=== PATIENT | male | born 1940 | race Caucasian/White ===

== ENCOUNTER 2016-08-22 09:31 | Emergency (ER) | payer MEDICARE, BC ==
[~2016-08-22] VITALS: Ht 175.3 cm; Wt 87.1 kg
[~2016-08-22 09:31] MED LIST: /ESOM40CA PO; /MOXI40TA PO; ACET50TA PO; LIPI20TA PO; MULTCAP11 PO; MYCO500T PO; NEUR300C PO; PERSERVISION PO; SYMB16INH INH; VENTAER INH
[2016-08-22] MEDS ORDERED: PYRI60TA2 PO (09:47)
[2016-08-22] MEDS ORDERED: CLIN1CAP5 PO (09:47)
[2016-08-22] MEDS ORDERED: NEXI40CA PO (09:47)
[2016-08-22] MEDS ORDERED: DOXE150C7 PO (09:47)
[2016-08-22] MEDS ORDERED: SAVICAP PO (09:47)
[2016-08-22] MEDS ORDERED: ATOR1TAB21 PO (09:47)
[2016-08-22] MEDS ORDERED: NORCO, ANEXSIA 5/325MG TABLET (HYDROcodone/ACETAMINOPHEN) PO ONE (10:15)
--- NOTE | 2016-08-22 11:23 | REP ---
MAXILLOFACIAL CT WITHOUT CONTRAST: HISTORY: Foreign body. The sinuses are clear. The osteomeatal units are patent. The middle and inferior nasal turbinates are partially paradoxical. There is mild deviation of the nasal septum to the right anteriorly and minimal deviation to the left posteriorly. A spur is present arising from the left side of the nasal septum. The cribriform plate, medial marcano of the orbits and optic canals are intact. The carotid canals form a segment of the posterolateral marcano of the sphenoid sinus. The sphenoid sinus septa insert into the internal carotid canal marcano. Minimal soft tissue swelling is present overlying the left maxillary sinus. There is no radiopaque foreign body. IMPRESSION: There is no acute or chronic sinusitis. Signed by Marcial Bernal MD 08/22/2016 11:26 A
[2016-08-22] MEDS ORDERED: PERC5TAB6 PO (11:24)
[2016-08-22 11:31] VITALS: BP 131/71
[2016-08-23] MEDS ORDERED: PERC10TA17 PO (09:58)
[2016-08-23] MEDS ORDERED: BACT800T5 PO (13:03)
== END 2016-08-22 11:41 | disposition home or self-care (01) ==
LOC: M ED 10:22
DX: L03.211 Cellulitis of face (principal); E78.5 Hyperlipidemia, unspecified; Z79.899 Other long term (current) drug therapy; Z87.891 Personal history of nicotine dependence

== ENCOUNTER 2016-08-23 04:20 | Emergency (ER) | payer MEDICARE, BC ==
[~2016-08-23] VITALS: Ht 175.3 cm; Wt 87.1 kg
[~2016-08-23 04:20] MED LIST changes: +ATOR1TAB21 PO; +CLIN1CAP5 PO; +DOXE150C7 PO; +NEXI40CA PO; +PERC5TAB6 PO; +PYRI60TA2 PO; +SAVICAP PO
[2016-08-23] MEDS ORDERED: KETOROLAC 30 MG/ML VIAL (J1885) IV ONE (06:45)
[2016-08-23] MEDS ORDERED: NS 1,000 ML IV ONE (06:45)
[2016-08-23] MEDS ORDERED: MORPHINE 2 MG/ML 1ML SYRINGE IV ONE (06:45)
[2016-08-23] MEDS ORDERED: VANCOMYCIN HCL 1,000 MG, VIAL MATE ADAPTER 1 EACH in D5W 250 ML IV ONE (07:30)
[2016-08-23] MEDS ORDERED: CLINDAMYCIN 600 MG in APPROPRIATE DILUENT 1 EA IV ONE (07:30)
[2016-08-23 07:50] LABS: BASO % 0.5 % (0.0-1.0); EOS % 0.8 % (0.0-3.0); LARGE UNSTAINED CELL # 0.1 K/mm3 (0.0-0.4); LYMPH # 0.7 K/mm3 (1.5-4.5); LYMPH % 12.9 % (24.0-44.0); MEAN CORPUSCULAR HEMOGLOBIN 29.9 pg (27.0-33.0); MEAN CORPUSCULAR HGB CONC 33.6 g/dl (32.0-36.5); MEAN CORPUSCULAR VOLUME 89.2 fl (80.0-96.0); MONO # 0.4 K/mm3 (0.0-0.8); MONO % 7.4 % (0.0-5.0); NEUTROPHILS # 3.9 K/mm3 (1.8-7.7); NEUTROPHILS % 76.4 % (36.0-66.0); PLATELET COUNT, AUTOMATED 177 k/mm3 (150-450); RED CELL DISTRIBUTION WIDTH 12.5 % (11.5-14.5); WHITE BLOOD COUNT 5.2 K/mm3 (4.0-10.0)
[2016-08-23 07:56] LABS: INR 0.92
[2016-08-23 08:12] LABS: ALBUMIN 3.8 GM/DL (3.2-5.2); ALBUMIN/GLOBULIN RATIO 1.41 (1.00-1.93); ALKALINE PHOSPHATASE 75 U/L (45-117); ALT/SGPT 21 U/L (12-78); ANION GAP 4 MEQ/L (8-16); AST/SGOT 16 U/L (15-37); BILIRUBIN,DIRECT 0.1 MG/DL (0.0-0.2); BILIRUBIN,TOTAL 0.4 MG/DL (0.2-1.0); BLOOD UREA NITROGEN 15 MG/DL (7-18); CALCIUM LEVEL 8.3 MG/DL (8.8-10.2); CARBON DIOXIDE LEVEL 30 MEQ/L (21-32); CHLORIDE LEVEL 106 MEQ/L (98-107); CREATININE FOR GFR 0.92 MG/DL (0.70-1.30); GLOMERULAR FILTRATION RATE > 60.0 (>42); GLUCOSE, FASTING 113 MG/DL (83-110); POTASSIUM SERUM 3.6 MEQ/L (3.5-5.1); SODIUM LEVEL 140 MEQ/L (136-145); TOTAL PROTEIN 6.5 GM/DL (6.4-8.2)
[2016-08-23] MEDS ORDERED: methylPREDNISolone INJ 125 MG/2 ML VIAL (J2930) IV ONE (08:30)
[2016-08-23] MEDS ORDERED: PERC10TA17 PO (09:58)
[2016-08-23] MEDS ORDERED: PERCOCET 5MG/325MG TAB PO ONE (10:00)
[2016-08-23 10:04] VITALS: BP 163/79
[2016-08-23] MEDS ORDERED: BACT800T5 PO (13:03)
[2016-08-24] MEDS ORDERED: CLEO300C2 PO (09:53)
[2016-08-24] MEDS ORDERED: DOXE25CA PO (09:56)
[2016-08-24] MEDS ORDERED: BACT800T5 PO (09:56)
[2016-08-24] MEDS ORDERED: OXYC1TAB16 PO (09:56)
== END 2016-08-23 10:16 | disposition home or self-care (01) ==
LOC: M ED 05:16
DX: L03.211 Cellulitis of face (principal); E78.5 Hyperlipidemia, unspecified; K21.9 Gastro-esophageal reflux disease without esophagitis; G70.00 Myasthenia gravis without (acute) exacerbation; Z79.899 Other long term (current) drug therapy; Z87.891 Personal history of nicotine dependence

== ENCOUNTER 2016-08-24 09:24 | Inpatient (IN) | payer MEDICARE, BC ==
[2016-08-23] MEDS: MYCOPHENOLATE MOFETIL 250 MG CAP (J7517) PO SCH (09:00)
[~2016-08-24] VITALS: Ht 175.3 cm; Wt 87.4 kg
[~2016-08-24 09:24] MED LIST changes: +BACT800T5 PO; +PERC10TA17 PO
[2016-08-24] MEDS ORDERED: FLUORESCEIN OPHTH 1 MG STRIP OU ONE ×2 (09:45→17:35)
[2016-08-24] MEDS ORDERED: ONDANSETRON 4MG/2ML VIAL (J2405) IV ONE (09:45)
[2016-08-24] MEDS ORDERED: CLEO300C2 PO (09:53)
[2016-08-24] MEDS ORDERED: DOXE25CA PO (09:56)
[2016-08-24] MEDS ORDERED: OXYC1TAB16 PO (09:56)
[2016-08-24] MEDS ORDERED: BACT800T5 PO (09:56)
[2016-08-24 10:21] LABS: BASO % 0.4 % (0.0-1.0); EOS % 0.5 % (0.0-3.0); LARGE UNSTAINED CELL # 0.1 K/mm3 (0.0-0.4); LARGE UNSTAINED CELL % 1.6 % (0.0-4.0); LYMPH # 0.5 K/mm3 (1.5-4.5); LYMPH % 8.3 % (24.0-44.0); MEAN CORPUSCULAR HEMOGLOBIN 28.4 pg (27.0-33.0); MEAN CORPUSCULAR HGB CONC 31.9 g/dl (32.0-36.5); MEAN CORPUSCULAR VOLUME 89.2 fl (80.0-96.0); MONO # 0.3 K/mm3 (0.0-0.8); MONO % 5.1 % (0.0-5.0); NEUTROPHILS # 4.7 K/mm3 (1.8-7.7); NEUTROPHILS % 84.2 % (36.0-66.0); PLATELET COUNT, AUTOMATED 153 k/mm3 (150-450); RED CELL DISTRIBUTION WIDTH 12.5 % (11.5-14.5); WHITE BLOOD COUNT 5.6 K/mm3 (4.0-10.0)
[2016-08-24 10:41] LABS: ALBUMIN 3.4 GM/DL (3.2-5.2); ALBUMIN/GLOBULIN RATIO 1.13 (1.00-1.93); ALKALINE PHOSPHATASE 71 U/L (45-117); ALT/SGPT 22 U/L (12-78); ANION GAP 8 MEQ/L (8-16); AST/SGOT 20 U/L (15-37); BILIRUBIN,DIRECT < 0.1 MG/DL (0.0-0.2); BILIRUBIN,TOTAL 0.3 MG/DL (0.2-1.0); BLOOD UREA NITROGEN 13 MG/DL (7-18); CALCIUM LEVEL 8.5 MG/DL (8.8-10.2); CARBON DIOXIDE LEVEL 28 MEQ/L (21-32); CHLORIDE LEVEL 109 MEQ/L (98-107); CREATININE FOR GFR 0.89 MG/DL (0.70-1.30); GLOMERULAR FILTRATION RATE > 60.0 (>42); GLUCOSE, FASTING 116 MG/DL (83-110); POTASSIUM SERUM 3.6 MEQ/L (3.5-5.1); SODIUM LEVEL 145 MEQ/L (136-145); TOTAL PROTEIN 6.4 GM/DL (6.4-8.2)
[2016-08-24 10:54] LABS: ERYTHROCYTE SEDIMENTATION RATE 7 mm/hr (0-20)
[2016-08-24] MEDS ORDERED: VANCOMYCIN HCL 1,000 MG, VIAL MATE ADAPTER 1 EACH in D5W 250 ML IV ONE (11:30)
[2016-08-24] MEDS ORDERED: ONDANSETRON 4MG/2ML VIAL (J2405) IV PRN (13:30)
[2016-08-24] MEDS ORDERED: PERCOCET 5MG/325MG TAB PO PRN (13:30)
[2016-08-24] MEDS ORDERED: PYRIDOSTIGMINE 60 MG TAB PO PRN (13:30)
--- NOTE | 2016-08-24 14:55 | HPE ---
DATE OF ADMISSION: 08/24/2016 PRIMARY CARE PHYSICIAN: Dr. Linda CHIEF COMPLAINT: Left sided facial pain. HISTORY OF PRESENT ILLNESS: The patient is a 76-year-old man who had redness below his left eye, which started approximately six days ago. He was seen by his primary care provider and started on Bactrim. However, it progressed and the pain became worse, had a burning nature. He presented to the emergency room. There was concern for preseptal cellulitis. The patient was added clindamycin to his Bactrim. However, his symptoms progressed and he continued to return to the ER daily until he presented today with a fairly diffuse rash on his left periorbital area extending to the nose. The patient denies fevers, but associates a burning sensation to the left side of his face. He denied dysphagia, pain with ocular movements, difficulty with vision on the left side of his face. He denies chest pain, shortness of breath. PAST MEDICAL HISTORY: Myasthenia gravis. Dyslipidemia. Gastroesophageal reflux disease (GERD). Allergic rhinitis. Vitamin D deficiency. Chronic obstructive pulmonary disease (COPD). HOME MEDICATIONS: - clindamycin 300 mg three times a day as prescribed by the emergency room - Bactrim DS one tablet by mouth twice a day as prescribed by his primary care provider - oxycodone/acetaminophen 10/325 one tablet every 4 hours as needed pain - SAVision two capsules by mouth daily - atorvastatin 20 mg at bedtime - doxepin 25 mg at bedtime - Nexium 40 mg at bedtime - mycophenolate 1 gram by mouth twice a day - pyridostigmine 60 mg three times a day as needed for pain ALLERGIES: No known drug allergies. PAST SURGICAL HISTORY: He had a knee arthroplasty and a hernia repair. SOCIAL HISTORY: He does utilize chewing tobacco. He denies any other tobacco products or smoking tobacco. He denies alcohol or illicit drug use. He lives with his and daughter. REVIEW OF SYSTEMS: Negative other than history of present illness. FAMILY HISTORY: Noncontributory. PHYSICAL EXAMINATION: Temperature 97.5, pulse 73, respiratory rate 16, blood pressure 151/72, oxygen saturation 100% on room air. GENERAL: He is a pleasant elderly male lying in a stretcher at a 60 degree angle. He does not appear to be in any acute distress. HEENT: He does have a fairly diffuse erythematous rash in the V1 distribution on the left side of his face with vesicles of varying stages, some of which have ruptured with dry superficial honeycombing. It does extend the left side of his nose. He does have some left eyelid droop associated with this. His extraocular muscles are intact. There does appear to be any conjunctivitis. He denies any pain and there is nothing to suggest uveitis. Acuity on confrontation is intact. CARDIOVASCULAR EXAM: S1 and S2 regular. RESPIRATORY EXAM: Clear. ABDOMINAL EXAM: Obese. EXTREMITIES: No clubbing, cyanosis, or edema. LABORATORY STUDIES: WBC 5.6, hemoglobin 13.3, hematocrit 41.7, platelet count 153. Chemistry panel: Sodium 145, potassium 3.6, chloride 109, bicarb 28, BUN 13, creatinine 0.8. The patient did have a maxillofacial CT scan completed during his ER visit on 08/22 which revealed no acute or chronic sinusitis. 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 PROBLEMS: 1. Herpes ophthalmicus. The patient is on mycophenolate so he is mildly immunocompromised. We will place him on acyclovir 500 mg every 8 hours IV. I will also continue him on clindamycin IV to assess any superimposed cellulitic infection leading to the break in the skin from his herpes ophthalmicus. I have spoken with Dr. Evans of opthalmology who will see the patient in consultation. I will also provide the patient with 10 mg of amitriptyline by mouth at bedtime for pain. He may benefit from titration up with this. Will also provide him with additional pain medication as a standby as well as antiemetics. He will be admitted to the medical/surgical floor to the care of Dr. Castro who will continue following the patient at 7:00 a.m. 2. Dyslipidemia. Continue with atorvastatin. 3. Gastroesophageal reflux disease (GERD). Continue with Protonix. 4. Myasthenia gravis. Continue with pyridostigmine and mycophenolate. 5. Deep vein thrombosis (DVT) prophylaxis. The patient will be on Lovenox. DISPOSITION: The patient will be admitted to Dr. Castro's service who will follow the patient at 7:00 a.m.
[2016-08-24] MEDS: ACYCLOVIR 500 MG in D5W MINI-BAG PLUS 100 ML IV SCH (15:08)
[2016-08-24 15:30] VITALS: BP 176/83
[2016-08-24] MEDS: CLINDAMYCIN 600 MG in APPROPRIATE DILUENT 1 EA IV SCH (16:47)
[2016-08-24] MEDS ORDERED: TETRACAINE 0.5% OPHTH SOLN 4ML XX ONE (17:15)
--- NOTE | 2016-08-24 20:33 | ECGEPIP ---
Stationary ECG Study [facility] - ED Test Date: 2016-08-24 Pat Name: RENE LOMBARDI Department: Room: - Gender: M Care Worker: rn : 1940 Requested By: Eileen Rey Order Number: [id number] Reading MD: Eileen Rey Measurements Intervals [place] Rate: 77 P: 47 [place]: 167 QRS: 53 QRSD: 98 T: 37 QT: 353 QTc: 401 Interpretive Statements SINUS RHYTHM WITH OCCASIONAL VENTRICULAR PREMATURE COMPLEXES NSTTW ABNORMALITY DECREASED RATE 02/05/13 Electronically Signed On 08-24-2016 20:32:56 EDT by Eileen Rey
[2016-08-24 21:00] VITALS: BP 139/65
[2016-08-24] MEDS: DOXEPIN 25 MG CAP PO SCH (21:05)
[2016-08-24] MEDS: AMITRIPTYLINE 10 MG TAB PO SCH (21:05)
[2016-08-24] MEDS: ACETAMINOPHEN TAB 650MG DOSE (2X325MG) PO PRN (21:05)
[2016-08-24] MEDS: PANTOPRAZOLE 40MG TAB (PROTONIX) PO SCH (21:05)
[2016-08-24] MEDS: ATORVASTATIN 20 MG TAB PO SCH (21:05)
[2016-08-24] MEDS: MYCOPHENOLATE MOFETIL 250 MG CAP (J7517) PO SCH (21:05)
[2016-08-24] MEDS: ERYTHROMYCIN OPHTH OINT OS SCH (21:06)
[2016-08-24] MEDS: MUPIROCIN 2% OINT 22 GM TUBE TOP SCH (21:06)
[2016-08-25] MEDS: CLINDAMYCIN 600 MG in APPROPRIATE DILUENT 1 EA IV SCH ×2 (01:32→08:28)
[2016-08-25] MEDS: ACETAMINOPHEN TAB 650MG DOSE (2X325MG) PO PRN ×3 (01:38→21:12)
[2016-08-25] MEDS: ERYTHROMYCIN OPHTH OINT OS SCH ×7 (04:26→23:37)
[2016-08-25] MEDS: ACYCLOVIR 500 MG in D5W MINI-BAG PLUS 100 ML IV SCH ×5 (06:13→23:38)
[2016-08-25 07:00] VITALS: BP 145/70
[2016-08-25] MEDS: PERCOCET 5MG/325MG TAB PO PRN (07:03)
[2016-08-25 08:02] LABS: BASO % 0.6 % (0.0-1.0); LARGE UNSTAINED CELL # 0.1 K/mm3 (0.0-0.4); LARGE UNSTAINED CELL % 2.9 % (0.0-4.0); LYMPH # 0.6 K/mm3 (1.5-4.5); LYMPH % 13.4 % (24.0-44.0); MEAN CORPUSCULAR HEMOGLOBIN 29.4 pg (27.0-33.0); MEAN CORPUSCULAR HGB CONC 33.5 g/dl (32.0-36.5); MEAN CORPUSCULAR VOLUME 87.6 fl (80.0-96.0); MONO # 0.4 K/mm3 (0.0-0.8); MONO % 9.2 % (0.0-5.0); NEUTROPHILS # 3.4 K/mm3 (1.8-7.7); PLATELET COUNT, AUTOMATED 144 k/mm3 (150-450); RED CELL DISTRIBUTION WIDTH 12.6 % (11.5-14.5); WHITE BLOOD COUNT 4.6 K/mm3 (4.0-10.0)
[2016-08-25 08:13] LABS: ANION GAP 3 MEQ/L (8-16); BLOOD UREA NITROGEN 11 MG/DL (7-18); CALCIUM LEVEL 7.7 MG/DL (8.8-10.2); CARBON DIOXIDE LEVEL 30 MEQ/L (21-32); CHLORIDE LEVEL 106 MEQ/L (98-107); CREATININE FOR GFR 0.92 MG/DL (0.70-1.30); GLOMERULAR FILTRATION RATE > 60.0 (>42); GLUCOSE, FASTING 116 MG/DL (83-110); POTASSIUM SERUM 3.2 MEQ/L (3.5-5.1); SODIUM LEVEL 139 MEQ/L (136-145)
[2016-08-25] MEDS: MYCOPHENOLATE MOFETIL 250 MG CAP (J7517) PO SCH ×2 (08:28→20:01)
[2016-08-25] MEDS: ENOXAPARIN 40 MG/0.4 ML SYRINGE (J1650) SC SCH (08:29)
[2016-08-25] MEDS: MUPIROCIN 2% OINT 22 GM TUBE TOP SCH ×2 (08:31→20:01)
[2016-08-25 08:46] LABS: ERYTHROCYTE SEDIMENTATION RATE 12 mm/hr (0-20)
[2016-08-25] MEDS: MEROPENEM INJ 1 GM in D5W MINI-BAG PLUS 100 ML IV SCH ×2 (10:33→18:19)
--- NOTE | 2016-08-25 10:44 | IPNPDOC ---
Text Note Date of Service The patient was seen on 08/25/16. NOTE Subjective: Pt states he has minimal improvement of Left face. No vision changes. No eye pain. Objective: Vitals: (see below) General: No acute distress, laying comfortably in bed. HEENT: Moist mucous membranes. Left face with erythematous rash, honeycombing more so near the left side of the nose. Some minimal left eyelid droop. Visual gray intact. No vesicles noted today. Erythema does extend to the left for head. Neck: No JVD or lymphadenopathy Cardiac: RRR, No murmurs Pulm: Clear to auscultation b/l. No wheezing, rhonchi Abd: NT/ND + BS Ext: No edema or cyanosis Labs (see below) Images: CT Maxillofacial 08/24/16 The sinuses are clear. The osteomeatal units are patent. The middle and inferior nasal turbinates are partially paradoxical. There is mild deviation of the nasal septum to the right anteriorly and minimal deviation to the left posteriorly. A spur is present arising from the left side of the nasal septum. The cribriform plate, medial marcano of the orbits and optic canals are intact. The carotid canals form a segment of the posterolateral marcano of the sphenoid sinus. The sphenoid sinus septa insert into the internal carotid canal marcano. Minimal soft tissue swelling is present overlying the left maxillary sinus. There is no radiopaque foreign body. IMPRESSION: There is no acute or chronic sinusitis. Assessment/Plan 1. Herpes zoster affecting the left side of the face - patient is immunocompromised as he is on mycophenolate. Also gives a history of using a lens grinder rough 2 days prior to this happening raising suspicion for superimposed infection. Continue those acyclovir. Clindamycin changed to meropenem. Ophthalmology consultation with Dr. Evans. On amitriptyline and pain is well- controlled. CT maxillofacial (see above). 2. Myasthenia gravis- stable on mycophenolate as well as pyridostigmine 3. Hyperlipidemia- on statin 4. GERD- on PPI DVT prophy: Lovenox VS,Fishbone, I+O VS, Fishbone, I+O Laboratory Tests 08/25/16 07:44 Calcium Level 7.7 L, Red Blood Count 4.16 L, Mean Corpuscular Volume 87.6, Mean Corpuscular Hemoglobin 29.4, Mean Corpuscular Hemoglobin Concent 33.5, Red Cell Distribution Width 12.6, Neutrophils (%) (Auto) 73.0 H, Lymphocytes (%) (Auto) 13.4 L, Monocytes (%) (Auto) 9.2 H, Eosinophils (%) (Auto) 1.0, Basophils (%) ( Auto) 0.6, Neutrophils # (Auto) 3.4, Lymphocytes # (Auto) 0.6 L, Monocytes # ( Auto) 0.4, Eosinophils # (Auto) 0.0, Basophils # (Auto) 0.0 Vital Signs Date Time Temp Pulse Resp B/P Pulse Ox O2 Delivery O2 Flow Rate FiO2 08/25/16 07:33 18 Room Air 08/25/16 07:00 99.1 80 145/70 96 I&O- Last 24 Hours up to 6 AM 08/25/16 05:59 Intake Total 1130 ml Output Total 100 ml Balance 1030 ml LANA ACOSTA MD Aug 25, 2016 10:44
[2016-08-25 14:00] VITALS: BP 142/69
[2016-08-25] MEDS ORDERED: POTASSIUM CHLORIDE 10 MEQ SR TABLET PO ONE (15:00)
[2016-08-25] MEDS: DOXEPIN 25 MG CAP PO SCH (20:01)
[2016-08-25] MEDS: ATORVASTATIN 20 MG TAB PO SCH (20:01)
[2016-08-25] MEDS: PANTOPRAZOLE 40MG TAB (PROTONIX) PO SCH (20:01)
[2016-08-25] MEDS: AMITRIPTYLINE 10 MG TAB PO SCH (20:01)
[2016-08-25 21:00] VITALS: BP 142/84
[2016-08-26] MEDS: MEROPENEM INJ 1 GM in D5W MINI-BAG PLUS 100 ML IV SCH ×3 (01:04→21:36)
[2016-08-26] MEDS: ACETAMINOPHEN TAB 650MG DOSE (2X325MG) PO PRN ×2 (02:29→14:05)
[2016-08-26] MEDS: ERYTHROMYCIN OPHTH OINT OS SCH ×5 (04:44→21:36)
[2016-08-26] MEDS: PERCOCET 5MG/325MG TAB PO PRN (04:54)
[2016-08-26 06:10] VITALS: BP 161/81
[2016-08-26 06:16] LABS: BASO % 0.4 % (0.0-1.0); EOS # 0.1 K/mm3 (0.0-0.50); EOS % 1.2 % (0.0-3.0); LARGE UNSTAINED CELL # 0.2 K/mm3 (0.0-0.4); LARGE UNSTAINED CELL % 3.4 % (0.0-4.0); LYMPH # 0.7 K/mm3 (1.5-4.5); LYMPH % 13.7 % (24.0-44.0); MEAN CORPUSCULAR HEMOGLOBIN 30.5 pg (27.0-33.0); MEAN CORPUSCULAR HGB CONC 34.5 g/dl (32.0-36.5); MEAN CORPUSCULAR VOLUME 88.4 fl (80.0-96.0); MONO # 0.3 K/mm3 (0.0-0.8); MONO % 6.5 % (0.0-5.0); NEUTROPHILS # 3.7 K/mm3 (1.8-7.7); NEUTROPHILS % 74.8 % (36.0-66.0); PLATELET COUNT, AUTOMATED 164 k/mm3 (150-450); RED CELL DISTRIBUTION WIDTH 12.4 % (11.5-14.5)
[2016-08-26] MEDS: ACYCLOVIR 500 MG in D5W MINI-BAG PLUS 100 ML IV SCH (06:17)
[2016-08-26 06:35] LABS: ANION GAP 8 MEQ/L (8-16); BLOOD UREA NITROGEN 7 MG/DL (7-18); CALCIUM LEVEL 7.9 MG/DL (8.8-10.2); CARBON DIOXIDE LEVEL 27 MEQ/L (21-32); CHLORIDE LEVEL 103 MEQ/L (98-107); CREATININE FOR GFR 0.82 MG/DL (0.70-1.30); GLOMERULAR FILTRATION RATE > 60.0 (>42); GLUCOSE, FASTING 116 MG/DL (83-110); POTASSIUM SERUM 3.1 MEQ/L (3.5-5.1); SODIUM LEVEL 138 MEQ/L (136-145)
[2016-08-26] MEDS ORDERED: POTASSIUM CHLORIDE 10 MEQ SR TABLET PO ONE (08:00)
[2016-08-26] MEDS: MUPIROCIN 2% OINT 22 GM TUBE TOP SCH ×2 (09:00→21:37)
[2016-08-26] MEDS: MYCOPHENOLATE MOFETIL 250 MG CAP (J7517) PO SCH ×2 (09:09→21:38)
[2016-08-26] MEDS: ENOXAPARIN 40 MG/0.4 ML SYRINGE (J1650) SC SCH (09:09)
[2016-08-26] MEDS ORDERED: ISOVUE-370 76% 100ML VIAL (Q9967) As Ordered ONE (09:44)
[2016-08-26] MEDS ORDERED: VANCOMYCIN HCL 1,000 MG, VIAL MATE ADAPTER 1 EACH in D5W 250 ML IV ONE (10:00)
--- NOTE | 2016-08-26 10:20 | PHACANCOPD ---
PHARMACY VANCOMYCIN DOSING Pt Demographics Demographics Patient Age:76 , Weight:87.200 , Gender: male Adjusted Body Weight Date: 08/26/16, Adjusted Body Weight: [NA] Kg Events Past 24 Hours Events Past 24 Hours: YES: Fever, NO: Change in CrCl, Dialysis, Diuretic Therapy, Elevation in WBC, Other, Pending Diagnostics, Pending Procedures Vancomycin Vancomycin indication: SEPSIS Vancomycin Target Ranges: 15-20 mcg/ml Vancomycin Load Y/N: Yes Load Dose Date Time Vancomycin Load Dose: 1000mg Date: 08/26 Time: ~10am Vancomycin Dose Date: 08/26/16. Current Vancomycin Dose: [1g q12h @18] Intermittent Dosing?: No Labs Labs Vital Signs Label Value Date Time Patient Temperature 99.5 degrees F 08/26/16 0626 Temperature Source Rectal 08/26/16 0626 Patient Temperature 100.2 degrees F 08/26/16 0610 Temperature Source Rectal 08/26/16 0610 Patient Temperature 100.3 degrees F 08/26/16 0107 Temperature Source Rectal 08/26/16 0107 Item Value Date Time White Blood Count 5.6 K/mm3 08/24/16 1004 White Blood Count 4.6 K/mm3 08/25/16 0744 White Blood Count 5.0 K/mm3 08/26/16 0532 Creatinine 0.89 MG/DL 08/24/16 1004 Creatinine 0.92 MG/DL 08/25/16 0744 Creatinine 0.82 MG/DL 08/26/16 0532 C-Reactive Protein, Quantitative 0.70 MG/DL H 08/24/16 1004 C-Reactive Protein, Quantitative 0.86 MG/DL H 08/25/16 0744 C-Reactive Protein, Quantitative 0.92 MG/DL H 08/26/16 0532 Micro Microbiology 08/24/16 Blood Culture - Preliminary, Resulted No growth after 24 hours . All specim... 08/24/16 Blood Culture - Preliminary, Resulted No growth after 24 hours . All specim... 08/25/16 Wound Culture, Received Pending 08/24/16 Herpes Virus DNA (PCR), Received Pending Creatinine Clearance Date:08/26/16. Creatinine Clearance: [77 ml/min]. Assessment and Plan Maintaining Current Dose?: Yes Reason for dose change: No Dose Change Pharmacist Note Pharmacist Note Date: 08/26/16. Pharmacist note: pt was admitted on 08/24 for facial/ophthalmic cellulitis secondary to herpes zoster. He was treated with clindamycin and Bactrim DS as an outpatient. During admission, he was started on acyclovir IV and Clindamycin 600mg IV q8h. After 24 hours, clindamycin was switched to meropenem. Vancomycin has been added today. Pt has not been on vancomycin at our facility in the past and does not have an apparent Hx of MRSA. Pt's medical Hx is significant for myasthenia gravis and is on immunosuppressive therapy ( cellcept). Pt has been febrile x24 hours, SCr is at baseline and is stable, cultures are pending. I have put in a vancomycin IV 1g dose for this morning and started 1g q12h dosing this evening. We will continue to monitor and order a trough as necessary. Sandro Sesay Pharm.D. Aug 26, 2016 10:20
--- NOTE | 2016-08-26 10:51 | IPNPDOC ---
Text Note Date of Service The patient was seen on 08/26/16. NOTE Subjective: Pt states his swelling is worse today. No vision changes. No eye pain. Objective: Vitals: (see below) General: No acute distress, laying comfortably in bed. HEENT: Moist mucous membranes. Left face with erythematous rash, honeycombing more so near the left side of the nose, which has increased and weeping. Some minimal left eyelid droop. Visual gray intact. Erythema does extend to the left for head and left lip; worse than yesterday. No airway compromise. Neck: No JVD or lymphadenopathy Cardiac: RRR, No murmurs Pulm: Clear to auscultation b/l. No wheezing, rhonchi Abd: NT/ND + BS Ext: No edema or cyanosis Labs (see below) Images: CT Maxillofacial 08/24/16 The sinuses are clear. The osteomeatal units are patent. The middle and inferior nasal turbinates are partially paradoxical. There is mild deviation of the nasal septum to the right anteriorly and minimal deviation to the left posteriorly. A spur is present arising from the left side of the nasal septum. The cribriform plate, medial marcano of the orbits and optic canals are intact. The carotid canals form a segment of the posterolateral marcano of the sphenoid sinus. The sphenoid sinus septa insert into the internal carotid canal marcano. Minimal soft tissue swelling is present overlying the left maxillary sinus. There is no radiopaque foreign body. IMPRESSION: There is no acute or chronic sinusitis. Assessment/Plan 1. Herpes zoster affecting the left side of the face - patient is immunocompromised as he is on mycophenolate. Also gives a history of using a chicle grinder feeder 2 days prior to this happening raising suspicion for superimposed infection. Discussed with Dr. Chopra, will increase acyclovir to 10mg/kg, change meropenem to vancomycin, and warm soaks. Ophthalmology consultation with Dr. Evans. On amitriptyline and pain is well-controlled. CT maxillofacial (see above ). Will repeat today CT today. 2. Myasthenia gravis- stable on mycophenolate as well as pyridostigmine 3. Hyperlipidemia- on statin 4. GERD- on PPI DVT prophy: Lovenox VS,Fishbone, I+O VS, Fishbone, I+O Laboratory Tests 08/26/16 05:32 Calcium Level 7.9 L, Red Blood Count 4.31, Mean Corpuscular Volume 88.4, Mean Corpuscular Hemoglobin 30.5, Mean Corpuscular Hemoglobin Concent 34.5, Red Cell Distribution Width 12.4, Neutrophils (%) (Auto) 74.8 H, Lymphocytes (%) (Auto) 13.7 L, Monocytes (%) (Auto) 6.5 H, Eosinophils (%) (Auto) 1.2, Basophils (%) ( Auto) 0.4, Neutrophils # (Auto) 3.7, Lymphocytes # (Auto) 0.7 L, Monocytes # ( Auto) 0.3, Eosinophils # (Auto) 0.1, Basophils # (Auto) 0.0 Vital Signs Date Time Temp Pulse Resp B/P Pulse Ox O2 Delivery O2 Flow Rate FiO2 08/26/16 06:26 99.5 08/26/16 06:10 75 18 161/81 94 Room Air I&O- Last 24 Hours up to 6 AM 08/26/16 05:59 Intake Total 3270 ml Output Total 2000 ml Balance 1270 ml LANA ACOSTA MD Aug 26, 2016 10:51
--- NOTE | 2016-08-26 12:06 | REP ---
MAXILLOFACIAL CT WITH CONTRAST: HISTORY: Increased facial swelling. CONTRAST: Isovue 370, 75 mL. COMPARISON: 08/22/2016. The sinuses are clear. The osteomeatal units are patent. The middle and inferior nasal turbinates are partially paradoxical. There is mild deviation of the nasal septum to the right anteriorly and minimal deviation of the nasal septum to the left posteriorly. A spur is present arising from the left side of the nasal septum. The cribriform plate, medial marcano of the orbits, and optic canals are intact. The carotid canals form a segment of the posterolateral marcano of the sphenoid sinus. The sphenoid sinus septa insert into the internal carotid canal marcano. There is soft tissue thickening along the buccal surface of the left maxilla and mandible consistent with a phlegmon. There is enlargement of the left platysma muscle. Stranding is present in the overlying subcutaneous tissue. Soft tissue thickening is present overlying the left maxillary sinus and orbit. These findings are consistent with edema. The naso-, devin-, and hypopharynx are normal in appearance. Small lymph nodes less than 1 cm in size are present in the internal jugular chains, posterior triangles, and submandibular areas. IMPRESSION: 1. There is soft tissue thickening along the buccal surface of the left maxilla and body of the mandible consistent with a small phlegmon. Edema is present of the overlying subcutaneous tissue that has increased compared to the previous study. Signed by Marcial Bernal MD 08/27/2016 08:11 A
[2016-08-26 12:37] LABS: ANION GAP 4 MEQ/L (8-16); BLOOD UREA NITROGEN 7 MG/DL (7-18); CALCIUM LEVEL 8.2 MG/DL (8.8-10.2); CARBON DIOXIDE LEVEL 31 MEQ/L (21-32); CHLORIDE LEVEL 101 MEQ/L (98-107); CREATININE FOR GFR 0.97 MG/DL (0.70-1.30); GLOMERULAR FILTRATION RATE > 60.0 (>42); GLUCOSE, FASTING 104 MG/DL (83-110); SODIUM LEVEL 136 MEQ/L (136-145)
[2016-08-26 14:00] VITALS: BP 146/74
[2016-08-26] MEDS ORDERED: NS IV SCH (15:00)
[2016-08-26] MEDS ORDERED: ACYCLOVIR IV SCH (15:00)
[2016-08-26] MEDS: ACYCLOVIR IV SCH (15:25)
[2016-08-26] MEDS: NS IV SCH (15:25)
[2016-08-26] MEDS: D5W/0.9% SODIUM CHLORIDE 1,000 ML IV SCH (15:25)
[2016-08-26] MEDS: VANCOMYCIN HCL 1,000 MG, VIAL MATE ADAPTER 1 EACH in D5W 250 ML IV SCH (18:18)
[2016-08-26 19:05] LABS: ANION GAP 5 MEQ/L (8-16); BLOOD UREA NITROGEN 5 MG/DL (7-18); CALCIUM LEVEL 8.4 MG/DL (8.8-10.2); CARBON DIOXIDE LEVEL 32 MEQ/L (21-32); CHLORIDE LEVEL 103 MEQ/L (98-107); CREATININE FOR GFR 0.95 MG/DL (0.70-1.30); GLOMERULAR FILTRATION RATE > 60.0 (>42); GLUCOSE, FASTING 105 MG/DL (83-110); POTASSIUM SERUM 3.7 MEQ/L (3.5-5.1); SODIUM LEVEL 140 MEQ/L (136-145)
[2016-08-26] MEDS ORDERED: TRIFLURIDINE 1% OPHTH SOLN 7.5 ML OS SCH (20:15)
[2016-08-26] MEDS: DOXEPIN 25 MG CAP PO SCH (21:37)
[2016-08-26] MEDS: TRIFLURIDINE 1% OPHTH SOLN 7.5 ML OS SCH (21:37)
[2016-08-26] MEDS: PANTOPRAZOLE 40MG TAB (PROTONIX) PO SCH (21:38)
[2016-08-26] MEDS: ATORVASTATIN 20 MG TAB PO SCH (21:38)
[2016-08-26] MEDS: AMITRIPTYLINE 10 MG TAB PO SCH (21:38)
[2016-08-26 22:00] VITALS: BP 124/80
[2016-08-27] MEDS: NS IV SCH ×4 (00:22→22:35)
[2016-08-27] MEDS: ERYTHROMYCIN OPHTH OINT OS SCH ×6 (00:22→20:49)
[2016-08-27] MEDS: ACYCLOVIR IV SCH ×4 (00:22→22:35)
[2016-08-27] MEDS: D5W/0.9% SODIUM CHLORIDE 1,000 ML IV SCH ×3 (00:23→21:04)
[2016-08-27] MEDS: TRIFLURIDINE 1% OPHTH SOLN 7.5 ML OS SCH ×13 (00:25→22:35)
[2016-08-27] MEDS: PERCOCET 5MG/325MG TAB PO PRN (00:26)
[2016-08-27] MEDS: MEROPENEM INJ 1 GM in D5W MINI-BAG PLUS 100 ML IV SCH ×3 (03:41→20:49)
[2016-08-27] MEDS: VANCOMYCIN HCL 1,000 MG, VIAL MATE ADAPTER 1 EACH in D5W 250 ML IV SCH ×2 (05:05→17:47)
[2016-08-27 06:00] VITALS: BP 128/74
[2016-08-27 06:27] LABS: BASO % 0.4 % (0.0-1.0); EOS # 0.1 K/mm3 (0.0-0.50); LARGE UNSTAINED CELL # 0.2 K/mm3 (0.0-0.4); LARGE UNSTAINED CELL % 3.4 % (0.0-4.0); LYMPH % 20.9 % (24.0-44.0); MEAN CORPUSCULAR HEMOGLOBIN 28.9 pg (27.0-33.0); MEAN CORPUSCULAR VOLUME 87.6 fl (80.0-96.0); MONO # 0.3 K/mm3 (0.0-0.8); MONO % 7.7 % (0.0-5.0); NEUTROPHILS # 2.8 K/mm3 (1.8-7.7); NEUTROPHILS % 65.6 % (36.0-66.0); PLATELET COUNT, AUTOMATED 153 k/mm3 (150-450); RED CELL DISTRIBUTION WIDTH 12.4 % (11.5-14.5); WHITE BLOOD COUNT 4.3 K/mm3 (4.0-10.0)
[2016-08-27 06:46] LABS: ALBUMIN/GLOBULIN RATIO 0.97 (1.00-1.93); ALKALINE PHOSPHATASE 60 U/L (45-117); ALT/SGPT 24 U/L (12-78); ANION GAP 5 MEQ/L (8-16); AST/SGOT 22 U/L (15-37); BILIRUBIN,TOTAL 0.3 MG/DL (0.2-1.0); BLOOD UREA NITROGEN 6 MG/DL (7-18); CALCIUM LEVEL 7.8 MG/DL (8.8-10.2); CARBON DIOXIDE LEVEL 29 MEQ/L (21-32); CHLORIDE LEVEL 103 MEQ/L (98-107); CREATININE FOR GFR 0.94 MG/DL (0.70-1.30); GLOMERULAR FILTRATION RATE > 60.0 (>42); GLUCOSE, FASTING 133 MG/DL (83-110); POTASSIUM SERUM 3.5 MEQ/L (3.5-5.1); SODIUM LEVEL 137 MEQ/L (136-145); TOTAL PROTEIN 6.1 GM/DL (6.4-8.2)
[2016-08-27] MEDS: MYCOPHENOLATE MOFETIL 250 MG CAP (J7517) PO SCH ×2 (08:50→20:50)
[2016-08-27] MEDS: MUPIROCIN 2% OINT 22 GM TUBE TOP SCH ×2 (08:50→20:51)
[2016-08-27] MEDS: ENOXAPARIN 40 MG/0.4 ML SYRINGE (J1650) SC SCH (08:50)
[2016-08-27] MEDS: MIRALAX *UNIT DOSE* 17GM PACKET PO SCH ×2 (09:00→20:57)
[2016-08-27] MEDS: ACETAMINOPHEN TAB 650MG DOSE (2X325MG) PO PRN ×2 (09:29→22:36)
[2016-08-27] MEDS ORDERED: DOCUSATE SODIUM 100 MG CAP PO PRN (10:30)
[2016-08-27] MEDS ORDERED: ALBUTEROL SULFATE 2.5 MG/0.5 ML INH NEB SOLN INH PRN (12:00)
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
[2016-08-27] MEDS: IPRATROPIUM 0.5MG/ALBUTEROL 2.5MG INH SOL UD 3ML (DUONEB)(J7620) NEB SCH ×3 (12:09→20:00)
[2016-08-27 14:00] VITALS: BP 122/62
--- NOTE | 2016-08-27 17:08 | CR ---
DATE OF CONSULTATION: 08/27/2016 Time patient was seen was this afternoon at 1520. CONSULTATION REPORT FOR: Dr. Castro ASSEMBLER RADIO AND ELECTRICAL: Dr. Chopra REASON FOR CONSULTATION: Left facial herpes zoster with cellulitis. CHIEF COMPLAINT: Left facial pain. HISTORY OF PRESENT ILLNESS: A 76-year-old male with a past medical history of myasthenia gravis, dyslipidemia, gastroesophageal reflux disease (GERD), allergic rhinitis, vitamin D deficiency, chronic obstructive pulmonary disease (COPD), who presented with left facial pain on 08/24/2016. Per patient, his symptoms started roughly 11 days ago on 08/17/2016. The patient had seen his primary care provider, Dr. Linda. Initially, the face only looked a little bit erythematous and the patient was sent home. It got worse and on the next Saturday, the patient saw Dr. Linda again and was placed on clindamycin 300 mg three times a day. However, the face became very painful. Therefore, on Saturday, the patient went to the emergency room. Emergency room gave the patient Percocet and also placed the patient on Bactrim twice a day. On , the patient's pain got worse. Therefore, patient went to the emergency room again and received a larger dose of Percocet. On Saturday, the patient started shaking and at this point, the patient' s pain was not controlled. Therefore, patient was admitted. Initially, on the day of admission, patient was diagnosed with herpes ophthalmicus and was started on acyclovir 500 mg IV every eight hours along with clindamycin IV. In addition, Dr. Evans from ophthalmology was also consulted and recommended IV antibiotics with erythromycin ointment as well as trifluridine eye droplet along with acyclovir IV and also Bactroban ointment. Patient did have a low-grade temperature more than 24 hours ago with a temperature of 100.2. He did also spike a temperature on admission with a temperature as high as 103 on 08/25/2016. Per patient, initially the face became slightly erythematous and felt like "burning", then the erythema extended and patient started to develop blisters on the left side of his face. Eventually, the entire left face became swollen and he was having problems opening his eyes. In addition, it was extremely painful. In addition, at home, the patient does take Cellcept 1000 mg twice a day for myasthenia gravis which may lead to immunosuppression and lead to increased susceptibility to infections. ALLERGIES: No known drug allergies. HOME MEDICATIONS: Include: - atorvastatin 20 mg by mouth at bedtime - clindamycin 300 mg one tablet by mouth twice a day - doxepin 25 mg one tablet by mouth at bedtime - Nexium 40 mg one tablet by mouth at bedtime - mycophenolate 1000 mg one tablet by mouth twice a day - oxycodone/acetaminophen 10/325 mg one tablet by mouth every four hours as needed - pyridostigmine 60 mg one tablet by mouth three times a day as needed - SAVision two capsules by mouth daily - Bactrim 800-160 mg one tablet by mouth twice a day PAST MEDICAL HISTORY: Includes: 1. Myasthenia gravis. 2. Dyslipidemia. 3. Gastroesophageal reflux disease (GERD). 4. Allergic rhinitis. 5. Vitamin D deficiency. 6. Chronic obstructive pulmonary disease (COPD). PAST SURGICAL HISTORY: Includes: Knee arthroplasty and hernia repair. SOCIAL HISTORY: Patient chews tobacco. Denies any smoking or recreational drug use. Denies any drinking. Patient lives with his and daughter. FAMILY HISTORY: Heart problems run in the family. REVIEW OF SYSTEMS: GENERAL: Patient denies any recent travel or any sick contacts. Denies any weight changes. HEENT: Denies any changes with vision, smell, hearing or taste. Patient does have a swollen face, more on the left side, also swollen around the eye and also swollen lips. However, no trouble swallowing or breathing. No cough. CARDIOVASCULAR: Denies any chest pain or trouble breathing. PULMONARY: Denies any trouble breathing. However, patient does have chronic obstructive pulmonary disease (COPD). GASTROINTESTINAL: Denies any abdominal pains, nausea, vomiting, diarrhea, constipation, any blood in the urine or stool. GENITOURINARY: Denies any problem with urination. MUSCULOSKELETAL: Denies any pain anywhere else. Admits to increased tremors since admission, however. ENDOCRINE: Denies any heat or cold intolerance. HEMATOLOGY/ONCOLOGY: Denies any bleeding anywhere. However, the patient does have bruising on the left side of the face which started after the patient has been admitted. PSYCHIATRIC: Denies any current anxiety or depression. NEUROLOGICAL: Denies any change of sensations. However, he does have myasthenia gravis and follows with neurology. He does have increased tremors since he has been in the hospital. PHYSICAL EXAMINATION: VITAL SIGNS: Temperature was 99.2, pulse 52, respirations 16, blood pressure 122/62, oxygen saturation 97% on room air. GENERAL: Patient is an obese, elderly male who was awake, alert and oriented times three, does not appear to be in distress, laying comfortably in bed with head elevated at 30 degrees. HEENT: Normocephalic. Patient does have significant swelling of his face, more on the left side and also swelling around his eye. His eyelids were not completely shut, however. He was able to open his eye and follow finger. Extraocular motor was intact. Mucosal membrane was moist. However, he does have swollen lips. He does also have a mild lymphadenopathy at the neck. Patient does have a layer of scab over his nose, mostly on the left side. There was also ecchymosis noted on the left face and also there appeared to be skin ulcers on the entire left face which was erythematous and swollen. CARDIOVASCULAR: Regular rate and rhythm. Distant heart sounds. Difficult to auscultate due to increased anteroposterior (AP) diameter. LUNGS: Clear to auscultation bilaterally. Increased AP diameter. ABDOMEN: Obese, positive bowel sounds, soft, nontender, nondistended. No peritoneal signs. EXTREMITIES: No edema, clubbing, or cyanosis. SKIN: Warm and dry. NEUROLOGIC: Cranial nerves II-XII intact. Patient, however, does have increased tremor which appears to be intentional. LABORATORY DATA: WBC 4.3, hemoglobin 13.2, hematocrit 40.1 with a platelet count of 153 and MCV of 57.6. Sodium 137, potassium 3.5, chloride 103, bicarbonate 29, BUN 6, creatinine 0.94, GFR greater than 60, fasting glucose 133, calcium 7.8, total bilirubin 0.3, AST 22, ALT 24, alkaline phosphatase 60, CRP was elevated at 1.63 compared to the day prior which was 0.92, total protein was 6.1, albumin 3 which was low. The patient's blood culture times two are pending and shows no growth after 24 hours. Wound culture from three days ago is pending. Blood culture times two from four days ago shows no growth after four days. Herpes virus DNA PCR is currently pending. Patient had a maxillofacial CT on 08/26/2016 which shows soft tissue thickening along the buccal surface of left maxilla and body of mandible consistent with a small phlegmon, edema is persistent of overlying subcutaneous tissue that has increased compared to previous study. ASSESSMENT AND PLAN: This is a 76-year-old male who presented with herpes ophthalmicus as well as superimposed cellulitis of the left face with immunosuppression from Cellcept. According to the patient and his , the swelling and pain appears to be improving. We will continue patient with trifluridine eye droplet every two hours and also acyclovir 870 mg IV every eight hours, Bactroban ointment topically twice a day, erythromycin ointment every four hours. Continue Merrem and Vancomycin. Dr. Portillo from neurology has been contacted and recommended to lower patient's Cellcept from 1000 mg bid to 500 mg bid and should see him after discharge for dose adjustment. Patient should use pyridostigmine for Myasthenia Gravis flare ups. Nasal culture also has been ordered due to suspicions for MRSA. Continue pain control. My preceptor for this patient encounter was Dr. Arturo Chopra. The preceptor was physically present in the building during the encounter and was fully available as needed. All aspects of the patient interview, examination, medical decision making process, and medical care plan development were reviewed and approved by the preceptor. The preceptor is aware and concurs with the plan as stated in the body of this note and will attest to such by his/her co-signature. VILMA
[2016-08-27] MEDS: AMITRIPTYLINE 10 MG TAB PO SCH (20:50)
[2016-08-27] MEDS: PANTOPRAZOLE 40MG TAB (PROTONIX) PO SCH (20:50)
[2016-08-27] MEDS: ATORVASTATIN 20 MG TAB PO SCH (20:50)
[2016-08-27] MEDS: DOXEPIN 25 MG CAP PO SCH (20:50)
[2016-08-27 22:00] VITALS: BP 124/70
[2016-08-28] MEDS: TRIFLURIDINE 1% OPHTH SOLN 7.5 ML OS SCH ×12 (01:00→22:19)
[2016-08-28] MEDS: PERCOCET 5MG/325MG TAB PO PRN ×2 (03:02→10:04)
[2016-08-28] MEDS: MEROPENEM INJ 1 GM in D5W MINI-BAG PLUS 100 ML IV SCH ×2 (03:03→11:29)
[2016-08-28] MEDS: ERYTHROMYCIN OPHTH OINT OS SCH ×7 (04:00→23:08)
[2016-08-28 05:50] LABS: BASO % 0.6 % (0.0-1.0); EOS # 0.1 K/mm3 (0.0-0.50); EOS % 2.3 % (0.0-3.0); LARGE UNSTAINED CELL # 0.1 K/mm3 (0.0-0.4); LARGE UNSTAINED CELL % 3.4 % (0.0-4.0); LYMPH # 1.3 K/mm3 (1.5-4.5); LYMPH % 31.1 % (24.0-44.0); MEAN CORPUSCULAR HEMOGLOBIN 28.5 pg (27.0-33.0); MEAN CORPUSCULAR HGB CONC 32.9 g/dl (32.0-36.5); MEAN CORPUSCULAR VOLUME 86.7 fl (80.0-96.0); MONO # 0.3 K/mm3 (0.0-0.8); MONO % 6.5 % (0.0-5.0); NEUTROPHILS # 2.2 K/mm3 (1.8-7.7); NEUTROPHILS % 56.1 % (36.0-66.0); PLATELET COUNT, AUTOMATED 152 k/mm3 (150-450); RED CELL DISTRIBUTION WIDTH 12.2 % (11.5-14.5); WHITE BLOOD COUNT 3.9 K/mm3 (4.0-10.0)
[2016-08-28 06:00] VITALS: BP 132/70
[2016-08-28 06:12] LABS: ALBUMIN 2.8 GM/DL (3.2-5.2); ALKALINE PHOSPHATASE 55 U/L (45-117); ALT/SGPT 27 U/L (12-78); ANION GAP 7 MEQ/L (8-16); AST/SGOT 24 U/L (15-37); BILIRUBIN,TOTAL 0.3 MG/DL (0.2-1.0); BLOOD UREA NITROGEN 5 MG/DL (7-18); CALCIUM LEVEL 7.6 MG/DL (8.8-10.2); CARBON DIOXIDE LEVEL 28 MEQ/L (21-32); CHLORIDE LEVEL 105 MEQ/L (98-107); CREATININE FOR GFR 0.81 MG/DL (0.70-1.30); GLOMERULAR FILTRATION RATE > 60.0 (>42); GLUCOSE, FASTING 111 MG/DL (83-110); POTASSIUM SERUM 3.3 MEQ/L (3.5-5.1); SODIUM LEVEL 140 MEQ/L (136-145); TOTAL PROTEIN 5.6 GM/DL (6.4-8.2)
[2016-08-28] MEDS: D5W/0.9% SODIUM CHLORIDE 1,000 ML IV SCH ×2 (06:15→13:31)
[2016-08-28] MEDS: VANCOMYCIN HCL 1,000 MG, VIAL MATE ADAPTER 1 EACH in D5W 250 ML IV SCH (06:18)
[2016-08-28] MEDS: IPRATROPIUM 0.5MG/ALBUTEROL 2.5MG INH SOL UD 3ML (DUONEB)(J7620) NEB SCH ×4 (08:00→20:00)
[2016-08-28] MEDS: ENOXAPARIN 40 MG/0.4 ML SYRINGE (J1650) SC SCH (08:29)
[2016-08-28] MEDS: MYCOPHENOLATE MOFETIL 250 MG CAP (J7517) PO SCH ×2 (08:30→20:44)
[2016-08-28] MEDS: MIRALAX *UNIT DOSE* 17GM PACKET PO SCH ×2 (08:30→20:45)
[2016-08-28] MEDS: MUPIROCIN 2% OINT 22 GM TUBE TOP SCH ×2 (08:31→20:45)
[2016-08-28] MEDS: ACYCLOVIR IV SCH ×2 (08:32→15:18)
[2016-08-28] MEDS: NS IV SCH ×2 (08:32→15:18)
[2016-08-28] MEDS ORDERED: POTASSIUM CHLORIDE 10 MEQ SR TABLET PO ONE (08:45)
--- NOTE | 2016-08-28 09:14 | PHACANCOPD ---
PHARMACY VANCOMYCIN DOSING Pt Demographics Demographics Patient Age:76 , Weight:88.400 , Gender: male Adjusted Body Weight Date: 08/26/16, Adjusted Body Weight: [NA] Kg Events Past 24 Hours Events Past 24 Hours: NO: Change in CrCl, Dialysis, Diuretic Therapy, Elevation in WBC, Fever, Other, Pending Diagnostics, Pending Procedures Vancomycin Vancomycin indication: SEPSIS Vancomycin Target Ranges: 15-20 mcg/ml Vancomycin Load Y/N: Yes Load Dose Date Time Vancomycin Load Dose: 1000mg Date: 08/26 Time: ~10am Vancomycin Dose Date: 08/28/16. Current Vancomycin Dose: [1500MG IV Q12H @ 1600] Date: 08/26/16. Current Vancomycin Dose: [1g q12h @18] Intermittent Dosing?: No Labs Labs Item Value Date Time White Blood Count 5.0 K/mm3 08/26/16 0532 White Blood Count 4.3 K/mm3 08/27/16 0606 White Blood Count 3.9 K/mm3 L 08/28/16 0525 Creatinine 0.94 MG/DL 08/27/16 0606 Creatinine 0.81 MG/DL 08/28/16 0525 Vancomycin Level Trough 10.2 UG/ML 08/28/16 0525 Micro Microbiology 08/26/16 Blood Culture - Preliminary, Resulted No growth after 24 hours . All specim... 08/26/16 Blood Culture - Preliminary, Resulted No growth after 24 hours . All specim... 08/24/16 Blood Culture - Preliminary, Resulted No Growth after 72 hours. All specime... 08/24/16 Blood Culture - Preliminary, Resulted No Growth after 72 hours. All specime... 08/27/16 Eye/Ear/Nose/Throat Culture, Received Pending 08/25/16 Wound Culture - Final, Complete Staphylococcus Sp Coag Neg 08/24/16 Herpes Virus DNA (PCR), Received Pending Creatinine Clearance Date:08/26/16. Creatinine Clearance: [77 ml/min]. Pending Labs VANCO TROUGH 08/29 @ 1500 Assessment and Plan Maintaining Current Dose?: No Reason for dose change: Trough too low Pharmacist Note Pharmacist Note Date: 08/28/16. Pharmacist note: Patients trough returned @ 10.2 after 1 loading dose and 3 scheduled doses. Patient should be close to steady state so the dose was changed to 1500mg IV Q12 hours starting @ 1600 to obtain the desired trough of 15-20. Trough is scheduled for 08/29 @ 1500. Continue to monitor renal function and adjust as needed. Date: 08/26/16. Pharmacist note: pt was admitted on 08/24 for facial/ophthalmic cellulitis secondary to herpes zoster. He was treated with clindamycin and Bactrim DS as an outpatient. During admission, he was started on acyclovir IV and Clindamycin 600mg IV q8h. After 24 hours, clindamycin was switched to meropenem. Vancomycin has been added today. Pt has not been on vancomycin at our facility in the past and does not have an apparent Hx of MRSA. Pt's medical Hx is significant for myasthenia gravis and is on immunosuppressive therapy ( cellcept). Pt has been febrile x24 hours, SCr is at baseline and is stable, cultures are pending. I have put in a vancomycin IV 1g dose for this morning and started 1g q12h dosing this evening. We will continue to monitor and order a trough as necessary. DOROTEO RICHTER PHARMACY Aug 28, 2016 09:14
--- NOTE | 2016-08-28 12:39 | IPN ---
DATE: 08/28/2016 SUBJECTIVE: The patient seen and examined in the room today. The patient stated his left face swelling and discomfort has been improving. He also noted the facial lesion has also been improving. He denies any overnight events. He had good oral intake. OBJECTIVE: VITAL SIGNS: Temperature 99.3, pulse 86, respirations 18, blood pressure 132/70, pulse oximetry 95% in room air. GENERAL: No sign of acute distress. Alert and oriented times three. HEENT: Still has erythema mainly at the left lower face. There are multiple scabs covering mainly in the nose area and near the corner just below the left eye. No active drainage. No purulent discharge noted. No foul smelling. Tender to palpation. CARDIOVASCULAR: Positive, S1, S2, regular rhythm. LUNGS: No wheezes. No rhonchi. ABDOMEN: Soft. Nontender. Nondistended. Bowel sounds present. No rebound. No guarding. EXTREMITIES: No edema. No cyanosis. LABORATORY DATA: WBC 3.9, hemoglobin 13, hematocrit 39.5, and platelet count 152. Sodium 140, potassium 3.3, chloride 105, carbon dioxide 28, BUN 5, creatinine 0.81, GFR greater than 60, fasting glucose 111, calcium 7.6, total bilirubin 0.3, AST 24, ALT 27, alkaline phosphatase 55, C-reactive protein 1.04, total protein 5.6, albumin 2.9. ASSESSMENT AND PLAN: 1. Left facial herpes ophthalmicus. 2. Superimposed left facial cellulitis. 3. 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 4. Myasthenia gravis immunosuppression therapy. 5. Hyperlipidemia. 6. Gastroesophageal reflux disease. The patient is continued on acyclovir. The patient is on amitriptyline for the pain. Infectious disease, Dr. Chopra, has been consulted. Currently the patient has vancomycin and meropenem for the superimposed facial cellulitis. The patient is also on Bacid. The patient is also using erythromycin eye drops. The patient is on Lovenox for deep vein thrombosis prophylaxis.
[2016-08-28 14:00] VITALS: BP_SYST 140; BP_SYST 150; BP_DIAS 76; BP_DIAS 98
[2016-08-28] MEDS: ACETAMINOPHEN TAB 650MG DOSE (2X325MG) PO PRN ×2 (15:19→22:18)
[2016-08-28] MEDS: VANCOMYCIN HCL 1,500 MG in D5W 500 ML IV SCH (16:39)
[2016-08-28] MEDS: LACTOBACILLUS ACIDOPHILUS CAP (BACID) PO SCH ×2 (16:40→20:44)
--- NOTE | 2016-08-28 16:44 | IPN ---
DATE: 08/28/2016 Time patient was seen was around 1515 hours. The patient was seen and examined at the bedside. No acute events overnight. The patient is feeling much better today, stated that he is able to put his dentures in due to the swelling has reduced. Patient also reports less swelling around the eye; however, he stated that his face was not painful. Denies any fever or chills. However, he did have an elevated temperature around 2:00 p.m., which was 102. He denies any chest pain, trouble breathing, abdominal pain, nausea, vomiting, diarrhea, constipation or any other current new complaints. PHYSICAL EXAMINATION: VITAL SIGNS: Temperature was 102, pulse 90, respirations 18, blood pressure 150/76, oxygen was saturating at 95% on room air. GENERAL: The patient is a pleasant elderly male who was alert, awake, oriented times three, does not appear to be in distress, resting comfortably in bed with the head elevated at a 45-degree angle. HEENT: Normocephalic. The patient does have significant blisters on the left side, which have scabbed over. Patient no longer has this dry skin on patient's nose. The lips were less swollen and periorbital edema has reduced as well. There was less lymphadenopathy around the neck. CARDIOVASCULAR: Regular rate and rhythm. S1, S2. No murmurs, rubs or gallops. Also, distant heart sounds due to increased AP diameter from chronic obstructive pulmonary disease (COPD). LUNGS: Clear to auscultation bilaterally. No wheezing, rales, or rhonchi. ABDOMEN: Positive bowel sounds. Soft, nontender, nondistended. No peritoneal signs. No ecchymosis. EXTREMITIES: No edema, clubbing or cyanosis. SKIN: Warm and dry. NEUROLOGIC: Crania nerves II-XII intact. No focal neurologic deficits. LABORATORY DATA: WBC 3.9, hemoglobin 13, hematocrit 39.5 with a platelet count of 152 and MCV of 86.7. Sodium 140, potassium 3.3, chloride 105, bicarbonate 28, BUN 5, creatinine 0.81, GFR greater than 60, fasting glucose 111, calcium 7.6, CRP has come down from 1.63 yesterday to today's 1.04. Varicella zoster virus DNA, PCR is currently pending. Patient's ENT nostril culture is currently pending. Blood culture times two shows negative after 2 days. Wound culture from 3 days ago does show methicillin-resistant Staphylococcus aureus (MRSA); however, the quality of the growth was only a few. ASSESSMENT AND PLAN: A 76-year-old male, presented with herpes ophthalmicus as well as superimposed cellulitis on the left face with immunosuppression from cellulitis, also a developing phlegmon on the CT of the head. Patient did show clinical improvement with face less swollen, the periorbital edema has reduced. The patient's CRP is improving. The patient's acyclovir has been discontinued today and switched the patient to oral valacyclovir 1000 mg three times a day for 7 days. Otherwise, continue current treatment with Bactroban, erythromycin, also vancomycin. Meropenem was discontinued yesterday. Continue to give the patient Cellcept at half of the normal dose and will continue to followup with cultures. The patient has been discussed with attending doctor, Dr. Chopra. My preceptor for this patient encounter was Dr. Chopra. . The preceptor was physically present in the building during the encounter and was fully available. As needed, all aspects of the patient interview, examination, medical decision making process, and medical care plan development were reviewed and approved by the preceptor. The preceptor is aware and concurs with the plan as stated in the body of this note and will attest to such by his/her co-signature.
[2016-08-28] MEDS: ATORVASTATIN 20 MG TAB PO SCH (20:44)
[2016-08-28] MEDS: DOXEPIN 25 MG CAP PO SCH (20:44)
[2016-08-28] MEDS: PANTOPRAZOLE 40MG TAB (PROTONIX) PO SCH (20:44)
[2016-08-28] MEDS: AMITRIPTYLINE 10 MG TAB PO SCH (20:44)
[2016-08-28] MEDS: valACYclovir HCL 500 MG TAB PO SCH (20:44)
[2016-08-28 22:00] VITALS: BP 145/70
[2016-08-29] MEDS: TRIFLURIDINE 1% OPHTH SOLN 7.5 ML OS SCH ×12 (00:01→22:34)
[2016-08-29] MEDS: D5W/0.9% SODIUM CHLORIDE 1,000 ML IV SCH (02:15)
[2016-08-29] MEDS: VANCOMYCIN HCL 1,500 MG in D5W 500 ML IV SCH ×2 (03:51→16:16)
[2016-08-29] MEDS: ERYTHROMYCIN OPHTH OINT OS SCH ×6 (03:59→23:56)
[2016-08-29] MEDS: ACETAMINOPHEN TAB 650MG DOSE (2X325MG) PO PRN ×2 (05:48→13:53)
[2016-08-29 06:00] VITALS: BP 120/65
[2016-08-29 06:28] LABS: BASO % 0.7 % (0.0-1.0); EOS # 0.1 K/mm3 (0.0-0.50); EOS % 2.4 % (0.0-3.0); LARGE UNSTAINED CELL # 0.1 K/mm3 (0.0-0.4); LARGE UNSTAINED CELL % 2.3 % (0.0-4.0); LYMPH # 1.2 K/mm3 (1.5-4.5); LYMPH % 20.5 % (24.0-44.0); MEAN CORPUSCULAR HEMOGLOBIN 29.1 pg (27.0-33.0); MEAN CORPUSCULAR VOLUME 88.2 fl (80.0-96.0); MONO # 0.3 K/mm3 (0.0-0.8); MONO % 5.8 % (0.0-5.0); NEUTROPHILS # 3.6 K/mm3 (1.8-7.7); NEUTROPHILS % 68.3 % (36.0-66.0); PLATELET COUNT, AUTOMATED 159 k/mm3 (150-450); RED CELL DISTRIBUTION WIDTH 12.2 % (11.5-14.5); WHITE BLOOD COUNT 5.3 K/mm3 (4.0-10.0)
[2016-08-29 06:51] LABS: ALBUMIN 3.2 GM/DL (3.2-5.2); ALKALINE PHOSPHATASE 54 U/L (45-117); ALT/SGPT 31 U/L (12-78); ANION GAP 6 MEQ/L (8-16); AST/SGOT 30 U/L (15-37); BILIRUBIN,TOTAL 0.6 MG/DL (0.2-1.0); BLOOD UREA NITROGEN 6 MG/DL (7-18); CALCIUM LEVEL 8.4 MG/DL (8.8-10.2); CARBON DIOXIDE LEVEL 31 MEQ/L (21-32); CHLORIDE LEVEL 100 MEQ/L (98-107); CREATININE FOR GFR 0.94 MG/DL (0.70-1.30); GLOMERULAR FILTRATION RATE > 60.0 (>42); GLUCOSE, FASTING 101 MG/DL (83-110); POTASSIUM SERUM 4.2 MEQ/L (3.5-5.1); SODIUM LEVEL 137 MEQ/L (136-145); TOTAL PROTEIN 6.4 GM/DL (6.4-8.2)
[2016-08-29] MEDS: IPRATROPIUM 0.5MG/ALBUTEROL 2.5MG INH SOL UD 3ML (DUONEB)(J7620) NEB SCH ×3 (08:00→18:39)
[2016-08-29] MEDS: MUPIROCIN 2% OINT 22 GM TUBE TOP SCH ×2 (09:02→20:22)
[2016-08-29] MEDS: valACYclovir HCL 500 MG TAB PO SCH ×3 (09:02→20:21)
[2016-08-29] MEDS: ENOXAPARIN 40 MG/0.4 ML SYRINGE (J1650) SC SCH (09:02)
[2016-08-29] MEDS: MIRALAX *UNIT DOSE* 17GM PACKET PO SCH ×2 (09:02→20:22)
[2016-08-29] MEDS: LACTOBACILLUS ACIDOPHILUS CAP (BACID) PO SCH ×3 (09:02→20:21)
[2016-08-29] MEDS: MYCOPHENOLATE MOFETIL 250 MG CAP (J7517) PO SCH ×2 (09:03→20:22)
--- NOTE | 2016-08-29 11:24 | IPN ---
DATE OF SERVICE: 08/29/2016 SUBJECTIVE: The patient seen and examined in the room. The patient stated he does not have any pain at the left face for the past 48 hours. The patient also feels that the area of the infection has been decreased in size. The patient does not complain about decreased visual acuity bilaterally. However, the patient continues to have intermittent fevers. Yesterday around 10 p.m., the patient had a temperature of 101.6, which was measured orally. Even at 6 o'clock in the morning, the patient had a temperature of 102.2. OBJECTIVE: VITAL SIGNS: Temperature 102.2, pulse 92, respirations 16, blood pressure is 120/65, pulse oximetry 93% in room air. GENERAL: No sign of acute distress. The patient is alert and awake and oriented. HEENT: There is still erythema located at the left side of the face about the left corner of the mouth. Multiple scabs forming near the left side of nose edge. No active discharge or drainage noted. No foul smelling. No tenderness to palpation. CARDIOVASCULAR: Positive S1, S2, regular rate. LUNGS: Clear to auscultation bilaterally. No wheezes. No rhonchi. ABDOMEN: Soft. Nontender. Nondistended. Bowel sounds present. No rebound. No guarding. EXTREMITIES: No edema. No sign of cyanosis. LABORATORY DATA: WBC is 5.3, hemoglobin 12.7, hematocrit 38.6, and platelet count 159. Sodium 137, potassium 4.2, chloride 100, carbon dioxide 31, BUN 6, creatinine 0.94, GFR greater than 60, fasting glucose 101, calcium is 8.4, total bilirubin 0.6, AST is 31, ALT is 31, alkaline phosphatase is 54, C-reactive protein 0.58, total protein 6.4, albumin 3.2. ASSESSMENT AND PLAN: 1. Left facial herpes ophthalmicus. 2. Superimposed left facial cellulitis. 3. 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 4. Myasthenia gravis immunosuppression therapy. 5. Hyperlipidemia. 6. Gastroesophageal reflux disease. The patient has been switched to valacyclovir yesterday. The patient's superimposed cellulitis improving. The patient is on erythromycin eyedrops. The patient is on intravenous (IV) vancomycin. Meropenem was discontinued yesterday. The patient also on Bacid. We appreciate infectious disease specialist's assistance. The patient continues taking Cellcept for his myasthenia gravis. The patient is taking Lovenox for deep venous thrombosis (DVT) prophylaxis.
[2016-08-29 14:00] VITALS: BP 138/52
--- NOTE | 2016-08-29 17:09 | REP ---
CHEST, TWO VIEWS: REASON: Pyrexia and wheezing. COMPARISON: Multiple, latest 05/18/2013. Mild chronic fibrotic changes again noted status quo with lung base predominance. There is a subtle curvilinear density in the right middle lobe likely subsegmental atelectatic change. No definite patchy opacities or pleural effusions have developed. The heart is not enlarged and the osseous structures are stable. IMPRESSION: Likely minimal right middle lobe subsegmental atelectatic changes. Signed by Tra Esquivel DO 08/30/2016 10:52 A
--- NOTE | 2016-08-29 18:20 | IPN ---
DATE: 08/29/2016 Mother still is doing much better. He states the swelling has improved. He has no pain. No headache. No nausea, vomiting or diarrhea. No abdominal pain. The patient is frustrated because of his persistent fever in spite of his clinical improvement. He would like to go home. LABORATORY DATA: White count is 5.3, hemoglobin 12.7, hematocrit 38.6, platelets 159, 68% neutrophils, 20% lymphocytes, 5% monocytes. Sodium 137, potassium 4.2, chloride 100, bicarbonate 31, BUN 6, creatinine 0.9, glucose 101, calcium 8.4, AST 30, ALT 31, CRP 0.58 down from 1.6, total protein 6.4. Nasal culture done was negative. The culture from the face that had staph coag negative only. Blood cultures were all negative times four sets. Herpes PCR was negative for HSV I and HSV II. On physical exam temperature 102.2, pulse 92, respirations 18, blood pressure 138/52, Oxygen saturation 94% on room air. Heart normal S1-S2 with no murmurs. Lungs few exterior wheezes bilaterally. Abdomen is soft, nontender. Extremities no edema. Face has crusting with decrease edema. Decreased swelling. No tenderness. There is mild periorbital edema on the right side of the, otherwise everything is on the left side. IMPRESSION: 1. Herpes zoster ophthalmicus on intravenous (IV) acyclovir for 3 days then switched to by mouth Valtrex. 2. Superimposed cellulitis on IV vancomycin previously also on meropenem which was discontinued after 3 days. Cultures of nasal passages and skin were negative except for staph coag negative. 3. Persistent fever which is somewhat confusing to me as there is no obvious source of fever and clinically the patient is improving. PLAN: Will obtain chest x-ray, PA and lateral as he is definitely wheezing. Hopefully the patient could be discharged home tomorrow. The fever could also be related to drug fever.
[2016-08-29] MEDS: AMITRIPTYLINE 10 MG TAB PO SCH (20:21)
[2016-08-29] MEDS: ATORVASTATIN 20 MG TAB PO SCH (20:21)
[2016-08-29] MEDS: PANTOPRAZOLE 40MG TAB (PROTONIX) PO SCH (20:22)
[2016-08-29] MEDS: DOXEPIN 25 MG CAP PO SCH (20:22)
[2016-08-29] MEDS: PERCOCET 5MG/325MG TAB PO PRN (20:54)
[2016-08-29 22:00] VITALS: BP 146/72
[2016-08-30] MEDS: TRIFLURIDINE 1% OPHTH SOLN 7.5 ML OS SCH ×5 (02:10→15:03)
[2016-08-30] MEDS: VANCOMYCIN HCL 1,500 MG in D5W 500 ML IV SCH (04:08)
[2016-08-30] MEDS: ERYTHROMYCIN OPHTH OINT OS SCH ×4 (04:08→15:03)
[2016-08-30 06:00] VITALS: BP 122/58
[2016-08-30 06:01] LABS: BASO % 0.4 % (0.0-1.0); EOS # 0.2 K/mm3 (0.0-0.50); EOS % 5.7 % (0.0-3.0); LARGE UNSTAINED CELL # 0.1 K/mm3 (0.0-0.4); LARGE UNSTAINED CELL % 1.9 % (0.0-4.0); LYMPH # 1.3 K/mm3 (1.5-4.5); LYMPH % 31.2 % (24.0-44.0); MEAN CORPUSCULAR HEMOGLOBIN 29.5 pg (27.0-33.0); MEAN CORPUSCULAR HGB CONC 34.2 g/dl (32.0-36.5); MEAN CORPUSCULAR VOLUME 86.1 fl (80.0-96.0); MONO # 0.3 K/mm3 (0.0-0.8); MONO % 6.5 % (0.0-5.0); NEUTROPHILS # 2.1 K/mm3 (1.8-7.7); NEUTROPHILS % 54.3 % (36.0-66.0); PLATELET COUNT, AUTOMATED 162 k/mm3 (150-450); RED CELL DISTRIBUTION WIDTH 12.2 % (11.5-14.5); WHITE BLOOD COUNT 3.9 K/mm3 (4.0-10.0)
[2016-08-30 06:25] LABS: ALBUMIN 2.8 GM/DL (3.2-5.2); ALBUMIN/GLOBULIN RATIO 0.93 (1.00-1.93); ALKALINE PHOSPHATASE 53 U/L (45-117); ALT/SGPT 31 U/L (12-78); AST/SGOT 29 U/L (15-37); BILIRUBIN,TOTAL 0.7 MG/DL (0.2-1.0); BLOOD UREA NITROGEN 8 MG/DL (7-18); CALCIUM LEVEL 7.8 MG/DL (8.8-10.2); CARBON DIOXIDE LEVEL 28 MEQ/L (21-32); CHLORIDE LEVEL 102 MEQ/L (98-107); CREATININE FOR GFR 0.76 MG/DL (0.70-1.30); GLOMERULAR FILTRATION RATE > 60.0 (>42); GLUCOSE, FASTING 124 MG/DL (83-110); TOTAL PROTEIN 5.8 GM/DL (6.4-8.2)
[2016-08-30 06:31] LABS: ANION GAP 7 MEQ/L (8-16); SODIUM LEVEL 137 MEQ/L (136-145)
[2016-08-30 06:34] LABS: POTASSIUM SERUM 3.1 MEQ/L (3.5-5.1)
[2016-08-30] MEDS: IPRATROPIUM 0.5MG/ALBUTEROL 2.5MG INH SOL UD 3ML (DUONEB)(J7620) NEB SCH ×3 (07:46→16:00)
[2016-08-30] MEDS: valACYclovir HCL 500 MG TAB PO SCH (09:05)
[2016-08-30] MEDS: MYCOPHENOLATE MOFETIL 250 MG CAP (J7517) PO SCH (09:05)
[2016-08-30] MEDS: LACTOBACILLUS ACIDOPHILUS CAP (BACID) PO SCH (09:05)
[2016-08-30] MEDS: MIRALAX *UNIT DOSE* 17GM PACKET PO SCH (09:06)
[2016-08-30] MEDS: MUPIROCIN 2% OINT 22 GM TUBE TOP SCH (09:06)
[2016-08-30] MEDS: ENOXAPARIN 40 MG/0.4 ML SYRINGE (J1650) SC SCH (09:06)
[2016-08-30] MEDS ORDERED: POTASSIUM CHLORIDE 10 MEQ SR TABLET PO ONE (10:30)
[2016-08-30 14:00] VITALS: BP 131/58
[2016-08-30] MEDS ORDERED: AMIT10TA PO (15:29)
[2016-08-30] MEDS ORDERED: VALA500T PO (15:29)
[2016-08-30] MEDS ORDERED: CELL250C PO (15:29)
[2016-08-30] MEDS ORDERED: VANCOMYCIN HCL 1,000 MG, VIAL MATE ADAPTER 1 EACH in D5W 250 ML IV SCH (16:00)
--- NOTE | 2016-08-30 17:53 | IPN ---
DATE: 08/30/2016 Mr. Roque is doing very well. He has had no fever today. He is anxious to go home. All the lesions on his left face are dry and scabbed over. There is still surrounding erythema. No nausea, vomiting or diarrhea. No abdominal pain. IMPRESSION: 1. Left zoster ophthalmicus, left facial zoster ophthalmicus with superimposed infection. The patient has received already 7 days of antiviral, currently on oral Valtrex 1 gram by mouth three times a day, tolerating well. 2. Superimposed infection. On intravenous (IV) vancomycin. The patient has Bactrim double-strength at home prescription that he was given from the emergency room that he has not used. He will take that for 7 days. 3. Immunosuppression, on mycophenolate for myasthenia gravis. His dose of that has been reduced from 1000 mg twice a day to 500 mg twice a day as he was having refractory fevers. The patient is currently asymptomatic from a myasthenia standpoint. PLAN: Continue on reduced dose of mycophenolate 500 mg twice a day for 2 weeks. Bactrim DS one tablet by mouth twice a day for one week and Valtrex 1 gram by mouth three times a day for one week. The patient will follow up with infectious disease in 7-10 days.
--- NOTE | 2016-08-30 21:40 | DSES ---
DATE OF ADMISSION: 08/24/2016 DATE OF DISCHARGE: 08/30/2016 CONSULTING PHYSICIANS: Infectious disease specialist, Dr. Arturo Chopra. PROCEDURES: None. COMPLICATIONS: None. ADMISSION/DISCHARGE DIAGNOSES: 1. Herpes zoster of the ophthalmicus. 2. Superimposed cellulitis. 3. Persistent fever. 4. Myasthenia gravis, on immunosuppression therapy. 5. 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 6. Hyperlipidemia. 7. Gastroesophageal reflux disease. HOSPITALIZATION COURSE: The patient is a 76-year-old male presented to [facility] August 24, 2016 for worsening left-sided facial pain and lesions. The patient was determined to have herpes zoster of ophthalmicus. The patient was started on acyclovir and the patient started on antibiotics for superimposed cellulitis. The case was discussed with through operator, Dr. Evans. The patient also started on amitriptyline for the pain. Later due to concern for possible burn, Dr. Mccrary from burn center in [facility] was contacted and burn center director lead teacher both feel it is more likely infectious process instead of a burn. The patient is recommended to continue with medical management, antibiotics and antiviral regimen. Later, the infectious disease specialist, Dr. Chopra was consulted and the patient's medication such as mycophenolate was also adjusted. Was admitted for medical management, the patient's left facial lesion has been improving continuously, however, the patient has continued to have persistent intermittent fevers. On August 30, 2016 the patient determined medically stable for discharge with the recommendation to follow with primary care provider within one week and patient should follow with Dr. Chopra in one week. The patient should continue Valtrex for one week and the patient should continue taking Bactrim for one week. OBJECTIVE: Vital signs: Temperature is 99.3, pulse is 89, respirations 17, blood pressure 131/58, pulse oximetry 95% on room air. LABORATORY DATA: WBC 3.9, hemoglobin 12.5, hematocrit 36.5. Platelet count is 162. Sodium is 137, potassium 3.1, chloride is 102. Carbon dioxide 28, BUN 8, creatinine 0.76. GFR greater than 60, fasting glucose 124. Calcium 7.8, total bilirubin 0.7. AST 29, ALT 31, alkaline phosphatase is 53. C-reactive protein is 0.31. Total protein is 5.8. Albumin is 2.8. Varicella-zoster virus DNA PCR is positive. Microbiology: The left facial wound culture shows staphylococcus, coag negative. Blood cultures negative after 5 days. Sample collected on August 24, 2016 times two sets. Blood culture obtained August 27, 2015, preliminary results show no growth after [address] of maxillofacial with contrast shows soft tissue thickening along the buccal surface of the left maxillary and the body of the mandible consistent with a small phlegmon. Edema is present of the overlying subcutaneous tissue that has increased compared to the previous study. Two view chest x-ray showed minimal right middle lobe subsegmental atelectatic changes. DISCHARGE MEDICATIONS: - amitriptyline 10 mg by mouth at bedtime for 10 days - CellCept 500 mg by mouth twice a day for 10 days - Valtrex 1000 mg by mouth three times a day for 7 days - Bactrim DS 1 tablet by mouth twice a day for 7 days - atorvastatin 40 mg by mouth at bedtime - doxepin 25 mg by mouth at bedtime - Nexium 40 mg by mouth at bedtime - Percocet 10/325 1 tablet by mouth 4 hours as needed - pyridostigmine 60 mg by mouth three times a day as needed DISCHARGE INSTRUCTIONS: Discontinue lines. Discharge home. Activity as tolerated. Diet as tolerated. The patient should follow with primary care provider, Dr. Vikram Linda in one week. The patient should follow with infectious disease specialist, Dr. Arturo Chopra for one week. The patient is recommended to continue taking valacyclovir four more weeks. The patient should continue using Bactrim for one more week. DISCHARGE CONDITION: Stable. DISCHARGE TIME: Greater than 30 minutes.
== END 2016-08-30 17:16 | disposition home or self-care (01) | DRG 125 ==
LOC: EDBD 09:24 → M ED 10:02 → M ED INP 13:29 → M MSPAV 15:25
PROVIDERS: ADMIT Internal Medicine; ATTEND Internal Medicine
DX: B02.30 Zoster ocular disease, unspecified (principal); L03.211 Cellulitis of face; G70.00 Myasthenia gravis without (acute) exacerbation; E78.5 Hyperlipidemia, unspecified; K21.9 Gastro-esophageal reflux disease without esophagitis; Z79.899 Other long term (current) drug therapy; E55.9 Vitamin D deficiency, unspecified; J30.9 Allergic rhinitis, unspecified; J44.9 Chronic obstructive pulmonary disease, unspecified

== ENCOUNTER 2016-10-04 09:08 | Emergency (ER) | payer MEDICARE, BC ==
[~2016-10-04 09:08] MED LIST changes: +AMIT10TA PO; +CELL250C PO; +CLEO300C2 PO; +DOXE25CA PO; +OXYC1TAB16 PO; +VALA500T PO
[2016-10-04] MEDS ORDERED: GABA-283 PO (09:24)
[2016-10-04] MEDS ORDERED: PERCOCET 5MG/325MG TAB PO ONE (09:30)
[2016-10-04 09:55] LABS: ANION GAP 8 MEQ/L (8-16); AST/SGOT 16 U/L (15-37); BLOOD UREA NITROGEN 13 MG/DL (7-18); CALCIUM LEVEL 9.2 MG/DL (8.8-10.2); CARBON DIOXIDE LEVEL 30 MEQ/L (21-32); CHLORIDE LEVEL 102 MEQ/L (98-107); CREATININE FOR GFR 0.97 MG/DL (0.70-1.30); GLOMERULAR FILTRATION RATE > 60.0 (>42); GLUCOSE, FASTING 115 MG/DL (83-110); POTASSIUM SERUM 4.3 MEQ/L (3.5-5.1); SODIUM LEVEL 140 MEQ/L (136-145)
[2016-10-04 09:56] LABS: ALBUMIN 3.9 GM/DL (3.2-5.2); ALBUMIN/GLOBULIN RATIO 1.26 (1.00-1.93); ALKALINE PHOSPHATASE 62 U/L (45-117); ALT/SGPT 28 U/L (12-78); BILIRUBIN,DIRECT 0.2 MG/DL (0.0-0.2); BILIRUBIN,TOTAL 0.5 MG/DL (0.2-1.0)
[2016-10-04 10:13] LABS: BASO % 0.5 % (0.0-1.0); EOS # 0.2 K/mm3 (0.0-0.50); EOS % 2.7 % (0.0-3.0); LARGE UNSTAINED CELL # 0.1 K/mm3 (0.0-0.4); LYMPH # 1.1 K/mm3 (1.5-4.5); LYMPH % 13.9 % (24.0-44.0); MEAN CORPUSCULAR HEMOGLOBIN 30.4 pg (27.0-33.0); MEAN CORPUSCULAR HGB CONC 32.5 g/dl (32.0-36.5); MEAN CORPUSCULAR VOLUME 93.7 fl (80.0-96.0); MONO # 0.3 K/mm3 (0.0-0.8); MONO % 4.8 % (0.0-5.0); NEUTROPHILS # 5.1 K/mm3 (1.8-7.7); NEUTROPHILS % 76.2 % (36.0-66.0); PLATELET COUNT, AUTOMATED 231 k/mm3 (150-450); WHITE BLOOD COUNT 6.7 K/mm3 (4.0-10.0)
--- NOTE | 2016-10-04 10:44 | REP ---
CT HEAD WITHOUT CONTRAST: HISTORY: Weakness. COMPARISON: 05/17/2008 Areas of decreased attenuation are present in the periventricular white matter. This represents small vessel ischemic disease. There is no intraparenchymal hemorrhage, mass or midline shift. The ventricular system and cortical sulci are as well as subarachnoid space in the posterior fossa are dilated consistent with mild volume loss. There is no extracerebral collection. The visualized sinuses are clear. IMPRESSION: 1. Small vessel ischemic disease. 2. Mild volume loss. Signed by Marcial Bernal MD 10/04/2016 10:45 A
[2016-10-04] MEDS ORDERED: AMIT10TA PO (11:37)
[2016-10-04 12:11] VITALS: BP 159/80
--- NOTE | 2016-10-06 07:01 | ECGEPIP ---
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
== END 2016-10-04 12:12 | disposition home or self-care (01) ==
LOC: M ED 09:47
DX: B02.29 Other postherpetic nervous system involvement (principal); J44.9 Chronic obstructive pulmonary disease, unspecified; K21.9 Gastro-esophageal reflux disease without esophagitis; G70.00 Myasthenia gravis without (acute) exacerbation; M19.90 Unspecified osteoarthritis, unspecified site; Z79.899 Other long term (current) drug therapy

== ENCOUNTER → 2016-10-05 | Outpatient (REF) | payer MEDICARE, BC ==
[~2016-10-05] MED LIST changes: +GABA-283 PO
[2016-10-05 14:06] LABS: ALBUMIN/GLOBULIN RATIO 1.33 (1.00-1.93); ALKALINE PHOSPHATASE 63 U/L (45-117); ALT/SGPT 29 U/L (12-78); ANION GAP 4 MEQ/L (8-16); AST/SGOT 17 U/L (15-37); BILIRUBIN,TOTAL 0.7 MG/DL (0.2-1.0); BLOOD UREA NITROGEN 14 MG/DL (7-18); CALCIUM LEVEL 9.8 MG/DL (8.8-10.2); CARBON DIOXIDE LEVEL 33 MEQ/L (21-32); CHLORIDE LEVEL 102 MEQ/L (98-107); CREATININE FOR GFR 0.99 MG/DL (0.70-1.30); GLOMERULAR FILTRATION RATE > 60.0 (>42); GLUCOSE, FASTING 89 MG/DL (83-110); POTASSIUM SERUM 4.9 MEQ/L (3.5-5.1); SODIUM LEVEL 139 MEQ/L (136-145)
== END ==
LOC: M LABNEURO 12:42
PROVIDERS: ATTEND Psychiatry & Neurology Neurology
DX: G70.00 Myasthenia gravis without (acute) exacerbation (principal)

== ENCOUNTER 2016-10-14 09:31 | Inpatient (IN) | payer MEDICARE, BC ==
[~2016-10-14] VITALS: Ht 175.3 cm; Wt 87.2 kg
[2016-10-14] MEDS ORDERED: LYRI100C10 PO (09:39)
[2016-10-14] MEDS ORDERED: NS 500 ML IV ONE (10:00)
[2016-10-14 10:19] LABS: BASO % 0.3 % (0.0-1.0); EOS % 0.3 % (0.0-3.0); LARGE UNSTAINED CELL # 0.1 K/mm3 (0.0-0.4); LARGE UNSTAINED CELL % 0.8 % (0.0-4.0); LYMPH # 0.7 K/mm3 (1.5-4.5); LYMPH % 4.9 % (24.0-44.0); MEAN CORPUSCULAR HEMOGLOBIN 30.9 pg (27.0-33.0); MEAN CORPUSCULAR HGB CONC 34.2 g/dl (32.0-36.5); MEAN CORPUSCULAR VOLUME 90.5 fl (80.0-96.0); MONO # 0.5 K/mm3 (0.0-0.8); NEUTROPHILS # 10.7 K/mm3 (1.8-7.7); NEUTROPHILS % 89.8 % (36.0-66.0); PLATELET COUNT, AUTOMATED 238 k/mm3 (150-450); RED CELL DISTRIBUTION WIDTH 13.7 % (11.5-14.5)
--- NOTE | 2016-10-14 10:34 | REP ---
A PA and lateral chest, the patient sitting: Comparison is 08/29/2016. There is question of a right perihilar mass, partially obscured by an EKG lead as an interval change. This could merely be artifact from pulmonary vasculature. Consider PA and lateral views of the chest of the patient's clinical condition will permit. The remainder the lung gray are clear. Cardiac size is normal. The elle, mediastinum, and bony thorax are unremarkable. Signed by Soren Piper MD 10/14/2016 10:25 A
[2016-10-14 10:46] LABS: ALBUMIN 3.5 GM/DL (3.2-5.2); ALBUMIN/GLOBULIN RATIO 1.06 (1.00-1.93); ALKALINE PHOSPHATASE 74 U/L (45-117); ALT/SGPT 23 U/L (12-78); ANION GAP 10 MEQ/L (8-16); AST/SGOT 12 U/L (15-37); BILIRUBIN,DIRECT < 0.1 MG/DL (0.0-0.2); BILIRUBIN,TOTAL 0.6 MG/DL (0.2-1.0); BLOOD UREA NITROGEN 18 MG/DL (7-18); CALCIUM LEVEL 8.9 MG/DL (8.8-10.2); CARBON DIOXIDE LEVEL 25 MEQ/L (21-32); CHLORIDE LEVEL 104 MEQ/L (98-107); CREATININE FOR GFR 1.09 MG/DL (0.70-1.30); GLOMERULAR FILTRATION RATE > 60.0 (>42); GLUCOSE, FASTING 125 MG/DL (83-110); POTASSIUM SERUM 3.9 MEQ/L (3.5-5.1); SODIUM LEVEL 139 MEQ/L (136-145); TOTAL PROTEIN 6.8 GM/DL (6.4-8.2)
[2016-10-14] MEDS ORDERED: AMIT10TA PO (11:12)
[2016-10-14] MEDS ORDERED: CELL500T PO (11:12)
[2016-10-14] MEDS ORDERED: GABA600T PO (11:14)
[2016-10-14] MEDS ORDERED: fentaNYL 100 MCG/2 ML INJECTION (J3010) IV ONE (13:30)
[2016-10-14] MEDS ORDERED: PYRIDOSTIGMINE 60 MG TAB PO PRN (14:30)
[2016-10-14] MEDS ORDERED: ONDANSETRON 4 MG TAB (S0181) PO PRN (14:30)
[2016-10-14] MEDS ORDERED: ONDANSETRON 4MG/2ML VIAL (J2405) IV PRN (14:30)
--- NOTE | 2016-10-14 14:50 | HPEPDOC ---
Medical History and Physical Date of Admission Oct 14, 2016 at 14:19 History and Physical HISTORY AND PHYSICAL Date of admission: 10/14/2016 PCP: Dr. Linda Chief complaint: Weakness and dizziness HPI: 76-year-old male with myasthenia gravis, hyperlipidemia, GERD, macular degeneration, recent herpes zoster infection who presented to the emergency department for weakness and dizziness. He states that he was feeling very well and in his normal state of health when he went to bed last night. He woke up this morning about 6 AM, and when he stood up, he said that he felt very dizzy and unsteady and ended up falling backwards onto his bed. He did not have any injuries from the fall onto his bed. He states that he then proceeded to put on his pants, but this was a very challenging tasks secondary to the shaking he was experiencing. He attempted to go about his morning, but he could not hold anything secondary to the shaking and this is when his decided to take him to the emergency department. At home, his took his temperature and it was 100.0, at which point he then took some ibuprofen. In the emergency department his Tmax was 100.4, and he was noted to be significantly orthostatic. He denies any sick contacts. Past medical history: myasthenia gravis, hyperlipidemia, GERD, macular degeneration and recent herpes zoster infection Past surgical history: Right knee surgery, hernia repair Family history: Coronary artery disease Social history: The patient has been chewing tobacco for approximately 15 years. He states that he quit smoking in 1991. He does not drink any alcohol or use any drugs. He is and lives with his . Allergies: No known drug allergies Review of systems: General: Positive for subjective fevers, negative for chills Eyes: Negative for vision changes and ocular discharge ENT: Negative for sore throat and nose bleed Cardiovascular: Negative for chest pain and palpitations Respiratory: Negative for cough and shortness of breath GI: Negative for nausea, vomiting, diarrhea, constipation Musculoskeletal: Negative for neck and back pain Skin: Positive for residual discoloration of the left side of his face that has significantly improved since his original diagnosis of herpes zoster Neuro: Positive for dizziness. Negative for headache, numbness, tingling Psych: Negative for depression and suicidal ideation Endocrine: Negative for polyuria : Negative for dysuria Heme: Negative for bleeding Home meds: See below Physical exam: Vital signs: Vital Sign - Last 24 Hours 10/14/16 10/14/16 10/14/16 10/14/16 09:39 09:42 10:01 10:07 Temp 98.4 Pulse 135 108 Resp 24 B/P (MAP) 104/55 (71) 101/65 (77) Pulse Ox 95 94 O2 Delivery Room Air 10/14/16 10/14/16 10/14/16 10/14/16 10:16 10:23 10:31 10:36 Temp 100.4 Pulse 110 100 B/P (MAP) 105/58 (74) Pulse Ox 95 94 10/14/16 10/14/16 10/14/16 10/14/16 10:37 10:38 10:39 10:40 Pulse 95 117 108 B/P (MAP) 68/46 (53) 74/49 (57) 105/58 (74) 74/49 (57) 68/46 (53) 10/14/16 10/14/16 10/14/16 10/14/16 10:44 10:46 11:01 11:04 Pulse 94 94 Resp 18 B/P (MAP) 111/69 (83) 107/61 (76) Pulse Ox 94 94 10/14/16 10/14/16 10/14/16 10/14/16 11:16 11:19 11:31 11:34 Pulse 92 92 B/P (MAP) 100/59 (73) 103/63 (76) Pulse Ox 94 93 10/14/16 10/14/16 10/14/16 10/14/16 11:46 11:49 12:04 12:19 Temp 98.8 Pulse 90 90 90 Resp 16 B/P (MAP) 103/61 (75) 109/67 (81) 100/62 (75) Pulse Ox 93 97 95 94 10/14/16 10/14/16 10/14/16 10/14/16 12:34 12:49 13:04 13:19 Pulse 88 92 86 86 B/P (MAP) 104/67 (79) 122/56 (78) 94/64 (74) 108/63 (78) Pulse Ox 94 95 94 96 10/14/16 10/14/16 10/14/16 10/14/16 13:26 13:34 13:49 14:04 Temp 99.5 Pulse 92 86 90 Resp 16 16 16 B/P (MAP) 135/71 (92) 137/74 (95) Pulse Ox 96 94 Gen.: awake, alert, no acute distress Eyes: Extraocular movements intact, normal sclera ENT: Moist mucous membranes Cardiovascular: RRR, no murmurs rubs or gallops Lungs: clear to auscultation bilaterally, no rales, rhonchi, or wheeze Abdomen: Soft, NT/ND, normal BS Musculoskeletal: normal range of motion Extremities: No peripheral edema Neuro: alert and oriented 3, normal speech, no focal deficits, no meningeal signs Skin: increased pigmentation of right cheek/face but no erythema or findings to suggest cellulitis Psych: Normal mood with congruent affect Labs and radiology: See below BUN 18, creatinine 1.09 White count 12 Lactate 2.0 BNP 17 TSH and BMP unremarkable EKG shows an unchanged incomplete right bundle branch block UA is unremarkable Blood cultures pending Chest x-ray shows a possible right perihilar mass Assessment and plan: 76-year-old male with myasthenia gravis, hyperlipidemia, GERD, macular degeneration, recent herpes zoster infection who presented to the emergency department for weakness and dizziness; he is admitted with orthostatic hypotension. 1. Orthostatic hypotension: Etiology is unclear at this point, but the patient does appear to be mildly dry as his BUN is elevated and his creatinine is slightly over 1. Upon review of the EMR, it appears that his creatinine is consistently well below 1 at baseline. There is certainly concern for infection , as the patient has a white count of 12 and a Tmax of 100.4, however, a source is not apparent at this time. His initial lactate is within normal limits, but we will be repeating a lactate in several hours. His UA does not show any evidence of infection, and neither does his chest x-ray. Secondary to a possible right perihilar mass on the chest x-ray, we will check a CT of his chest. Blood and urine cultures are pending, which we will follow up. We will continue IV fluids and will periodically check orthostatics. Patient is relatively immunosuppressed given the CellCept that he takes at home, but as there is no apparent source at this time, and as the patient's blood pressure has now improved to the 130s systolic, and he is well appearing upon exam, we will hold off on any antibiotics until source becomes apparent or if he deteriorates clinically. We will follow-up his cultures as well as the CT of his chest. The patient denies any headache, his mental status is normal, and he does not have any meningeal signs upon exam. He also denies diarrhea or any upper respiratory symptoms. 2. Recent herpes zoster infection with post herpetic neuralgia: The patient was admitted in August for a herpes zoster infection and was on IV acyclovir as well as clindamycin for suspected superimposed cellulitis at the time. His shows me pictures of his face in August, and although he still has some discoloration and increased pigmentation, he has significantly improved, and I do not see any evidence of cellulitis on his face currently. He does complain of continued neuropathic pain, and he has been working with his PCP to alleviate this. He is currently on gabapentin and Lyrica, which we will continue. Dosing of these has been adjusted as recently as Saturday by his PCP. The patient also takes Elavil and doxepin at home at bedtime. It seems somewhat unusual that he takes 2 TCAs at bedtime, but we will continue them both at this time and monitor him closely. 3. Hyperlipidemia: Continue home statin. 4. GERD: Continue home PPI. 5. Myasthenia gravis: Continue home CellCept and Mest[place]on. DVT prophylaxis: SCDs Dispo: place in observation on the service of Dr. Lisa Harper CODE STATUS: Full code Vital Signs Vital Signs Date Time Temp Pulse Resp B/P (MAP) Pulse Ox O2 Delivery O2 Flow Rate FiO2 10/14/16 14:04 99.5 90 16 137/74 (95) 94 10/14/16 09:39 Room Air Laboratory Data Labs 24H Laboratory Tests 2 10/14/16 10:06: White Blood Count 12.0H, Red Blood Count 4.45, Hemoglobin 13.8L, Hematocrit 40.3L, Mean Corpuscular Volume 90.5, Mean Corpuscular Hemoglobin 30.9, Mean Corpuscular Hemoglobin Concent 34.2, Red Cell Distribution Width 13.7, Platelet Count 238, Neutrophils (%) (Auto) 89.8H, Lymphocytes (%) (Auto) 4.9L, Monocytes (%) (Auto) 4.0, Eosinophils (%) (Auto) 0.3, Basophils (%) (Auto) 0.3, Neutrophils # (Auto) 10.7H, Lymphocytes # (Auto) 0.7L, Monocytes # (Auto) 0.5, Eosinophils # (Auto) 0.0, Basophils # (Auto) 0.0, Large Unclassified Cells % 0.8 , Large Unclassified Cells # 0.1, Anion Gap 10, Glomerular Filtration Rate > 60.0, Lactic Acid Level 2.0, Calcium Level 8.9, Aspartate Amino Transf (AST/SGOT ) 12L, Alanine Aminotransferase (ALT/SGPT) 23, Alkaline Phosphatase 74, Total Bilirubin 0.6, Direct Bilirubin < 0.1, B-Type Natriuretic Peptide 17.1, Total Protein 6.8, Albumin 3.5, Albumin/Globulin Ratio 1.06, Thyroid Stimulating Hormone (TSH) 1.340 10/14/16 10:27: Bedside Glucose (Misc Panel) 188H 10/14/16 12:55: Urine Appearance CLEAR, Urine Color YELLOW, Urine pH 5.0, Urine Specific [place] 1.020, Urine Protein NEGATIVE, Urine Glucose (UA) NEGATIVE, Urine Ketones NEGATIVE, Urine Urobilinogen 0.2, Urine Bilirubin NEGATIVE, Urine Leukocyte Esterase NEGATIVE, Urine Blood NEGATIVE, Urine Nitrite NEGATIVE, Urine WBC (Auto) 0, Urine RBC (Auto) 2, Urine Hyaline Casts (Auto) 0, Urine Bacteria (Auto) NEGATIVE, Urine Squamous Epithelial Cells 0, Urine Mucus (Auto) SMALL, Urine Sperm (Auto) CBC/BMP Laboratory Tests 10/14/16 10:06 Red Blood Count 4.45, Mean Corpuscular Volume 90.5, Mean Corpuscular Hemoglobin 30.9, Mean Corpuscular Hemoglobin Concent 34.2, Red Cell Distribution Width 13.7 , Neutrophils (%) (Auto) 89.8 H, Lymphocytes (%) (Auto) 4.9 L, Monocytes (%) ( Auto) 4.0, Eosinophils (%) (Auto) 0.3, Basophils (%) (Auto) 0.3, Neutrophils # ( Auto) 10.7 H, Lymphocytes # (Auto) 0.7 L, Monocytes # (Auto) 0.5, Eosinophils # (Auto) 0.0, Basophils # (Auto) 0.0 Microbiology Microbiology 10/14/16 Blood Culture, Received Pending 10/14/16 Blood Culture, Received Pending Home Medications Scheduled (Savision) 1 Cap Cap, 2 CAP PO DAILY Amitriptyline HCl (Amitriptyline HCl) 10 Mg Tab, 10 MG PO QHS STARTED 10/04, SUPPOSED TO INCREASE DOSE TO 20MG QHS AFTER 2 DAYS, PT HAS NOT INCREASED Atorvastatin Calcium (Atorvastatin Calcium) 20 Mg Tab, 20 MG PO QHS Doxepin HCl (Doxepin HCl) 25 Mg Cap, 25 MG PO QHS Esomeprazole Magnesium Trihydr (Nexium) 40 Mg Cap, 40 MG PO QHS Gabapentin (Gabapentin) 600 Mg Tab, 600 MG PO TID Mycophenolate Mofetil (Cellcept) 500 Mg Tab, 1,000 MG PO BID Pregabalin (Lyrica) 100 Mg Cap, 100 MG PO TID Scheduled PRN Pyridostigmine [place] (Pyridostigmine [place]) 60 Mg Tab, 60 MG PO TID PRN for PAIN Allergies Coded Allergies: No Known Allergies (Verified , 08/23/16) FARIDEH FERGUSON Oct 14, 2016 14:50
--- NOTE | 2016-10-14 15:10 | REP ---
CT of the chest without IV contrast: Comparison is the plain film PA and lateral study performed earlier today. There is a comparison chest CT dated 12/06/2014. There is a multifocal right upper lobe infiltrate. The remainder of the lung gray are clear. There are no pleural effusions. There is no mediastinal or axillary adenopathy. In the absence of IV contrast the study is insensitive for hilar adenopathy. Thoracic aorta is unremarkable. Cardiac size normal. There is calcified atheroma in the anterior descending coronary artery. 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 Impression: Multifocal right upper lobe infiltrate. Signed by Soren Piper MD 10/14/2016 03:02 P
[2016-10-14 15:39] VITALS: BP 109/65
[2016-10-14] MEDS: GABAPENTIN 300 MG CAP PO SCH ×2 (16:33→20:18)
[2016-10-14] MEDS: NS 1,000 ML IV SCH (16:33)
[2016-10-14] MEDS: PREGABALIN 100 MG CAP (LYRICA) PO SCH ×2 (16:33→20:19)
[2016-10-14 18:00] VITALS: BP_SYST 102; BP_SYST 103; BP_SYST 109; BP_DIAS 55; BP_DIAS 57; BP_DIAS 60
--- NOTE | 2016-10-14 18:03 | PHACANCOPD ---
PHARMACY VANCOMYCIN DOSING Pt Demographics Demographics Patient Age:76 , Weight:84.370 , Gender: male Adjusted Body Weight Date: 10/14/16, Adjusted Body Weight: Kg Events Past 24 Hours Events Past 24 Hours: YES: Change in CrCl, Elevation in WBC Vancomycin Vancomycin indication: HCAP Vancomycin Target Ranges: 15-20 mcg/ml Vancomycin Load Y/N: Yes Load Dose Date Time Vancomycin Load Dose: 1000mg Date: 10/14 Time: 21:00 Vancomycin Dose Date: 10/14/16. Current Vancomycin Dose: [750mg IV q8h @05] Intermittent Dosing?: No Labs Labs Item Value Date Time White Blood Count 12.0 K/mm3 H 10/14/16 1006 Creatinine 1.09 MG/DL 10/14/16 1006 Micro Microbiology 10/14/16 Blood Culture, Received Pending 10/14/16 Blood Culture, Received Pending Creatinine Clearance Date:10/14/16. Creatinine Clearance: [58 ml/min]. Pending Labs Vanco trough scheduled 10/16 @04:00 Assessment and Plan Maintaining Current Dose?: No Reason for dose change: No Dose Change Pharmacist Note Pharmacist Note Date: 10/14/16. Pharmacist note: pt was previously admitted this August for Herpes Zoster and now presents with HCAP. He has been started on Levaquin, Zosyn and Vancomycin. No nasal MRSA screen was performed last admission, but he was maintained on ~3g of vancomycin/day with slightly better renal function ( SCr baseline ~0.8). Pt is likely dehydrated, currently on IVF. I have started him with a 1g load followed by 750mg IV q8h. I have a trough scheduled Saturday. We will continue to monitor and follow up on trough and cultures. Sandro Sesay Pharm.D. Oct 14, 2016 18:03
[2016-10-14] MEDS: PIPERACILLIN/TAZOBACTAM SOD 3.375 GM in D5W MINI-BAG PLUS 50 ML IV SCH ×2 (18:28→23:39)
--- NOTE | 2016-10-14 19:34 | ECGEPIP ---
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
[2016-10-14] MEDS ORDERED: LevoFLOXacin IV 750 MG in APPROPRIATE DILUENT 1 EA IV SCH (20:00)
[2016-10-14] MEDS: MYCOPHENOLATE MOFETIL 250 MG CAP (J7517) PO SCH (20:19)
[2016-10-14] MEDS: PANTOPRAZOLE 40MG TAB (PROTONIX) PO SCH (20:19)
[2016-10-14] MEDS: DOXEPIN 25 MG CAP PO SCH (20:19)
[2016-10-14] MEDS: AMITRIPTYLINE 10 MG TAB PO SCH (20:19)
[2016-10-14] MEDS: ATORVASTATIN 20 MG TAB PO SCH (20:19)
[2016-10-14 20:25] VITALS: BP 135/72
[2016-10-14] MEDS ORDERED: VANCOMYCIN HCL 1,000 MG, VIAL MATE ADAPTER 1 EACH in D5W 250 ML IV ONE (21:00)
[2016-10-14 23:31] VITALS: BP 154/72
[2016-10-14] MEDS: ACETAMINOPHEN TAB 650MG DOSE (2X325MG) PO PRN (23:39)
[2016-10-15] VITALS (8 sets, daily range): BP systolic 107–139; BP diastolic 52–70
[2016-10-15] MEDS: NS 1,000 ML IV SCH ×3 (04:16→17:37)
[2016-10-15] MEDS: VANCOMYCIN HCL 750 MG, VIAL MATE ADAPTER 1 EACH in D5W 250 ML IV SCH ×3 (04:16→21:42)
[2016-10-15 05:36] LABS: BASO % 0.1 % (0.0-1.0); EOS # 0.2 K/mm3 (0.0-0.50); EOS % 1.8 % (0.0-3.0); LARGE UNSTAINED CELL # 0.1 K/mm3 (0.0-0.4); LARGE UNSTAINED CELL % 1.1 % (0.0-4.0); LYMPH # 0.9 K/mm3 (1.5-4.5); LYMPH % 7.6 % (24.0-44.0); MEAN CORPUSCULAR HEMOGLOBIN 31.4 pg (27.0-33.0); MEAN CORPUSCULAR HGB CONC 33.9 g/dl (32.0-36.5); MEAN CORPUSCULAR VOLUME 92.6 fl (80.0-96.0); MONO # 0.4 K/mm3 (0.0-0.8); MONO % 4.3 % (0.0-5.0); NEUTROPHILS # 8.5 K/mm3 (1.8-7.7); NEUTROPHILS % 85.1 % (36.0-66.0); PLATELET COUNT, AUTOMATED 189 k/mm3 (150-450); RED CELL DISTRIBUTION WIDTH 13.7 % (11.5-14.5); WHITE BLOOD COUNT 9.9 K/mm3 (4.0-10.0)
[2016-10-15] MEDS: PIPERACILLIN/TAZOBACTAM SOD 3.375 GM in D5W MINI-BAG PLUS 50 ML IV SCH ×4 (05:38→23:24)
[2016-10-15 05:54] LABS: ANION GAP 5 MEQ/L (8-16); BLOOD UREA NITROGEN 15 MG/DL (7-18); CALCIUM LEVEL 8.5 MG/DL (8.8-10.2); CARBON DIOXIDE LEVEL 29 MEQ/L (21-32); CHLORIDE LEVEL 105 MEQ/L (98-107); CREATININE FOR GFR 0.93 MG/DL (0.70-1.30); GLOMERULAR FILTRATION RATE > 60.0 (>42); GLUCOSE, FASTING 124 MG/DL (83-110); MAGNESIUM LEVEL 1.6 MG/DL (1.8-2.4); POTASSIUM SERUM 3.6 MEQ/L (3.5-5.1); SODIUM LEVEL 139 MEQ/L (136-145)
[2016-10-15] MEDS ORDERED: MAG SULF 1GM/100ML (MAG RUN) 1 GM in APPROPRIATE DILUENT 1 EA IV ONE (06:45)
[2016-10-15] MEDS: MYCOPHENOLATE MOFETIL 250 MG CAP (J7517) PO SCH ×2 (07:58→21:41)
[2016-10-15] MEDS: GABAPENTIN 300 MG CAP PO SCH ×3 (07:58→21:41)
[2016-10-15] MEDS: ACETAMINOPHEN TAB 650MG DOSE (2X325MG) PO PRN ×2 (07:59→15:55)
[2016-10-15] MEDS: MAGNESIUM OXIDE 400 MG TAB (MAG-OX) PO SCH ×2 (07:59→21:42)
[2016-10-15] MEDS: PREGABALIN 100 MG CAP (LYRICA) PO SCH (07:59)
--- NOTE | 2016-10-15 11:18 | IPNPDOC ---
Subjective Date Seen The patient was seen on 10/15/16. Subjective Chief Complaint/HPI The patient is a 76-year-old male admitted with a reason for visit of Orthostatic Hypotension. Events since last encounter patient feels about the same as yesterday though says that he is shaking less. Again had a spike of fever this am . Denied any dizziness this am , does not have any appetite so did not have any breakfast. denied any abdominal pain , nausea or vomiting or diarrhea, does have burning and pain on the left side of face in the cheek with discharge for the left nose. going on since his herpes infection in august. Objective Physical Examination General Exam: Positive: Alert, Cooperative, No Acute Distress Eye Exam: Positive: PERRLA, Conjunctiva & lids normal, EOMI, Negative: Sclera icteric ENT Exam: Positive: Atraumatic, Mucous membr. moist/pink, Other ENT (nasal discharge from the left nares. ) Neck Exam: Positive: Supple, Negative: JVD, thyromegaly Chest Exam: Positive: Clear to auscultation Heart Exam: Positive: Rate Normal, Regular Rhythm, Normal S1, Normal S2, Negative: Murmurs, Rubs Telemetry: Positive: No significant arrhythmia Abdomen Exam: Positive: Normal bowel sounds, Soft, Negative: Tenderness, Hepatospenomegaly Extremity Exam: Positive: Normal pulses, Negative: Clubbing, Cyanosis, Edema Skin Exam: Positive: Rash (on the left cheeck discoloration) Assessment /Plan Problems (1) Pneumonia Status: Acute Problem Text: will continue with zosyn and vancomycin. (2) Orthostatic hypotension Status: Acute Problem Text: due to infection will hold antihypertensives now. (3) Post herpetic neuralgia Status: Chronic Problem Text: continue gabapentin and amitriptyline will hold lyrica . (4) GERD (gastroesophageal reflux disease) Status: Chronic (5) Macular degeneration Status: Chronic (6) Myasthenia gravis Status: Chronic Problem Text: continue cellcept and pyridostigmine. (7) Hyperlipidemia Status: Chronic Problem Text: continue statin (8) History of herpes zoster Problem Text: of the face in the trigeminal distribution in august facial lesions have healed but pateint has intermittent scabs and discharge from the left nose. will ask ENT to evaluate. (9) Atrial flutter, paroxysmal Status: Acute Problem Text: seen in the telemetry overnight . Rate around 110. Now in sinus rhythm. Plan/VTE VTE Prophylaxis Ordered?: Yes VS[facility]/I&O Vital Signs Date Time Temp Pulse Resp B/P (MAP) Pulse Ox O2 Delivery O2 Flow Rate FiO2 10/15/16 09:00 Room Air 10/15/16 08:00 101.8 97 20 116/54 (74) 95 I&O- Last 24 Hours up to 6 AM 10/15/16 06:00 Intake Total 1175 ml Output Total 450 ml Balance 725 ml Laboratory Data 24H LABS Laboratory Tests 2 10/14/16 12:55: Urine Appearance CLEAR, Urine Color YELLOW, Urine pH 5.0, Urine Specific [place] 1.020, Urine Protein NEGATIVE, Urine Glucose (UA) NEGATIVE, Urine Ketones NEGATIVE, Urine Urobilinogen 0.2, Urine Bilirubin NEGATIVE, Urine Leukocyte Esterase NEGATIVE, Urine Blood NEGATIVE, Urine Nitrite NEGATIVE, Urine WBC (Auto) 0, Urine RBC (Auto) 2, Urine Hyaline Casts (Auto) 0, Urine Bacteria (Auto) NEGATIVE, Urine Squamous Epithelial Cells 0, Urine Mucus (Auto) SMALL, Urine Sperm (Auto) 10/14/16 16:08: Lactic Acid Level 0.9 10/15/16 05:23: White Blood Count 9.9, Red Blood Count 3.77L, Hemoglobin 11.9L, Hematocrit 34.9L , Mean Corpuscular Volume 92.6, Mean Corpuscular Hemoglobin 31.4, Mean Corpuscular Hemoglobin Concent 33.9, Red Cell Distribution Width 13.7, Platelet Count 189, Neutrophils (%) (Auto) 85.1H, Lymphocytes (%) (Auto) 7.6L, Monocytes (%) (Auto) 4.3, Eosinophils (%) (Auto) 1.8, Basophils (%) (Auto) 0.1, Neutrophils # (Auto) 8.5H, Lymphocytes # (Auto) 0.9L, Monocytes # (Auto) 0.4, Eosinophils # (Auto) 0.2, Basophils # (Auto) 0.0, Large Unclassified Cells % 1.1 , Large Unclassified Cells # 0.1, Anion Gap 5L, Glomerular Filtration Rate > 60.0, Blood Urea Nitrogen 15, Creatinine 0.93, Sodium Level 139, Potassium Level 3.6, Chloride Level 105, Carbon Dioxide Level 29, Calcium Level 8.5L, Magnesium Level 1.6L CBC/BMP Laboratory Tests 10/15/16 05:23 Red Blood Count 3.77 L, Mean Corpuscular Volume 92.6, Mean Corpuscular Hemoglobin 31.4, Mean Corpuscular Hemoglobin Concent 33.9, Red Cell Distribution Width 13.7, Neutrophils (%) (Auto) 85.1 H, Lymphocytes (%) (Auto) 7.6 L, Monocytes (%) (Auto) 4.3, Eosinophils (%) (Auto) 1.8, Basophils (%) (Auto ) 0.1, Neutrophils # (Auto) 8.5 H, Lymphocytes # (Auto) 0.9 L, Monocytes # (Auto ) 0.4, Eosinophils # (Auto) 0.2, Basophils # (Auto) 0.0, Calcium Level 8.5 L Microbiology Microbiology 10/14/16 Blood Culture, Received Pending 10/14/16 Blood Culture - Preliminary, Resulted No growth after 24 hours . All specim... ALBERT LAL MD Oct 15, 2016 11:18
[2016-10-15] MEDS: MUPIROCIN 2% OINT 22 GM TUBE TOP SCH ×2 (15:55→21:43)
[2016-10-15] MEDS: PANTOPRAZOLE 40MG TAB (PROTONIX) PO SCH (21:41)
[2016-10-15] MEDS: AMITRIPTYLINE 10 MG TAB PO SCH (21:41)
[2016-10-15] MEDS: DOXEPIN 25 MG CAP PO SCH (21:41)
[2016-10-15] MEDS: ATORVASTATIN 20 MG TAB PO SCH (21:41)
[2016-10-16 04:00] VITALS: BP 134/63
[2016-10-16 04:23] LABS: BASO % 0.3 % (0.0-1.0); EOS # 0.3 K/mm3 (0.0-0.50); EOS % 4.1 % (0.0-3.0); LARGE UNSTAINED CELL # 0.1 K/mm3 (0.0-0.4); LARGE UNSTAINED CELL % 1.8 % (0.0-4.0); LYMPH # 1.3 K/mm3 (1.5-4.5); LYMPH % 14.3 % (24.0-44.0); MEAN CORPUSCULAR HEMOGLOBIN 31.1 pg (27.0-33.0); MEAN CORPUSCULAR HGB CONC 33.7 g/dl (32.0-36.5); MEAN CORPUSCULAR VOLUME 92.4 fl (80.0-96.0); MONO # 0.4 K/mm3 (0.0-0.8); MONO % 5.6 % (0.0-5.0); NEUTROPHILS # 5.8 K/mm3 (1.8-7.7); NEUTROPHILS % 73.9 % (36.0-66.0); PLATELET COUNT, AUTOMATED 207 k/mm3 (150-450); RED CELL DISTRIBUTION WIDTH 13.8 % (11.5-14.5); WHITE BLOOD COUNT 7.8 K/mm3 (4.0-10.0)
[2016-10-16 04:33] LABS: ANION GAP 6 MEQ/L (8-16); BLOOD UREA NITROGEN 9 MG/DL (7-18); CALCIUM LEVEL 8.3 MG/DL (8.8-10.2); CARBON DIOXIDE LEVEL 28 MEQ/L (21-32); CHLORIDE LEVEL 104 MEQ/L (98-107); CREATININE FOR GFR 0.92 MG/DL (0.70-1.30); GLOMERULAR FILTRATION RATE > 60.0 (>42); GLUCOSE, FASTING 113 MG/DL (83-110); MAGNESIUM LEVEL 1.8 MG/DL (1.8-2.4); POTASSIUM SERUM 3.5 MEQ/L (3.5-5.1); SODIUM LEVEL 138 MEQ/L (136-145)
--- NOTE | 2016-10-16 04:47 | PHACANCOPD ---
PHARMACY VANCOMYCIN DOSING Pt Demographics Demographics Patient Age:76 , Weight:87.200 , Gender: male Adjusted Body Weight Date: 10/14/16, Adjusted Body Weight: Kg Vancomycin Vancomycin indication: HCAP Vancomycin Target Ranges: 15-20 mcg/ml Vancomycin Load Y/N: Yes Load Dose Date Time Vancomycin Load Dose: 1000mg Date: 10/14 Time: 21:00 Vancomycin Dose Date: 10/14/16. Current Vancomycin Dose: [750mg IV q8h @05] Intermittent Dosing?: No Labs Micro Microbiology 10/14/16 Blood Culture - Preliminary, Resulted No growth after 24 hours . All specim... 10/14/16 Blood Culture - Preliminary, Resulted No growth after 24 hours . All specim... 10/15/16 Gram Stain - Final, Resulted 10/15/16 Sputum Culture, Resulted Pending Creatinine Clearance Date:10/14/16. Creatinine Clearance: [58 ml/min]. Pending Labs Vanco trough scheduled 10/16 @04:00 Assessment and Plan Maintaining Current Dose?: Yes Reason for dose change: No Dose Change Pharmacist Note Pharmacist Note Date: 10/16/16. Pharmacist note:VANCOMYCIN trough drawn this morning reported as 13.7-will continue with 750mg IV Q8H regimen: SCR/CRCL stable at this point Date: 10/14/16. Pharmacist note: pt was previously admitted this August for Herpes Zoster and now presents with HCAP. He has been started on Levaquin, Zosyn and Vancomycin. No nasal MRSA screen was performed last admission, but he was maintained on ~3g of vancomycin/day with slightly better renal function ( SCr baseline ~0.8). Pt is likely dehydrated, currently on IVF. I have started him with a 1g load followed by 750mg IV q8h. I have a trough scheduled Saturday morning. We will continue to monitor and follow up on trough and cultures. SANDRA REID PHARMACY Oct 16, 2016 04:47
[2016-10-16] MEDS: VANCOMYCIN HCL 750 MG, VIAL MATE ADAPTER 1 EACH in D5W 250 ML IV SCH ×3 (05:19→20:54)
[2016-10-16 05:44] VITALS: BP_SYST 124; BP_SYST 127; BP_SYST 143; BP_DIAS 68; BP_DIAS 69; BP_DIAS 75
[2016-10-16] MEDS: PIPERACILLIN/TAZOBACTAM SOD 3.375 GM in D5W MINI-BAG PLUS 50 ML IV SCH ×4 (06:45→23:22)
[2016-10-16 08:00] VITALS: BP 127/69
[2016-10-16] MEDS: GABAPENTIN 300 MG CAP PO SCH (08:31)
[2016-10-16] MEDS: MYCOPHENOLATE MOFETIL 250 MG CAP (J7517) PO SCH ×2 (08:31→20:53)
[2016-10-16] MEDS: MUPIROCIN 2% OINT 22 GM TUBE TOP SCH ×3 (08:32→20:55)
[2016-10-16] MEDS: MAGNESIUM OXIDE 400 MG TAB (MAG-OX) PO SCH ×2 (08:32→20:53)
[2016-10-16] MEDS: PREGABALIN 100 MG CAP (LYRICA) PO SCH ×3 (12:05→20:54)
[2016-10-16] MEDS: NS 1,000 ML IV SCH (12:08)
--- NOTE | 2016-10-16 14:43 | IPNPDOC ---
Subjective Date Seen The patient was seen on 10/16/16. Subjective Chief Complaint/HPI The patient is a 76-year-old male admitted with a reason for visit of Orthostatic Hypotension. Events since last encounter feeling better today. no further chills or fever this am , appetite better, no dizziness, nasal discharge decreased. But he is in severe pain in the trigeminal nerve distribution on the left side. Last spike of fever was yesterday morning. Objective Physical Examination General Exam: Positive: Alert, Cooperative, No Acute Distress Eye Exam: Positive: PERRLA, Conjunctiva & lids normal, EOMI, Negative: Sclera icteric ENT Exam: Positive: Atraumatic, Mucous membr. moist/pink, Other ENT (nasal discharge from the left nares. ) Neck Exam: Positive: Supple, Negative: JVD, thyromegaly Chest Exam: Positive: Clear to auscultation Heart Exam: Positive: Rate Normal, Regular Rhythm, Normal S1, Normal S2, Negative: Murmurs, Rubs Telemetry: Positive: No significant arrhythmia Abdomen Exam: Positive: Normal bowel sounds, Soft, Negative: Tenderness, Hepatospenomegaly Extremity Exam: Positive: Normal pulses, Negative: Clubbing, Cyanosis, Edema Skin Exam: Positive: Rash (on the left cheeck discoloration) Assessment /Plan Problems (1) Pneumonia Status: Acute Problem Text: will continue with zosyn and vancomycin. (2) Orthostatic hypotension Status: Resolved Problem Text: due to infection will hold antihypertensives now. will restart when BP starts rising. (3) Post herpetic neuralgia Status: Chronic Problem Text: continue gabapentin and amitriptyline. restart lyrica. (4) GERD (gastroesophageal reflux disease) Status: Chronic (5) Macular degeneration Status: Chronic (6) Myasthenia gravis Status: Chronic Problem Text: continue cellcept and pyridostigmine. (7) Hyperlipidemia Status: Chronic Problem Text: continue statin (8) History of herpes zoster Problem Text: of the face in the trigeminal distribution in august facial lesions have healed but patient has intermittent scabs and discharge from the left nose. Seen by ENT , no herpetic lesions inside the nose. though there is some scabing , viral culture sent form nose. (9) Atrial flutter, paroxysmal Status: Acute Problem Text: seen in the telemetry overnight . Rate around 110. Now in sinus rhythm. Plan/VTE VTE Prophylaxis Ordered?: Yes VS, I&O, 24H, Fishbone Vital Signs/I&O Vital Signs Date Time Temp Pulse Resp B/P (MAP) Pulse Ox O2 Delivery O2 Flow Rate FiO2 10/16/16 08:00 99.5 89 20 127/69 (88) 94 Room Air I&O- Last 24 Hours up to 6 AM 10/16/16 06:00 Intake Total 4497 ml Output Total 2250 ml Balance 2247 ml Laboratory Data 24H LABS Laboratory Tests 2 10/16/16 03:59: White Blood Count 7.8, Red Blood Count 3.61L, Hemoglobin 11.2L, Hematocrit 33.4L , Mean Corpuscular Volume 92.4, Mean Corpuscular Hemoglobin 31.1, Mean Corpuscular Hemoglobin Concent 33.7, Red Cell Distribution Width 13.8, Platelet Count 207, Neutrophils (%) (Auto) 73.9H, Lymphocytes (%) (Auto) 14.3L, Monocytes (%) (Auto) 5.6H, Eosinophils (%) (Auto) 4.1H, Basophils (%) (Auto) 0.3 , Neutrophils # (Auto) 5.8, Lymphocytes # (Auto) 1.3L, Monocytes # (Auto) 0.4, Eosinophils # (Auto) 0.3, Basophils # (Auto) 0.0, Large Unclassified Cells % 1.8 , Large Unclassified Cells # 0.1, Anion Gap 6L, Glomerular Filtration Rate > 60.0, Blood Urea Nitrogen 9, Creatinine 0.92, Sodium Level 138, Potassium Level 3.5, Chloride Level 104, Carbon Dioxide Level 28, Calcium Level 8.3L, Magnesium Level 1.8, Vancomycin Level Trough 13.7 CBC/BMP Laboratory Tests 10/16/16 03:59 Red Blood Count 3.61 L, Mean Corpuscular Volume 92.4, Mean Corpuscular Hemoglobin 31.1, Mean Corpuscular Hemoglobin Concent 33.7, Red Cell Distribution Width 13.8, Neutrophils (%) (Auto) 73.9 H, Lymphocytes (%) (Auto) 14.3 L, Monocytes (%) (Auto) 5.6 H, Eosinophils (%) (Auto) 4.1 H, Basophils (%) (Auto) 0.3, Neutrophils # (Auto) 5.8, Lymphocytes # (Auto) 1.3 L, Monocytes # ( Auto) 0.4, Eosinophils # (Auto) 0.3, Basophils # (Auto) 0.0, Calcium Level 8.3 L Microbiology Microbiology 10/14/16 Blood Culture - Preliminary, Resulted No Growth after 48 hours. All Specime... 10/14/16 Blood Culture - Preliminary, Resulted No Growth after 48 hours. All Specime... 10/15/16 Gram Stain - Final, Resulted 10/15/16 Sputum Culture, Resulted Pending ALBERT LAL MD Oct 16, 2016 14:43
[2016-10-16 15:09] VITALS: BP 129/82
[2016-10-16] MEDS: GABAPENTIN 400 MG CAP PO SCH ×2 (16:19→20:54)
[2016-10-16 19:37] VITALS: BP_SYST 130; BP_SYST 134; BP_SYST 145; BP_DIAS 62; BP_DIAS 67; BP_DIAS 75
[2016-10-16] MEDS: AMITRIPTYLINE 10 MG TAB PO SCH (20:54)
[2016-10-16] MEDS: DOXEPIN 25 MG CAP PO SCH (20:54)
[2016-10-16] MEDS: PANTOPRAZOLE 40MG TAB (PROTONIX) PO SCH (20:54)
[2016-10-16] MEDS: ATORVASTATIN 20 MG TAB PO SCH (20:54)
[2016-10-16 22:00] VITALS: BP 140/71
[2016-10-17] MEDS: VANCOMYCIN HCL 750 MG, VIAL MATE ADAPTER 1 EACH in D5W 250 ML IV SCH ×3 (04:47→20:42)
[2016-10-17] MEDS: PIPERACILLIN/TAZOBACTAM SOD 3.375 GM in D5W MINI-BAG PLUS 50 ML IV SCH ×3 (06:04→17:43)
[2016-10-17 06:14] VITALS: BP_SYST 129; BP_SYST 142; BP_DIAS 57; BP_DIAS 66; BP_DIAS 80
[2016-10-17 06:44] LABS: BASO % 0.4 % (0.0-1.0); EOS # 0.2 K/mm3 (0.0-0.50); EOS % 2.5 % (0.0-3.0); LARGE UNSTAINED CELL # 0.1 K/mm3 (0.0-0.4); LARGE UNSTAINED CELL % 1.4 % (0.0-4.0); LYMPH # 1.2 K/mm3 (1.5-4.5); LYMPH % 12.5 % (24.0-44.0); MEAN CORPUSCULAR HEMOGLOBIN 30.9 pg (27.0-33.0); MEAN CORPUSCULAR HGB CONC 33.4 g/dl (32.0-36.5); MEAN CORPUSCULAR VOLUME 92.5 fl (80.0-96.0); MONO # 0.4 K/mm3 (0.0-0.8); MONO % 4.5 % (0.0-5.0); NEUTROPHILS % 78.7 % (36.0-66.0); PLATELET COUNT, AUTOMATED 222 k/mm3 (150-450); RED CELL DISTRIBUTION WIDTH 13.8 % (11.5-14.5); WHITE BLOOD COUNT 8.9 K/mm3 (4.0-10.0)
[2016-10-17 07:02] LABS: ANION GAP 8 MEQ/L (8-16); BLOOD UREA NITROGEN 5 MG/DL (7-18); CARBON DIOXIDE LEVEL 25 MEQ/L (21-32); CHLORIDE LEVEL 103 MEQ/L (98-107); CREATININE FOR GFR 0.88 MG/DL (0.70-1.30); GLOMERULAR FILTRATION RATE > 60.0 (>42); GLUCOSE, FASTING 139 MG/DL (83-110); MAGNESIUM LEVEL 1.8 MG/DL (1.8-2.4); POTASSIUM SERUM 3.3 MEQ/L (3.5-5.1); SODIUM LEVEL 136 MEQ/L (136-145)
[2016-10-17] MEDS: GABAPENTIN 400 MG CAP PO SCH ×3 (09:25→20:42)
[2016-10-17] MEDS: MAGNESIUM OXIDE 400 MG TAB (MAG-OX) PO SCH ×2 (09:25→20:42)
[2016-10-17] MEDS: PREGABALIN 100 MG CAP (LYRICA) PO SCH ×3 (09:25→20:42)
[2016-10-17] MEDS: MUPIROCIN 2% OINT 22 GM TUBE TOP SCH ×3 (09:25→20:43)
[2016-10-17] MEDS: MYCOPHENOLATE MOFETIL 250 MG CAP (J7517) PO SCH ×2 (09:25→20:43)
[2016-10-17] MEDS ORDERED: POTASSIUM CHLORIDE 10 MEQ SR TABLET PO ONE (10:30)
[2016-10-17] MEDS: ACETAMINOPHEN TAB 650MG DOSE (2X325MG) PO PRN (11:52)
[2016-10-17 14:00] VITALS: BP 117/58
[2016-10-17] MEDS ORDERED: LOPERAMIDE 2 MG CAP PO PRN (14:30)
--- NOTE | 2016-10-17 14:30 | IPNPDOC ---
Subjective Date Seen The patient was seen on 10/17/16. Subjective Chief Complaint/HPI The patient is a 76-year-old male admitted with a reason for visit of Orthostatic Hypotension. Events since last encounter Patient complains of watery diarrhea today , no blood in stool , no abdominal pain , no nausea or vomiting. No chest pain or cough , denied any dizziness of light headedness, facial pain better controlled. Objective Physical Examination General Exam: Positive: Alert, Cooperative, No Acute Distress Eye Exam: Positive: PERRLA, Conjunctiva & lids normal, EOMI, Negative: Sclera icteric ENT Exam: Positive: Atraumatic, Mucous membr. moist/pink, Other ENT (nasal discharge from the left nares. ) Neck Exam: Positive: Supple, Negative: JVD, thyromegaly Chest Exam: Positive: Clear to auscultation Heart Exam: Positive: Rate Normal, Regular Rhythm, Normal S1, Normal S2, Negative: Murmurs, Rubs Telemetry: Positive: No significant arrhythmia Abdomen Exam: Positive: Normal bowel sounds, Soft, Negative: Tenderness, Hepatospenomegaly Extremity Exam: Positive: Normal pulses, Negative: Clubbing, Cyanosis, Edema Skin Exam: Positive: Rash (on the left cheeck discoloration) Assessment /Plan Problems (1) Pneumonia Status: Acute Problem Text: will continue with zosyn and vancomycin. (2) Orthostatic hypotension Status: Resolved Problem Text: due to infection will hold antihypertensives now. will restart when BP starts rising. (3) Post herpetic neuralgia Status: Chronic Problem Text: continue gabapentin and amitriptyline. restart lyrica. (4) GERD (gastroesophageal reflux disease) Status: Chronic (5) Macular degeneration Status: Chronic (6) Myasthenia gravis Status: Chronic Problem Text: continue cellcept and pyridostigmine. (7) Hyperlipidemia Status: Chronic Problem Text: continue statin (8) History of herpes zoster Problem Text: of the face in the trigeminal distribution in august facial lesions have healed but patient has intermittent scabs and discharge from the left nose. Seen by ENT , no herpetic lesions inside the nose. though there is some scabing , viral culture sent form nose. (9) Atrial flutter, paroxysmal Status: Acute Problem Text: seen in the telemetry overnight . Rate around 110. Now in sinus rhythm. (10) Diarrhea Status: Acute Problem Text: GI panel negative most likely antibiotic related will give some imodium. Plan/VTE VTE Prophylaxis Ordered?: Yes VS, I&O, 24H, Fishbone Vital Signs/I&O Vital Signs Date Time Temp Pulse Resp B/P (MAP) Pulse Ox O2 Delivery O2 Flow Rate FiO2 10/17/16 14:00 98.0 82 18 117/58 (77) 94 Room Air I&O- Last 24 Hours up to 6 AM 10/17/16 06:00 Intake Total 2645 ml Output Total 1200 ml Balance 1445 ml Laboratory Data 24H LABS Laboratory Tests 2 10/17/16 05:52: White Blood Count 8.9, Red Blood Count 4.03L, Hemoglobin 12.5L, Hematocrit 37.3L , Mean Corpuscular Volume 92.5, Mean Corpuscular Hemoglobin 30.9, Mean Corpuscular Hemoglobin Concent 33.4, Red Cell Distribution Width 13.8, Platelet Count 222, Neutrophils (%) (Auto) 78.7H, Lymphocytes (%) (Auto) 12.5L, Monocytes (%) (Auto) 4.5, Eosinophils (%) (Auto) 2.5, Basophils (%) (Auto) 0.4, Neutrophils # (Auto) 7.0, Lymphocytes # (Auto) 1.2L, Monocytes # (Auto) 0.4, Eosinophils # (Auto) 0.2, Basophils # (Auto) 0.0, Large Unclassified Cells % 1.4 , Large Unclassified Cells # 0.1, Anion Gap 8, Glomerular Filtration Rate > 60.0 , Blood Urea Nitrogen 5L, Creatinine 0.88, Sodium Level 136, Potassium Level 3.3L, Chloride Level 103, Carbon Dioxide Level 25, Calcium Level 9.0, Magnesium Level 1.8 CBC/BMP Laboratory Tests 10/17/16 05:52 Red Blood Count 4.03 L, Mean Corpuscular Volume 92.5, Mean Corpuscular Hemoglobin 30.9, Mean Corpuscular Hemoglobin Concent 33.4, Red Cell Distribution Width 13.8, Neutrophils (%) (Auto) 78.7 H, Lymphocytes (%) (Auto) 12.5 L, Monocytes (%) (Auto) 4.5, Eosinophils (%) (Auto) 2.5, Basophils (%) ( Auto) 0.4, Neutrophils # (Auto) 7.0, Lymphocytes # (Auto) 1.2 L, Monocytes # ( Auto) 0.4, Eosinophils # (Auto) 0.2, Basophils # (Auto) 0.0, Calcium Level 9.0 Microbiology Microbiology 10/14/16 Blood Culture - Preliminary, Resulted No Growth after 72 hours. All specime... 10/14/16 Blood Culture - Preliminary, Resulted No Growth after 72 hours. All specime... 10/17/16 Gastrointestinal Tract Panel (PCR) - Final, Complete 10/15/16 Gram Stain - Final, Resulted 10/15/16 Sputum Culture - Preliminary, Resulted Yeast Like Organism ALBERT LAL MD Oct 17, 2016 14:30
[2016-10-17 18:00] VITALS: BP_SYST 128; BP_SYST 137; BP_SYST 138; BP_DIAS 74; BP_DIAS 76; BP_DIAS 82
[2016-10-17] MEDS: AMITRIPTYLINE 10 MG TAB PO SCH (20:42)
[2016-10-17] MEDS: PANTOPRAZOLE 40MG TAB (PROTONIX) PO SCH (20:42)
[2016-10-17] MEDS: ATORVASTATIN 20 MG TAB PO SCH (20:42)
[2016-10-17] MEDS: DOXEPIN 25 MG CAP PO SCH (20:42)
[2016-10-17 22:00] VITALS: BP 108/56
[2016-10-18] MEDS: PIPERACILLIN/TAZOBACTAM SOD 3.375 GM in D5W MINI-BAG PLUS 50 ML IV SCH ×2 (00:39→05:46)
[2016-10-18] MEDS: VANCOMYCIN HCL 750 MG, VIAL MATE ADAPTER 1 EACH in D5W 250 ML IV SCH (04:31)
[2016-10-18 05:48] VITALS: BP_SYST 121; BP_SYST 123; BP_SYST 133; BP_DIAS 60; BP_DIAS 61; BP_DIAS 75
[2016-10-18] MEDS ORDERED: GABA-283 PO (06:49)
[2016-10-18] MEDS ORDERED: LEVO500T32 PO (06:49)
[2016-10-18 07:05] LABS: BASO % 0.5 % (0.0-1.0); EOS # 0.3 K/mm3 (0.0-0.50); EOS % 3.4 % (0.0-3.0); LARGE UNSTAINED CELL # 0.1 K/mm3 (0.0-0.4); LARGE UNSTAINED CELL % 1.2 % (0.0-4.0); LYMPH # 1.1 K/mm3 (1.5-4.5); MEAN CORPUSCULAR HEMOGLOBIN 30.5 pg (27.0-33.0); MEAN CORPUSCULAR HGB CONC 32.7 g/dl (32.0-36.5); MEAN CORPUSCULAR VOLUME 93.2 fl (80.0-96.0); MONO # 0.3 K/mm3 (0.0-0.8); MONO % 3.7 % (0.0-5.0); NEUTROPHILS # 7.1 K/mm3 (1.8-7.7); NEUTROPHILS % 79.2 % (36.0-66.0); PLATELET COUNT, AUTOMATED 270 k/mm3 (150-450); RED CELL DISTRIBUTION WIDTH 13.3 % (11.5-14.5); WHITE BLOOD COUNT 8.9 K/mm3 (4.0-10.0)
[2016-10-18 07:18] LABS: ANION GAP 6 MEQ/L (8-16); BLOOD UREA NITROGEN 4 MG/DL (7-18); CALCIUM LEVEL 8.7 MG/DL (8.8-10.2); CARBON DIOXIDE LEVEL 28 MEQ/L (21-32); CHLORIDE LEVEL 101 MEQ/L (98-107); CREATININE FOR GFR 0.93 MG/DL (0.70-1.30); GLOMERULAR FILTRATION RATE > 60.0 (>42); GLUCOSE, FASTING 182 MG/DL (83-110); POTASSIUM SERUM 3.5 MEQ/L (3.5-5.1); SODIUM LEVEL 135 MEQ/L (136-145)
[2016-10-18] MEDS: PREGABALIN 100 MG CAP (LYRICA) PO SCH (09:18)
[2016-10-18] MEDS: GABAPENTIN 400 MG CAP PO SCH (09:18)
[2016-10-18] MEDS: MYCOPHENOLATE MOFETIL 250 MG CAP (J7517) PO SCH (09:18)
[2016-10-18] MEDS: MAGNESIUM OXIDE 400 MG TAB (MAG-OX) PO SCH (09:18)
[2016-10-18] MEDS: MUPIROCIN 2% OINT 22 GM TUBE TOP SCH (09:19)
--- NOTE | 2016-10-20 02:47 | DSES ---
DATE OF ADMISSION: 10/16/2016 DATE OF DISCHARGE: 10/18/2016 PRIMARY CARE PROVIDER: Vikram Linda MD. DISCHARGE DIAGNOSES: 1. Pneumonia. 2. Orthostatic hypotension, improved. 3. Postherpetic neuralgia. 4. Gastroesophageal reflux disease (GERD). 5. Macular degeneration. 6. Myasthenia gravis. 7. Hyperlipidemia. 8. Paroxysmal atrial flutter, it lasted for about 2 minutes. 9. History of herpes zoster in the trigeminal distribution on the left side of the face. 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 He was unsteady when he stood up from his bed and ended up falling backwards onto his bed. Did not have any injuries following his fall. He also was having chills and shaking and was unable to dress himself, so he took his temperature at home which was 100 and then came to the emergency room. In the emergency department (ED), patient was initially noted to have a temperature of 100.4. He was significantly orthostatic positive. Subsequently, he spiked a temperature with a maximum temperature (T-max) of 101.8. Patient's orthostatic symptoms improved with some intravenous (IV) fluids. He had a chest x-ray done which showed multifocal right upper lobe infiltrates, so the patient was admitted for pneumonia. In the hospital, patient was treated with vancomycin and Zosyn in view of his immunosuppressed state and multiple medical issues. Patient responded well to treatment. Hospital course was complicated by some clear watery diarrhea. Gastrointestinal (GI) panel was negative and the diarrhea was felt to be related to antibiotics, which improved after stopping the antibiotics. Patient also had lots of pain due to postherpetic neuralgia in his left side of the face. His gabapentin dosage was adjusted. His Lyrica, amitriptyline and doxepin were continued. Patient initially was admitted to a telemetry unit and review of telemetry showed a brief period of atrial flutter, about 2 minutes, on the first day of admission. Patient was asymptomatic. Because of his very brief period, the patient was not started on any anticoagulation. Further review of telemetry did not reveal any recurrence of the rhythm. Patient did say that he had an episode of fall when he lost his strength in his leg followed by confusion and frothing from the mouth as described by the for which the patient is following with neurology and has been ordered an electroencephalogram (EEG); however, the patient said because of his severe pain in his scalp and forehead he will not be able to do the EEG at this point. On the day of discharge, patient's symptoms had resolved. Patient's vital signs were stable and was functioning at baseline. Patient was discharged home in stable condition. PHYSICAL EXAMINATION: VITAL SIGNS: Temperature 97.3, pulse 99, respiratory rate 20, blood pressure 120/61, pulse oximetry 96% in room air. GENERAL: Patient awake, alert, oriented times three, sitting up in bed in no acute distress. HEENT: Normocephalic, atraumatic. Moist mucous membranes. Anicteric eyes. CHEST: Clear to auscultation. CARDIOVASCULAR: S1, S2 regular. No rub, murmur or gallop. ABDOMEN: Soft, nontender, bowel sounds present. EXTREMITIES: No edema. LABORATORY DATA: WBC 8.9, hemoglobin 12.5, platelets 270. Sodium 135, potassium 3.5, chloride 101, bicarbonate 28, BUN 4, creatinine 0.9, glucose 182, calcium 8.7. Blood cultures were negative after 72 hours. GI panel negative. Sputum gram stain showed few yeast-like organisms, gram-positive cocci in pairs few, gram-positive rods few. DISPOSITION: Patient is discharged home in a stable condition. DISCHARGE INSTRUCTIONS: Patient to followup with primary care provider in 1 week. Patient to followup with neurology as outpatient schedule. Regular diet. Activity as tolerated.
== END 2016-10-18 11:04 | disposition home or self-care (01) | DRG 194 ==
LOC: EDBD 09:31 → M ED 10:07 → M ED INP 14:19 → M PCU 15:18 → M MSPAV 10-16 14:14 → OBSVTOIN 10-16 15:00
PROVIDERS: ADMIT Hospitalist; ATTEND Internal Medicine Nephrology
DX: J18.9 Pneumonia, unspecified organism (principal); B02.22 Postherpetic trigeminal neuralgia; I48.92 Unspecified atrial flutter; G70.00 Myasthenia gravis without (acute) exacerbation; I95.1 Orthostatic hypotension; F17.228 Nicotine dependence, chewing tobacco, with other nicotine-induced disorders; K21.9 Gastro-esophageal reflux disease without esophagitis; R19.7 Diarrhea, unspecified; E78.5 Hyperlipidemia, unspecified; H35.30 Unspecified macular degeneration; Z79.899 Other long term (current) drug therapy; Y95 Nosocomial condition; Z82.49 Family history of ischemic heart disease and other diseases of the circulatory system

== ENCOUNTER → 2016-10-15 | Outpatient (REF) | payer MEDICARE, BC ==
[~2016-10-15] MED LIST changes: +CELL500T PO; +GABA600T PO; +LEVO500T32 PO; +LYRI100C10 PO
== END ==
LOC: M LAB REF 16:37
PROVIDERS: ATTEND Otolaryngology
DX: J32.0 Chronic maxillary sinusitis (principal)

== ENCOUNTER → 2016-10-25 | Outpatient (REF) | payer MEDICARE, BC | LOC: M LAB REF 09:35 | PROVIDERS: ATTEND Family Medicine | DX: J18.8 Other pneumonia, unspecified organism (principal) ==

== ENCOUNTER 2016-11-30 19:55 | Emergency (ER) | payer MEDICARE, BC ==
[~2016-11-30] VITALS: Ht 175.3 cm; Wt 85.5 kg
[~2016-11-30 19:55] MED LIST changes: +CLIN150C14 PO; -CLIN1CAP5 PO; +LEVO500T3 PO; -LEVO500T32 PO; -LYRI100C10 PO; -PERC10TA17 PO; +PERC10TA26 PO; +PERC5TAB12 PO; -PERC5TAB6 PO; +PREG100CA PO; -VALA500T PO; +VALA500T2 PO
[2016-11-30] MEDS ORDERED: BENZ200C53 PO (20:22)
[2016-11-30] MEDS ORDERED: AZIT-12 PO (20:22)
[2016-11-30] MEDS ORDERED: GABA-283 PO (20:22)
[2016-11-30] MEDS ORDERED: ACETAMINOPHEN 325 MG TAB PO ONE (20:45)
[2016-11-30] MEDS ORDERED: NS 500 ML IV ONE (20:45)
[2016-11-30 20:54] LABS: VENOUS BASE EXCESS 0.5 (-2.0-2.0); VENOUS O2 SATURATION 84.9 % (60.0-80.0); VENOUS PARTIAL PRESSURE O2 49.8 mmHg (30.0-50.0); VENOUS STANDARD HCO3 24.6 MEQ/L; VENOUS TOTAL CO2 27.1 MEQ/L (24.0-28.0)
[2016-11-30 20:56] LABS: BASO % 0.2 % (0.0-1.0); EOS # 0.1 K/mm3 (0.0-0.50); EOS % 1.2 % (0.0-3.0); LARGE UNSTAINED CELL # 0.1 K/mm3 (0.0-0.4); LARGE UNSTAINED CELL % 0.9 % (0.0-4.0); LYMPH # 0.8 K/mm3 (1.5-4.5); LYMPH % 7.9 % (24.0-44.0); MEAN CORPUSCULAR HEMOGLOBIN 29.9 pg (27.0-33.0); MEAN CORPUSCULAR HGB CONC 33.2 g/dl (32.0-36.5); MONO # 0.5 K/mm3 (0.0-0.8); MONO % 5.4 % (0.0-5.0); NEUTROPHILS # 7.9 K/mm3 (1.8-7.7); NEUTROPHILS % 84.3 % (36.0-66.0); PLATELET COUNT, AUTOMATED 190 k/mm3 (150-450); RED CELL DISTRIBUTION WIDTH 13.4 % (11.5-14.5); WHITE BLOOD COUNT 9.4 K/mm3 (4.0-10.0)
[2016-11-30 21:10] LABS: ANION GAP 7 MEQ/L (8-16); BLOOD UREA NITROGEN 13 MG/DL (7-18); CALCIUM LEVEL 8.9 MG/DL (8.8-10.2); CARBON DIOXIDE LEVEL 28 MEQ/L (21-32); CHLORIDE LEVEL 106 MEQ/L (98-107); CREATININE FOR GFR 1.08 MG/DL (0.70-1.30); GLOMERULAR FILTRATION RATE > 60.0 (>42); GLUCOSE, FASTING 129 MG/DL (83-110); POTASSIUM SERUM 3.7 MEQ/L (3.5-5.1); SODIUM LEVEL 141 MEQ/L (136-145)
[2016-11-30] MEDS ORDERED: IPRATROPIUM 0.5MG/ALBUTEROL 2.5MG INH SOL UD 3ML (DUONEB)(J7620) NEB ONE (21:15)
[2016-11-30] MEDS ORDERED: ROBISYP7 PO (21:57)
[2016-11-30 22:11] VITALS: BP 125/64
--- NOTE | 2016-12-01 08:13 | REP ---
REASON: Dyspnea. COMPARISON: Multiple, the latest 10/14/2016. There is mild hilar fullness, status quo. The heart is not enlarged and the pleural angles are sharp. There are no patchy parenchymal opacities or pleural effusions. The osseous structures are stable and intact. IMPRESSION: No acute cardiopulmonary disease. Stable appearing chronic changes. Signed by Tra Esquivel DO 12/01/2016 10:37 A
== END 2016-11-30 22:13 | disposition home or self-care (01) ==
LOC: M ED 21:01
DX: J20.9 Acute bronchitis, unspecified (principal); E78.4 Other hyperlipidemia; K21.9 Gastro-esophageal reflux disease without esophagitis; Z87.891 Personal history of nicotine dependence

== ENCOUNTER → 2016-12-03 | Outpatient (REF) | payer MEDICARE, BC ==
[~2016-12-03] MED LIST changes: +AZIT-12 PO; +BENZ200C53 PO; +LEVA1TAB2 PO; +ROBISYP7 PO
[2016-12-03 19:54] LABS: ALBUMIN 3.5 GM/DL (3.2-5.2); ALBUMIN/GLOBULIN RATIO 1.09 (1.00-1.93); ALKALINE PHOSPHATASE 79 U/L (45-117); ALT/SGPT 22 U/L (12-78); ANION GAP 10 MEQ/L (8-16); AST/SGOT 12 U/L (15-37); BILIRUBIN,TOTAL 0.5 MG/DL (0.2-1.0); BLOOD UREA NITROGEN 11 MG/DL (7-18); CALCIUM LEVEL 9.1 MG/DL (8.8-10.2); CARBON DIOXIDE LEVEL 27 MEQ/L (21-32); CHLORIDE LEVEL 104 MEQ/L (98-107); GLOMERULAR FILTRATION RATE > 60.0 (>42); GLUCOSE, FASTING 97 MG/DL (83-110); SODIUM LEVEL 141 MEQ/L (136-145); TOTAL PROTEIN 6.7 GM/DL (6.4-8.2)
== END ==
LOC: M LABNEURO 17:55
PROVIDERS: ATTEND Psychiatry & Neurology Neurology
DX: G70.00 Myasthenia gravis without (acute) exacerbation (principal)

== ENCOUNTER 2017-02-05 15:36 | Inpatient (IN) | payer MEDICARE, BC ==
[~2017-02-05] VITALS: Ht 175.3 cm; Wt 89.0 kg
[~2017-02-05 15:36] MED LIST changes: -LEVA1TAB2 PO
[2017-02-05] MEDS ORDERED: NS 1,000 ML IV ONE (17:00)
[2017-02-05] MEDS ORDERED: ACETAMINOPHEN 325 MG TAB PO ONE (17:00)
[2017-02-05] MEDS ORDERED: AZITHROMYCIN INJ 500 MG, VIAL MATE ADAPTER 1 EACH in D5W 250 ML IV ONE (17:30)
[2017-02-05] MEDS ORDERED: cefTRIAXone SOD 1 GM in D5W 50 ML IV ONE (17:30)
--- NOTE | 2017-02-05 17:39 | REP ---
Chest x-ray: Two views. History: Cough. Right rib pain. Comparison chest x-ray: November 30, 2016. Findings: There is a new infiltrate with discoid atelectasis in the distribution of the right middle lobe today, most consistent with pneumonia. The left lung remains clear. There is some volume loss in the right hemithorax, mild in degree. There is no evidence of pleural effusion. No bony destructive lesion is seen. Heart size is normal. The aorta is somewhat tortuous. Impression: New infiltrate with plate-like atelectasis right middle lobe consistent with pneumonia. Signed by Prateek Trammell MD 02/06/2017 08:17 A
[2017-02-05 18:02] LABS: BASO % 0.2 % (0.0-1.0); EOS % 0.3 % (0.0-3.0); IMMATURE GRANULOCYTE % 0.4 % (0-0); LYMPH # 1.1 10^3/uL (1.5-4.5); LYMPH % 10.8 % (24.0-44.0); MEAN CORPUSCULAR HGB CONC 32.9 g/dl (32.0-36.5); MONO % 10.3 % (0.0-5.0); NEUTROPHILS # 7.8 10^3/uL (1.8-7.7); PLATELET COUNT, AUTOMATED 217 10^3/uL (150-450); RED CELL DISTRIBUTION WIDTH 12.7 % (11.5-14.5); WHITE BLOOD COUNT 9.9 10^3/uL (4.0-10.0)
[2017-02-05 18:17] LABS: ADD MORPHOLOGY? NO
[2017-02-05 18:47] LABS: ALBUMIN/GLOBULIN RATIO 1.25 (1.00-1.93); ALKALINE PHOSPHATASE 90 U/L (45-117); ALT/SGPT 18 U/L (12-78); ANION GAP 6 MEQ/L (8-16); AST/SGOT 14 U/L (15-37); BILIRUBIN,DIRECT 0.2 MG/DL (0.0-0.2); BILIRUBIN,TOTAL 0.8 MG/DL (0.2-1.0); BLOOD UREA NITROGEN 13 MG/DL (7-18); CALCIUM LEVEL 9.4 MG/DL (8.8-10.2); CARBON DIOXIDE LEVEL 29 MEQ/L (21-32); CHLORIDE LEVEL 102 MEQ/L (98-107); CREATININE FOR GFR 1.04 MG/DL (0.70-1.30); GLOMERULAR FILTRATION RATE > 60.0 (>42); GLUCOSE, FASTING 102 MG/DL (83-110); SODIUM LEVEL 137 MEQ/L (136-145); TOTAL PROTEIN 7.2 GM/DL (6.4-8.2)
--- NOTE | 2017-02-05 20:47 | HPEPDOC ---
General Date of Admission 02-05-17 Primary Care Physician: JASMINA RICHARDS MD Attending Physician: CARL ECKERT MD Chief Complaint The patient is a 76-year-old male admitted with a reason for visit of (R) Rib Pain. Source: Patient Severity: Moderate Associated Symptoms: Cough, Fever History of Present Illness 76 year old male with past medical history of myasthenia gravis, hyperlipidemia , GERD and macular degeneration who presents to ED after he woke this morning to his ribs hurting on the right side. The pt. states he had helped a neighbor move a boat into his garage one day ago and thought he may have bruised his ribs at that time, he states that the pain was worsened with coughing, achy in nature and nothing seemed to make it better or worse. The pt. admits to coughing more over the past few days but states he hasn't gotten anything up, admits to feeling a bit more tired and like he had a fever but didn't take it at home. He denied muscle ache, chills, n/v, abdominal pain, diarrhea, constipation, pain with urination or defecation nor blood in stool or urine. Denies change in vision or headaches. States he was recently in the hospital this past November with bronchitis and this past October with pneumonia and dizzyness. Denies travel outside of the country or recent sick contacts. Denies change in appetite nor change in weight. Home Medications Scheduled ([facility]) 1 Cap Cap, 2 CAP PO DAILY, (Reported) Atorvastatin Calcium (Atorvastatin Calcium) 20 Mg Tab, 20 MG PO QHS, (Reported) Doxepin HCl (Doxepin HCl) 25 Mg Cap, 25 MG PO QHS, (Reported) Esomeprazole Magnesium Trihydr (Nexium) 40 Mg Cap, 40 MG PO QHS, (Reported) Mycophenolate Mofetil (Cellcept) 500 Mg Tab, 1,000 MG PO BID, (Reported) Pregabalin (Lyrica) 100 Mg Cap, 150 MG PO BID, (Reported) Scheduled PRN Pyridostigmine [place] (Pyridostigmine [place]) 60 Mg Tab, 60 MG PO TID PRN for PAIN, (Reported) Allergies Coded Allergies: Corticosteroids (Verified Adverse Reaction, Unknown, Unable to have because of Myasthenia Gravis medications, 11/30/16) Past Medical History Medical History myasthenia gravis hyperlipidemia GERD macular degeneration post herpetic neuralgia Surgical History right rotator cuff surgery right knee arthroplasty umbilical hernia repair Family History Significant Family History: No pertinent family hx Social History * Smoker: Denies, former Smoker (states quit 25 years ago, used to smoke 2 PPD since he was a teen) Alcohol: Denies Drugs: denies Psychosocial History: No pertinent psych hx retired lives at home w/his Review of Symptoms Constitutional: Reports: Fever, Malaise, Fatigue, Denies: Chills, Night Sweats, Weakness, Weight Loss Eyes: Denies: Pain, Vision change ENT: Denies: Head Aches Skin: Denies: Rash, Lesions, Jaundice, Bruising Pulmonary: Reports: Cough, Pleuritic Chest Pain, Denies: Dyspnea Cardiovascular: Reports: Chest Pain (right chest), Denies: Palpitations, Orthopnea Gastrointestinal: Denies: Nausea, Vomiting, Abdominal Pain, Diarrhea, Constipation, Melena Genitourinary: Denies: Dysuria Hematologic: Denies: Bruising Neurological: Denies: Weakness, Numbness, Change in speech Psych: Reports: Mood Normal Physical Examination General Exam: Positive: Alert, Cooperative, No Acute Distress Eye Exam: Positive: Conjunctiva & lids normal, EOMI, Negative: Sclera icteric, Ptosis ENT Exam: Positive: Atraumatic, Mucous membr. moist/pink, Pharynx Normal, Tongue Midline, Nares Patent, Negative: Pharyngeal Edema Neck Exam: Positive: Supple, Negative: JVD, thyromegaly Chest Exam: Positive: Other (end exp wheezing rll), Negative: Clear to auscultation, Rales, Rhonchi, Wheezing, Diminished Heart Exam: Positive: Rate Normal Telemetry: Positive: No significant arrhythmia Abdomen Exam: Positive: Normal bowel sounds, Soft, Negative: Tenderness, Hepatospenomegaly Extremity Exam: Negative: Clubbing, Cyanosis, Edema, Normal pulses Skin Exam: Negative: Rash, Breakdown Psych Exam: Positive: Mental status NL Vital Signs Vital Signs Date Time Temp Pulse Resp B/P (MAP) Pulse Ox O2 Delivery O2 Flow Rate FiO2 02/05/17 20:02 99.3 99 18 146/90 (108) 92 Room Air Laboratory Data Labs 24H Laboratory Tests 2 02/05/17 17:45: Anion Gap 6L, Glomerular Filtration Rate > 60.0, Calcium Level 9.4, Aspartate Amino Transf (AST/SGOT) 14L, Alanine Aminotransferase (ALT/SGPT) 18, Alkaline Phosphatase 90, Total Bilirubin 0.8, Direct Bilirubin 0.2, C-Reactive Protein, Quantitative 4.84H, Total Protein 7.2, Albumin 4.0, Albumin/Globulin Ratio 1.25 , Lipase 165 02/05/17 17:46: Immature Granulocyte % (Auto) 0.4H, White Blood Count 9.9, Red Blood Count 5.18 , Hemoglobin 15.0, Hematocrit 45.6, Mean Corpuscular Volume 88.0, Mean Corpuscular Hemoglobin 29.0, Mean Corpuscular Hemoglobin Concent 32.9, Red Cell Distribution Width 12.7, Platelet Count 217, Neutrophils (%) (Auto) 78.0H, Lymphocytes (%) (Auto) 10.8L, Monocytes (%) (Auto) 10.3H, Eosinophils (%) (Auto ) 0.3, Basophils (%) (Auto) 0.2, Neutrophils # (Auto) 7.8H, Lymphocytes # (Auto ) 1.1L, Monocytes # (Auto) 1.0H, Eosinophils # (Auto) 0.0, Basophils # (Auto) 0.0, Immature Granulocyte # (Auto) 0.0, Nucleated Red Blood Cells % (auto) 0.0, Lactic Acid Level 1.0 02/05/17 19:10: Urine Appearance HAZY, Urine Color YELLOW, Urine pH 5.0, Urine Specific [place] 1.025, Urine Protein 1+H, Urine Glucose (UA) NEGATIVE, Urine Ketones TRACEH, Urine Urobilinogen 0.2, Urine Bilirubin NEGATIVE, Urine Leukocyte Esterase NEGATIVE, Urine Blood NEGATIVE, Urine Nitrite NEGATIVE, Urine WBC (Auto) 1, Urine RBC (Auto) 0, Urine Hyaline Casts (Auto) 0, Urine Bacteria (Auto) NEGATIVE , Urine Squamous Epithelial Cells 0, Urine Mucus (Auto) MODERATE, Urine Sperm ( Auto) CBC/BMP Laboratory Tests 02/05/17 17:45 02/05/17 17:46 Red Blood Count 5.18, Mean Corpuscular Volume 88.0, Mean Corpuscular Hemoglobin 29.0, Mean Corpuscular Hemoglobin Concent 32.9, Red Cell Distribution Width 12.7 , Neutrophils (%) (Auto) 78.0 H, Lymphocytes (%) (Auto) 10.8 L, Monocytes (%) ( Auto) 10.3 H, Eosinophils (%) (Auto) 0.3, Basophils (%) (Auto) 0.2, Neutrophils # (Auto) 7.8 H, Lymphocytes # (Auto) 1.1 L, Monocytes # (Auto) 1.0 H, Eosinophils # (Auto) 0.0, Basophils # (Auto) 0.0 Microbiology Microbiology 02/05/17 Blood Culture, Received Pending 02/05/17 Blood Culture, Received Pending 02/05/17 Urine Culture, Received Pending Problems (1) Pneumonia Status: Acute Response to Treatment: Stable Problem Text: likely HCAP CXR showed: New infiltrate with plate-like atelectasis right middle lobe consistent with pneumonia. Pt does not have a white count and temperature 100.2 F since pt. was recently admitted in October for pneumonia and then came to ED in November 2016 for bronchitis, will tx. as HCAP received ceftriaxone and azithromycin in ED blood and sputum cx. pending continue abx inpt (2) Myasthenia gravis Status: Chronic Response to Treatment: Stable Problem Text: stable c/w home medications (3) GERD (gastroesophageal reflux disease) Status: Chronic Response to Treatment: Stable Problem Text: stable c/w home medications (4) History of herpes zoster Status: Chronic Response to Treatment: Stable Problem Text: stable c/w gabapentin therapy (5) DVT prophylaxis Status: Acute Response to Treatment: Stable Problem Text: scds Plan / VTE VTE Prophylaxis Ordered?: Yes GME ATTESTATION E ATTESTATION My preceptor for this patient encounter was physically present in the building during the encounter and was fully available. As needed, all aspects of the patient interview, examination, medical decision making process, and medical care plan development were reviewed and approved by the preceptor. Preceptor is aware and concurs with the plan as stated in the body of this note and will attest to such by his/her cosignature. GME ATTESTATION E ATTESTATION My preceptor for this patient encounter was physically present in the building during the encounter and was fully available. As needed, all aspects of the patient interview, examination, medical decision making process, and medical care plan development were reviewed and approved by the preceptor. Preceptor is aware and concurs with the plan as stated in the body of this note and will attest to such by his/her cosignature. ARYAN PATRICIA DO Feb 05, 2017 20:47 JALYN AMADOR MD Feb 06, 2017 07:40
[2017-02-05] MEDS: NS 1,000 ML IV SCH (21:00)
[2017-02-05] MEDS ORDERED: PYRIDOSTIGMINE 60 MG TAB PO PRN (21:00)
[2017-02-05 23:19] VITALS: BP 165/76
[2017-02-06] MEDS: ATORVASTATIN 20 MG TAB PO SCH ×2 (00:09→20:48)
[2017-02-06] MEDS: DOXEPIN 25 MG CAP PO SCH ×2 (00:09→20:48)
[2017-02-06] MEDS: MYCOPHENOLATE MOFETIL 250 MG CAP (J7517) PO SCH ×3 (00:09→20:48)
[2017-02-06] MEDS: PANTOPRAZOLE 40MG TAB (PROTONIX) PO SCH ×2 (00:10→20:48)
[2017-02-06] MEDS: PREGABALIN 75 MG CAP(LYRICA) PO SCH ×3 (00:10→20:48)
[2017-02-06] MEDS ORDERED: MORPHINE 2 MG/ML 1ML SYRINGE IV ONE (00:30)
[2017-02-06 06:00] VITALS: BP 106/53
[2017-02-06] MEDS: cefTRIAXone SOD 1 GM in D5W 50 ML IV SCH (06:04)
[2017-02-06] MEDS: NS 1,000 ML IV SCH ×2 (06:11→20:48)
[2017-02-06 07:02] LABS: BASO % 0.3 % (0.0-1.0); EOS # 0.1 10^3/uL (0.0-0.50); EOS % 0.6 % (0.0-3.0); IMMATURE GRANULOCYTE % 0.8 % (0-0); LYMPH # 1.4 10^3/uL (1.5-4.5); LYMPH % 17.7 % (24.0-44.0); MEAN CORPUSCULAR HEMOGLOBIN 28.6 pg (27.0-33.0); MEAN CORPUSCULAR HGB CONC 32.6 g/dl (32.0-36.5); MEAN CORPUSCULAR VOLUME 87.9 fl (80.0-96.0); MONO # 0.9 10^3/uL (0.0-0.8); MONO % 11.7 % (0.0-5.0); NEUTROPHILS # 5.4 10^3/uL (1.8-7.7); NEUTROPHILS % 68.9 % (36.0-66.0); PLATELET COUNT, AUTOMATED 173 10^3/uL (150-450); RED CELL DISTRIBUTION WIDTH 12.9 % (11.5-14.5); WHITE BLOOD COUNT 7.8 10^3/uL (4.0-10.0)
[2017-02-06 07:25] LABS: ANION GAP 6 MEQ/L (8-16); BLOOD UREA NITROGEN 13 MG/DL (7-18); CALCIUM LEVEL 8.5 MG/DL (8.8-10.2); CARBON DIOXIDE LEVEL 28 MEQ/L (21-32); CHLORIDE LEVEL 107 MEQ/L (98-107); CREATININE FOR GFR 0.91 MG/DL (0.70-1.30); GLOMERULAR FILTRATION RATE > 60.0 (>42); GLUCOSE, FASTING 99 MG/DL (83-110); POTASSIUM SERUM 3.6 MEQ/L (3.5-5.1); SODIUM LEVEL 141 MEQ/L (136-145)
[2017-02-06] MEDS: AZITHROMYCIN INJ 500 MG, VIAL MATE ADAPTER 1 EACH in D5W 250 ML IV SCH (08:25)
[2017-02-06 10:00] VITALS: BP 109/68
[2017-02-06 14:00] VITALS: BP 114/59
[2017-02-06] MEDS: ACETAMINOPHEN TAB 650MG DOSE (2X325MG) PO PRN (14:52)
--- NOTE | 2017-02-06 14:52 | REP ---
CT of the chest without IV contrast: Comparison is the plain film PA and lateral study dated 02/05/2017. There is discoid atelectasis in the right middle lobe. There is an infiltrate in the anterior and lateral basilar segments of the right lower lobe. There is a small right pleural effusion. The left lung is clear. There is no mediastinal or axillary adenopathy. The study is insensitive for hilar adenopathy in the absence of IV contrast. The thoracic aorta is unremarkable. Cardiac size is normal. The visualized upper abdominal contents are unremarkable. Impression: Discoid atelectasis in the right middle lobe. Infiltrate in the anterior and lateral basilar segments of the right lower lobe. Small right pleural effusion. Signed by Soren Piper MD 02/06/2017 02:44 P
--- NOTE | 2017-02-06 16:12 | IPNPDOC ---
Subjective Date Seen The patient was seen on 02/06/17. Subjective Chief Complaint/HPI Patient seen and examined at the bedside today. States that his respiratory status has improved, but notes that he is still coughing nonproductively. Denies any other acute complaints at this time. Objective Physical Examination General Exam: Positive: Alert, Cooperative, No Acute Distress ENT Exam: Positive: Atraumatic, Mucous membr. moist/pink Neck Exam: Negative: JVD Chest Exam: Positive: Diminished, Negative: Rales Heart Exam: Positive: Rate Normal, Normal S1, Normal S2 Abdomen Exam: Positive: Soft, Negative: Tenderness Extremity Exam: Negative: Tenderness, Swelling Psych Exam: Positive: Oriented x 3 Assessment /Plan Problems (1) Pneumonia Status: Acute Response to Treatment: Improving Problem Text: Likely 2/2 Community Acquired Pneumonia CXR noted, CT Chest also noted from this afternoon WBC wnl, fever curve down trending Cont ceftriaxone and azithromycin Blood and sputum cx. pending Respiratory panel pending We will cont to monitor the patient's clinical condition (2) Myasthenia gravis Status: Chronic Response to Treatment: Stable Problem Text: Cont current medications (3) GERD (gastroesophageal reflux disease) Status: Chronic Response to Treatment: Stable Problem Text: Cont current medications (4) History of herpes zoster Status: Chronic Response to Treatment: Stable Problem Text: stable c/w gabapentin therapy (5) DVT prophylaxis Status: Acute Response to Treatment: Stable Problem Text: scds Plan/VTE VTE Prophylaxis Ordered?: Yes VS, I&O, 24H, [facility] Vital Signs/I&O Vital Signs Date Time Temp Pulse Resp B/P (MAP) Pulse Ox O2 Delivery O2 Flow Rate FiO2 02/06/17 10:00 100.4 98 18 109/68 (82) 92 Room Air I&O- Last 24 Hours up to 6 AM 02/07/17 05:59 Intake Total 370 ml Output Total 200 ml Balance 170 ml Laboratory Data 24H LABS Laboratory Tests 2 02/05/17 17:45: Anion Gap 6L, Glomerular Filtration Rate > 60.0, Calcium Level 9.4, Aspartate Amino Transf (AST/SGOT) 14L, Alanine Aminotransferase (ALT/SGPT) 18, Alkaline Phosphatase 90, Total Bilirubin 0.8, Direct Bilirubin 0.2, C-Reactive Protein, Quantitative 4.84H, Total Protein 7.2, Albumin 4.0, Albumin/Globulin Ratio 1.25 , Lipase 165 02/05/17 17:46: Immature Granulocyte % (Auto) 0.4H, White Blood Count 9.9, Red Blood Count 5.18 , Hemoglobin 15.0, Hematocrit 45.6, Mean Corpuscular Volume 88.0, Mean Corpuscular Hemoglobin 29.0, Mean Corpuscular Hemoglobin Concent 32.9, Red Cell Distribution Width 12.7, Platelet Count 217, Neutrophils (%) (Auto) 78.0H, Lymphocytes (%) (Auto) 10.8L, Monocytes (%) (Auto) 10.3H, Eosinophils (%) (Auto ) 0.3, Basophils (%) (Auto) 0.2, Neutrophils # (Auto) 7.8H, Lymphocytes # (Auto ) 1.1L, Monocytes # (Auto) 1.0H, Eosinophils # (Auto) 0.0, Basophils # (Auto) 0.0, Immature Granulocyte # (Auto) 0.0, Nucleated Red Blood Cells % (auto) 0.0, Lactic Acid Level 1.0 02/05/17 19:10: Urine Appearance HAZY, Urine Color YELLOW, Urine pH 5.0, Urine Specific [place] 1.025, Urine Protein 1+H, Urine Glucose (UA) NEGATIVE, Urine Ketones TRACEH, Urine Urobilinogen 0.2, Urine Bilirubin NEGATIVE, Urine Leukocyte Esterase NEGATIVE, Urine Blood NEGATIVE, Urine Nitrite NEGATIVE, Urine WBC (Auto) 1, Urine RBC (Auto) 0, Urine Hyaline Casts (Auto) 0, Urine Bacteria (Auto) NEGATIVE , Urine Squamous Epithelial Cells 0, Urine Mucus (Auto) MODERATE, Urine Sperm ( Auto) 02/06/17 06:37: Anion Gap 6L, Glomerular Filtration Rate > 60.0, Calcium Level 8.5L, Immature Granulocyte % (Auto) 0.8H, White Blood Count 7.8, Red Blood Count 4.54, Hemoglobin 13.0#L, Hematocrit 39.9L, Mean Corpuscular Volume 87.9, Mean Corpuscular Hemoglobin 28.6, Mean Corpuscular Hemoglobin Concent 32.6, Red Cell Distribution Width 12.9, Platelet Count 173, Neutrophils (%) (Auto) 68.9H, Lymphocytes (%) (Auto) 17.7L, Monocytes (%) (Auto) 11.7H, Eosinophils (%) (Auto ) 0.6, Basophils (%) (Auto) 0.3, Neutrophils # (Auto) 5.4, Lymphocytes # (Auto) 1.4L, Monocytes # (Auto) 0.9H, Eosinophils # (Auto) 0.1, Basophils # (Auto) 0.0 , Immature Granulocyte # (Auto) 0.1H, Nucleated Red Blood Cells % (auto) 0.0, Blood Urea Nitrogen 13, Creatinine 0.91, Sodium Level 141, Potassium Level 3.6, Chloride Level 107, Carbon Dioxide Level 28 CBC/BMP Laboratory Tests 02/05/17 17:45 02/05/17 17:46 Red Blood Count 5.18, Mean Corpuscular Volume 88.0, Mean Corpuscular Hemoglobin 29.0, Mean Corpuscular Hemoglobin Concent 32.9, Red Cell Distribution Width 12.7 , Neutrophils (%) (Auto) 78.0 H, Lymphocytes (%) (Auto) 10.8 L, Monocytes (%) ( Auto) 10.3 H, Eosinophils (%) (Auto) 0.3, Basophils (%) (Auto) 0.2, Neutrophils # (Auto) 7.8 H, Lymphocytes # (Auto) 1.1 L, Monocytes # (Auto) 1.0 H, Eosinophils # (Auto) 0.0, Basophils # (Auto) 0.0 02/06/17 06:37 Red Blood Count 4.54, Mean Corpuscular Volume 87.9, Mean Corpuscular Hemoglobin 28.6, Mean Corpuscular Hemoglobin Concent 32.6, Red Cell Distribution Width 12.9 , Neutrophils (%) (Auto) 68.9 H, Lymphocytes (%) (Auto) 17.7 L, Monocytes (%) ( Auto) 11.7 H, Eosinophils (%) (Auto) 0.6, Basophils (%) (Auto) 0.3, Neutrophils # (Auto) 5.4, Lymphocytes # (Auto) 1.4 L, Monocytes # (Auto) 0.9 H, Eosinophils # (Auto) 0.1, Basophils # (Auto) 0.0, Calcium Level 8.5 L Microbiology Microbiology 02/05/17 Blood Culture, Received Pending 02/05/17 Blood Culture, Received Pending 02/06/17 Respiratory Virus Panel (PCR) ([facility]), Received Pending 02/05/17 Urine Culture - Final, Complete CARL ECKERT MD Feb 06, 2017 16:12
[2017-02-06 20:00] VITALS: BP 106/60
[2017-02-07 02:00] VITALS: BP 118/60
[2017-02-07] MEDS: NS 1,000 ML IV SCH ×3 (05:28→17:27)
[2017-02-07] MEDS: cefTRIAXone SOD 1 GM in D5W 50 ML IV SCH (05:28)
[2017-02-07 06:00] VITALS: BP 117/62
[2017-02-07 06:44] LABS: BASO % 0.3 % (0.0-1.0); EOS # 0.1 10^3/uL (0.0-0.50); EOS % 0.8 % (0.0-3.0); IMMATURE GRANULOCYTE % 0.6 % (0-0); LYMPH # 1.4 10^3/uL (1.5-4.5); LYMPH % 15.9 % (24.0-44.0); MEAN CORPUSCULAR HEMOGLOBIN 28.9 pg (27.0-33.0); MEAN CORPUSCULAR HGB CONC 32.9 g/dl (32.0-36.5); MEAN CORPUSCULAR VOLUME 87.8 fl (80.0-96.0); MONO # 0.9 10^3/uL (0.0-0.8); MONO % 10.6 % (0.0-5.0); NEUTROPHILS # 6.3 10^3/uL (1.8-7.7); NEUTROPHILS % 71.8 % (36.0-66.0); PLATELET COUNT, AUTOMATED 175 10^3/uL (150-450); RED CELL DISTRIBUTION WIDTH 12.7 % (11.5-14.5); WHITE BLOOD COUNT 8.8 10^3/uL (4.0-10.0)
[2017-02-07 07:01] LABS: ANION GAP 10 MEQ/L (8-16); BLOOD UREA NITROGEN 9 MG/DL (7-18); CALCIUM LEVEL 8.2 MG/DL (8.8-10.2); CARBON DIOXIDE LEVEL 25 MEQ/L (21-32); CHLORIDE LEVEL 106 MEQ/L (98-107); CREATININE FOR GFR 0.91 MG/DL (0.70-1.30); GLOMERULAR FILTRATION RATE > 60.0 (>42); GLUCOSE, FASTING 104 MG/DL (83-110); POTASSIUM SERUM 3.7 MEQ/L (3.5-5.1); SODIUM LEVEL 141 MEQ/L (136-145)
[2017-02-07] MEDS: PREGABALIN 75 MG CAP(LYRICA) PO SCH ×2 (08:43→20:18)
[2017-02-07] MEDS: MYCOPHENOLATE MOFETIL 250 MG CAP (J7517) PO SCH ×2 (08:43→20:18)
[2017-02-07] MEDS: AZITHROMYCIN INJ 500 MG, VIAL MATE ADAPTER 1 EACH in D5W 250 ML IV SCH (08:43)
[2017-02-07] MEDS ORDERED: INFLUENZA VIRUS VACCINE HIGH DOSE 0.5 ML SYRINGE (90662) IM ONE (09:00)
[2017-02-07 10:00] VITALS: BP 91/66
[2017-02-07 14:00] VITALS: BP 103/72
[2017-02-07] MEDS: ACETAMINOPHEN TAB 650MG DOSE (2X325MG) PO PRN (14:39)
--- NOTE | 2017-02-07 14:41 | IPNPDOC ---
Subjective Date Seen The patient was seen on 02/07/17. Subjective Chief Complaint/HPI Patient seen and examined at the bedside. Objective Physical Examination General Exam: Positive: Alert, Cooperative, No Acute Distress ENT Exam: Positive: Atraumatic, Mucous membr. moist/pink Neck Exam: Negative: JVD, thyromegaly Chest Exam: Positive: Diminished, Negative: Rales, Rhonchi, Wheezing Heart Exam: Positive: Rate Normal Abdomen Exam: Positive: Soft, Negative: Tenderness Extremity Exam: Negative: Tenderness, Swelling Skin Exam: Negative: Rash, Breakdown Psych Exam: Positive: Oriented x 3 Assessment /Plan Problems (1) Pneumonia Status: Acute Response to Treatment: Improving Problem Text: Likely 2/2 Community Acquired Pneumonia CXR noted, CT Chest also noted from this afternoon WBC wnl Cont ceftriaxone and azithromycin Blood and sputum cx. unrevealing thus far Respiratory panel unrevealing thus far We will cont to monitor the patient's clinical condition (2) Myasthenia gravis Status: Chronic Response to Treatment: Stable Problem Text: Cont current medications (3) GERD (gastroesophageal reflux disease) Status: Chronic Response to Treatment: Stable Problem Text: Cont current medications (4) History of herpes zoster Status: Chronic Response to Treatment: Stable Problem Text: stable c/w gabapentin therapy (5) DVT prophylaxis Status: Acute Response to Treatment: Stable Problem Text: scds Plan/VTE VTE Prophylaxis Ordered?: Yes VS[facility]O Vital Signs Date Time Temp Pulse Resp B/P (MAP) Pulse Ox O2 Delivery O2 Flow Rate FiO2 02/07/17 14:00 100.8 97 18 103/72 (82) 94 Room Air I&O- Last 24 Hours up to 6 AM 02/08/17 06:00 Intake Total 990 ml Output Total 1470 ml Balance -480 ml Laboratory Data 24H LABS Laboratory Tests 2 02/07/17 06:23: Immature Granulocyte % (Auto) 0.6H, White Blood Count 8.8, Red Blood Count 4.26L , Hemoglobin 12.3L, Hematocrit 37.4L, Mean Corpuscular Volume 87.8, Mean Corpuscular Hemoglobin 28.9, Mean Corpuscular Hemoglobin Concent 32.9, Red Cell Distribution Width 12.7, Platelet Count 175, Neutrophils (%) (Auto) 71.8H, Lymphocytes (%) (Auto) 15.9L, Monocytes (%) (Auto) 10.6H, Eosinophils (%) (Auto ) 0.8, Basophils (%) (Auto) 0.3, Neutrophils # (Auto) 6.3, Lymphocytes # (Auto) 1.4L, Monocytes # (Auto) 0.9H, Eosinophils # (Auto) 0.1, Basophils # (Auto) 0.0 , Immature Granulocyte # (Auto) 0.1H, Nucleated Red Blood Cells % (auto) 0.0, Anion Gap 10, Glomerular Filtration Rate > 60.0, Blood Urea Nitrogen 9, Creatinine 0.91, Sodium Level 141, Potassium Level 3.7, Chloride Level 106, Carbon Dioxide Level 25, Calcium Level 8.2L CBC/BMP Laboratory Tests 02/07/17 06:23 Red Blood Count 4.26 L, Mean Corpuscular Volume 87.8, Mean Corpuscular Hemoglobin 28.9, Mean Corpuscular Hemoglobin Concent 32.9, Red Cell Distribution Width 12.7, Neutrophils (%) (Auto) 71.8 H, Lymphocytes (%) (Auto) 15.9 L, Monocytes (%) (Auto) 10.6 H, Eosinophils (%) (Auto) 0.8, Basophils (%) ( Auto) 0.3, Neutrophils # (Auto) 6.3, Lymphocytes # (Auto) 1.4 L, Monocytes # ( Auto) 0.9 H, Eosinophils # (Auto) 0.1, Basophils # (Auto) 0.0, Calcium Level 8.2 L Microbiology Microbiology 02/05/17 Blood Culture - Preliminary, Resulted No growth after 24 hours . All specim... 02/05/17 Blood Culture - Preliminary, Resulted No growth after 24 hours . All specim... 02/07/17 Gram Stain - Final, Resulted 02/07/17 Sputum Culture, Resulted Pending 02/06/17 Respiratory Virus Panel (PCR) ([facility]) - Final, Complete 02/05/17 Urine Culture - Final, Complete CARL ECKERT MD Feb 07, 2017 14:40
[2017-02-07 18:00] VITALS: BP 115/53
[2017-02-07] MEDS: ATORVASTATIN 20 MG TAB PO SCH (20:18)
[2017-02-07] MEDS: PANTOPRAZOLE 40MG TAB (PROTONIX) PO SCH (20:18)
[2017-02-07] MEDS: DOXEPIN 25 MG CAP PO SCH (20:18)
[2017-02-07 22:00] VITALS: BP 141/67
[2017-02-08 02:00] VITALS: BP 128/72
[2017-02-08 06:00] VITALS: BP 133/73
[2017-02-08] MEDS: cefTRIAXone SOD 1 GM in D5W 50 ML IV SCH (06:48)
[2017-02-08 06:58] LABS: BASO % 0.3 % (0.0-1.0); EOS # 0.1 10^3/uL (0.0-0.50); EOS % 1.9 % (0.0-3.0); IMMATURE GRANULOCYTE % 0.5 % (0-0); LYMPH # 1.3 10^3/uL (1.5-4.5); LYMPH % 17.2 % (24.0-44.0); MEAN CORPUSCULAR HEMOGLOBIN 28.5 pg (27.0-33.0); MEAN CORPUSCULAR HGB CONC 32.7 g/dl (32.0-36.5); MEAN CORPUSCULAR VOLUME 87.3 fl (80.0-96.0); MONO # 0.8 10^3/uL (0.0-0.8); MONO % 10.5 % (0.0-5.0); NEUTROPHILS # 5.2 10^3/uL (1.8-7.7); NEUTROPHILS % 69.6 % (36.0-66.0); PLATELET COUNT, AUTOMATED 194 10^3/uL (150-450); RED CELL DISTRIBUTION WIDTH 12.5 % (11.5-14.5); WHITE BLOOD COUNT 7.5 10^3/uL (4.0-10.0)
[2017-02-08 07:33] LABS: ANION GAP 7 MEQ/L (8-16); BLOOD UREA NITROGEN 5 MG/DL (7-18); CARBON DIOXIDE LEVEL 28 MEQ/L (21-32); CHLORIDE LEVEL 107 MEQ/L (98-107); CREATININE FOR GFR 0.85 MG/DL (0.70-1.30); GLOMERULAR FILTRATION RATE > 60.0 (>42); GLUCOSE, FASTING 93 MG/DL (83-110); POTASSIUM SERUM 3.2 MEQ/L (3.5-5.1); SODIUM LEVEL 142 MEQ/L (136-145)
[2017-02-08] MEDS ORDERED: POTASSIUM CHLORIDE 10 MEQ SR TABLET PO ONE (08:00)
[2017-02-08] MEDS: MYCOPHENOLATE MOFETIL 250 MG CAP (J7517) PO SCH (08:25)
[2017-02-08] MEDS: AZITHROMYCIN INJ 500 MG, VIAL MATE ADAPTER 1 EACH in D5W 250 ML IV SCH (08:26)
[2017-02-08] MEDS: PREGABALIN 75 MG CAP(LYRICA) PO SCH (08:26)
[2017-02-08] MEDS ORDERED: LEVA1TAB2 PO (10:55)
--- NOTE | 2017-02-08 15:35 | DS.PDOC ---
Discharge Summary General Date of Admission Feb 05, 2017 at 21:19 Date of Discharge 02/08/17 Discharge Summary PROCEDURES PERFORMED DURING STAY: None. ADMITTING/DISCHARGE DIAGNOSES: 1. . Community-acquired pneumonia 2. . Dyslipidemia 3. . History of myasthenia gravis COMPLICATIONS/CHIEF COMPLAINT: Pneumonia. HISTORY OF PRESENT ILLNESS: . 76-year-old Male with past medical history of myasthenia gravis, dyslipidemia, GERD, and macular degeneration presents to the ER with a chief complaint of shortness of breath and right-sided rib/chest pain. The patient notes that this has been associated with a nonproductive cough. In addition, the patient states that he has been feeling more lethargic and tired but denies any complaints of fevers, chills, lightheadedness/dizziness, abdominal pain, myalgias, arthralgias , or any nausea/vomiting/diarrhea. In the ER, a chest x-ray revealed a new infiltrate with plate-like atelectasis in the right middle lobe consistent with pneumonia. The patient was admitted to the hospitalist service for further management and evaluation of community acquired pneumonia. During hospitalization, the patient was started on IV antibiotics. In addition, a CT scan of the chest was obtained, and this revealed an infiltrate in the anterior and lateral basilar segments of the right lower lobe. The patient's blood cultures, sputum cultures, and a respiratory virus panel were unrevealing. The patient's respiratory status, and right-sided rib/chest pain significantly improved following 48 hours of IV antibiotics. At this time, the patient states that he is feeling much better and is eager to return home. He has been seen ambulating in his room and in the corridor without any acute respiratory complaints. I've advised patient to follow-up with his primary care physician within 7 days. In addition, the patient has been consulted to return to the ER for any acute emergencies. DISCHARGE MEDICATIONS: Please see below. ALLERGIES: Please see below. PHYSICAL EXAMINATION ON DISCHARGE: VITAL SIGNS: Please see below. General Exam: Positive: Alert, Cooperative, No Acute Distress ENT Exam: Positive: Atraumatic, Mucous membr. moist/pink Neck Exam: Negative: JVD, thyromegaly Chest Exam: Positive: Diminished, Negative: Rales, Rhonchi, Wheezing Heart Exam: Positive: Rate Normal Abdomen Exam: Positive: Soft, Negative: Tenderness Extremity Exam: Negative: Tenderness, Swelling Skin Exam: Negative: Rash, Breakdown Psych Exam: Positive: Oriented x 3 LABORATORY DATA: Please see below. IMAGING: Chest x-ray: Two views. History: Cough. Right rib pain. Comparison chest x-ray: November 30, 2016. Findings: There is a new infiltrate with discoid atelectasis in the distribution of the right middle lobe today, most consistent with pneumonia. The left lung remains clear. There is some volume loss in the right hemithorax, mild in degree. There is no evidence of pleural effusion. No bony destructive lesion is seen. Heart size is normal. The aorta is somewhat tortuous. Impression: New infiltrate with plate-like atelectasis right middle lobe consistent with pneumonia. CT of the chest without IV contrast: Comparison is the plain film PA and lateral study dated 02/05/2017. There is discoid atelectasis in the right middle lobe. There is an infiltrate in the anterior and lateral basilar segments of the right lower lobe. There is a small right pleural effusion. The left lung is clear. There is no mediastinal or axillary adenopathy. The study is insensitive for hilar adenopathy in the absence of IV contrast. The thoracic aorta is unremarkable. Cardiac size is normal. The visualized upper abdominal contents are unremarkable. Impression: Discoid atelectasis in the right middle lobe. Infiltrate in the anterior and lateral basilar segments of the right lower lobe. Small right pleural effusion. PROGNOSIS: Fair ACTIVITY: As tolerated. DIET: . Regular DISCHARGE PLAN: DISPOSITION: 01 Home, Self-Care. DISCHARGE INSTRUCTIONS: 1. . Complete antibiotic course as prescribed 2. . Follow up with primary care physician within 7 days 3. . Return to ER for any acute emergencies DISCHARGE CONDITION: Stable. TIME SPENT ON DISCHARGE: Greater than 30 minutes. Vital Signs/I&Os Vital Signs Date Time Temp Pulse Resp B/P (MAP) Pulse Ox O2 Delivery O2 Flow Rate FiO2 02/08/17 08:25 Room Air 02/08/17 06:00 98.5 96 18 133/73 (93) 93 I&O- Last 24 Hours up to 6 AM 02/09/17 06:00 Output Total 475 ml Balance -475 ml Laboratory Data Labs 24H Laboratory Tests 2 02/08/17 06:30: Immature Granulocyte % (Auto) 0.5H, White Blood Count 7.5, Red Blood Count 4.24L , Hemoglobin 12.1L, Hematocrit 37.0L, Mean Corpuscular Volume 87.3, Mean Corpuscular Hemoglobin 28.5, Mean Corpuscular Hemoglobin Concent 32.7, Red Cell Distribution Width 12.5, Platelet Count 194, Neutrophils (%) (Auto) 69.6H, Lymphocytes (%) (Auto) 17.2L, Monocytes (%) (Auto) 10.5H, Eosinophils (%) (Auto ) 1.9, Basophils (%) (Auto) 0.3, Neutrophils # (Auto) 5.2, Lymphocytes # (Auto) 1.3L, Monocytes # (Auto) 0.8, Eosinophils # (Auto) 0.1, Basophils # (Auto) 0.0, Immature Granulocyte # (Auto) 0.0, Nucleated Red Blood Cells % (auto) 0.0, Anion Gap 7L, Glomerular Filtration Rate > 60.0, Blood Urea Nitrogen 5L, Creatinine 0.85, Sodium Level 142, Potassium Level 3.2L, Chloride Level 107, Carbon Dioxide Level 28, Calcium Level 8.0L, C-Reactive Protein, Quantitative 13.70H CBC/BMP Laboratory Tests 02/08/17 06:30 Red Blood Count 4.24 L, Mean Corpuscular Volume 87.3, Mean Corpuscular Hemoglobin 28.5, Mean Corpuscular Hemoglobin Concent 32.7, Red Cell Distribution Width 12.5, Neutrophils (%) (Auto) 69.6 H, Lymphocytes (%) (Auto) 17.2 L, Monocytes (%) (Auto) 10.5 H, Eosinophils (%) (Auto) 1.9, Basophils (%) ( Auto) 0.3, Neutrophils # (Auto) 5.2, Lymphocytes # (Auto) 1.3 L, Monocytes # ( Auto) 0.8, Eosinophils # (Auto) 0.1, Basophils # (Auto) 0.0, Calcium Level 8.0 L Microbiology Microbiology 02/05/17 Blood Culture - Preliminary, Resulted No Growth after 48 hours. All Specime... 02/05/17 Blood Culture - Preliminary, Resulted No Growth after 48 hours. All Specime... 02/07/17 Gram Stain - Final, Resulted 02/07/17 Sputum Culture, Resulted Pending 02/06/17 Respiratory Virus Panel (PCR) ([facility]) - Final, Complete 02/05/17 Urine Culture - Final, Complete Discharge Medications Scheduled ([facility]) 1 Cap Cap, 2 CAP PO DAILY, (Reported) Atorvastatin Calcium (Atorvastatin Calcium) 20 Mg Tab, 20 MG PO QHS, (Reported) Doxepin HCl (Doxepin HCl) 25 Mg Cap, 25 MG PO QHS, (Reported) Esomeprazole Magnesium Trihydr (Nexium) 40 Mg Cap, 40 MG PO QHS, (Reported) Levofloxacin Hemihydrate (Levaquin) 500 Mg Tab, 500 MG PO DAILY Mycophenolate Mofetil (Cellcept) 500 Mg Tab, 1,000 MG PO BID, (Reported) Pregabalin (Lyrica) 100 Mg Cap, 150 MG PO BID, (Reported) Scheduled PRN Pyridostigmine [place] (Pyridostigmine [place]) 60 Mg Tab, 60 MG PO TID PRN for PAIN, (Reported) Allergies Coded Allergies: Corticosteroids (Verified Adverse Reaction, Unknown, Unable to have because of Myasthenia Gravis medications, 11/30/16) CARL ECKERT MD Feb 08, 2017 15:35
== END 2017-02-08 11:55 | disposition home or self-care (01) | DRG 195 ==
LOC: M ED 15:36 → M ED INP 21:19 → M MS4PR 23:06
PROVIDERS: ADMIT Internal Medicine; ATTEND Internal Medicine
DX: J18.9 Pneumonia, unspecified organism (principal); G70.00 Myasthenia gravis without (acute) exacerbation; E78.5 Hyperlipidemia, unspecified; K21.9 Gastro-esophageal reflux disease without esophagitis; H35.30 Unspecified macular degeneration; Z79.899 Other long term (current) drug therapy; Z88.8 Allergy status to other drugs, medicaments and biological substances; Z87.891 Personal history of nicotine dependence

== ENCOUNTER → 2017-02-28 | Outpatient (REF) | payer MEDICARE, BC ==
[~2017-02-28] MED LIST changes: +LEVA1TAB2 PO
== END ==
LOC: M LAB REF 13:30 → M LABNEURO 13:30
PROVIDERS: ATTEND Emergency Medicine
DX: E78.2 Mixed hyperlipidemia (principal); R73.01 Impaired fasting glucose; R03.0 Elevated blood-pressure reading, without diagnosis of hypertension; G70.00 Myasthenia gravis without (acute) exacerbation

== ENCOUNTER → 2017-02-28 | Outpatient (REF) | payer MEDICARE, BC ==
[2017-02-28 14:50] LABS: ALBUMIN 3.9 GM/DL (3.2-5.2); ALBUMIN/GLOBULIN RATIO 1.39 (1.00-1.93); ALKALINE PHOSPHATASE 82 U/L (45-117); ALT/SGPT 23 U/L (12-78); ANION GAP 7 MEQ/L (8-16); AST/SGOT 15 U/L (15-37); BILIRUBIN,TOTAL 0.4 MG/DL (0.2-1.0); BLOOD UREA NITROGEN 12 MG/DL (7-18); CALCIUM LEVEL 9.3 MG/DL (8.8-10.2); CARBON DIOXIDE LEVEL 30 MEQ/L (21-32); CHLORIDE LEVEL 104 MEQ/L (98-107); CREATININE FOR GFR 1.04 MG/DL (0.70-1.30); GLOMERULAR FILTRATION RATE > 60.0 (>42); GLUCOSE, FASTING 92 MG/DL (83-110); POTASSIUM SERUM 4.6 MEQ/L (3.5-5.1); SODIUM LEVEL 141 MEQ/L (136-145); TOTAL PROTEIN 6.7 GM/DL (6.4-8.2)
== END ==
LOC: M LABNEURO 13:28
PROVIDERS: ATTEND Psychiatry & Neurology Neurology
DX: G70.00 Myasthenia gravis without (acute) exacerbation (principal)

== ENCOUNTER → 2017-03-26 | Outpatient (REF) | payer MEDICARE, BC ==
[2017-03-26 14:06] LABS: BASO # 0.1 10^3/uL (0.0-0.2); BASO % 0.8 % (0.0-1.0); EOS # 0.1 10^3/uL (0.0-0.50); IMMATURE GRANULOCYTE % 0.7 % (0-0); LYMPH # 1.4 10^3/uL (1.5-4.5); LYMPH % 22.9 % (24.0-44.0); MEAN CORPUSCULAR HEMOGLOBIN 28.4 pg (27.0-33.0); MEAN CORPUSCULAR HGB CONC 32.2 g/dl (32.0-36.5); MEAN CORPUSCULAR VOLUME 88.1 fl (80.0-96.0); MONO # 0.6 10^3/uL (0.0-0.8); MONO % 10.1 % (0.0-5.0); NEUTROPHILS # 3.8 10^3/uL (1.8-7.7); NEUTROPHILS % 63.5 % (36.0-66.0); PLATELET COUNT, AUTOMATED 258 10^3/uL (150-450); RED CELL DISTRIBUTION WIDTH 13.6 % (11.5-14.5); WHITE BLOOD COUNT 5.9 10^3/uL (4.0-10.0)
== END ==
LOC: M LABNEURO 13:32
PROVIDERS: ATTEND Psychiatry & Neurology Neurology
DX: G70.00 Myasthenia gravis without (acute) exacerbation (principal)

== ENCOUNTER → 2017-06-11 | Outpatient (CLI) | payer MEDICARE, BC | LOC: M SMT 11:58 | DX: J84.9 Interstitial pulmonary disease, unspecified (principal); R05 Cough | CPT/HCPCS: 71046 ==

== ENCOUNTER → 2017-06-27 | Outpatient (REF) | payer MEDICARE, BC ==
[2017-06-27 18:24] LABS: BASO % 0.5 % (0.0-1.0); EOS # 0.1 10^3/uL (0.0-0.50); EOS % 1.6 % (0.0-3.0); HEMATOCRIT 45.8 % (42.0-52.0); HEMOGLOBIN 14.7 g/dl (14.0-18.0); IMMATURE GRANULOCYTE % 0.6 % (0-3.0); LYMPH # 1.6 10^3/uL (1.5-4.5); LYMPH % 24.6 % (24.0-44.0); MEAN CORPUSCULAR HEMOGLOBIN 28.7 pg (27.0-33.0); MEAN CORPUSCULAR HGB CONC 32.1 g/dl (32.0-36.5); MEAN CORPUSCULAR VOLUME 89.5 fl (80.0-96.0); MONO # 0.6 10^3/uL (0.0-0.8); MONO % 9.7 % (0.0-5.0); PLATELET COUNT, AUTOMATED 220 10^3/uL (150-450); RED BLOOD COUNT 5.12 10^6/uL (4.30-6.10); RED CELL DISTRIBUTION WIDTH 12.3 % (11.5-14.5); WHITE BLOOD COUNT 6.3 10^3/uL (4.0-10.0)
== END ==
LOC: M LABNEURO 11:51
DX: G70.00 Myasthenia gravis without (acute) exacerbation (principal)
CPT/HCPCS: 85025

== ENCOUNTER → 2017-07-08 | Outpatient (REF) | payer MEDICARE, BC ==
[2017-07-08 18:09] LABS: BASO % 0.6 % (0.0-1.0); EOS # 0.2 10^3/uL (0.0-0.50); EOS % 2.4 % (0.0-3.0); HEMATOCRIT 46.4 % (42.0-52.0); LYMPH # 1.4 10^3/uL (1.5-4.5); LYMPH % 21.9 % (24.0-44.0); MEAN CORPUSCULAR HEMOGLOBIN 28.5 pg (27.0-33.0); MEAN CORPUSCULAR HGB CONC 32.3 g/dl (32.0-36.5); MONO # 0.6 10^3/uL (0.0-0.8); MONO % 10.2 % (0.0-5.0); NEUTROPHILS # 3.9 10^3/uL (1.8-7.7); NEUTROPHILS % 63.9 % (36.0-66.0); PLATELET COUNT, AUTOMATED 224 10^3/uL (150-450); RED BLOOD COUNT 5.27 10^6/uL (4.30-6.10); RED CELL DISTRIBUTION WIDTH 12.5 % (11.5-14.5); WHITE BLOOD COUNT 6.2 10^3/uL (4.0-10.0)
== END ==
LOC: M LABNEURO 10:09
DX: H26.9 Unspecified cataract (principal); Z01.818 Encounter for other preprocedural examination
CPT/HCPCS: 85025

== ENCOUNTER → 2017-08-13 | Outpatient (REF) | payer MEDICARE, BC ==
[2017-08-13 14:57] LABS: ALBUMIN 3.9 GM/DL (3.2-5.2); ALKALINE PHOSPHATASE 83 U/L (45-117); ALT/SGPT 20 U/L (12-78); ANION GAP 5 MEQ/L (8-16); AST/SGOT 16 U/L (7-37); BILIRUBIN,TOTAL 0.6 MG/DL (0.2-1.0); BLOOD UREA NITROGEN 17 MG/DL (7-18); CALCIUM LEVEL 8.8 MG/DL (8.8-10.2); CARBON DIOXIDE LEVEL 28 MEQ/L (21-32); CHLORIDE LEVEL 108 MEQ/L (98-107); CHOLESTEROL LEVEL 126 MG/DL (<200); CREATININE FOR GFR 0.92 MG/DL (0.70-1.30); GLOMERULAR FILTRATION RATE > 60.0 (>42); GLUCOSE, FASTING 97 MG/DL (70-100); HDL CHOLESTEROL 40 MG/DL (>40); LDL CHOLESTEROL 57.8 MG/DL (<100); NON-HDL-C 86 MG/DL; POTASSIUM SERUM 4.2 MEQ/L (3.5-5.1); SODIUM LEVEL 141 MEQ/L (136-145); TOTAL PROTEIN 6.9 GM/DL (6.4-8.2); TRIGLYCERIDES LEVEL 141 MG/DL (<150)
[2017-08-13 15:06] LABS: ESTIMATED AVERAGE GLUCOSE 100 MG/DL (60-110); HEMOGLOBIN A1c 5.1 %
== END ==
LOC: M LABNEURO 10:46
DX: E78.2 Mixed hyperlipidemia (principal); R73.01 Impaired fasting glucose
CPT/HCPCS: 80053

== ENCOUNTER → 2017-11-21 | Outpatient (REF) | payer MEDICARE, BC ==
[2017-11-21 19:31] LABS: BASO % 0.4 % (0.0-1.0); EOS # 0.1 10^3/uL (0.0-0.50); EOS % 1.6 % (0.0-3.0); HEMATOCRIT 43.2 % (42.0-52.0); IMMATURE GRANULOCYTE % 0.5 % (0-3.0); MEAN CORPUSCULAR HEMOGLOBIN 28.9 pg (27.0-33.0); MEAN CORPUSCULAR HGB CONC 32.4 g/dl (32.0-36.5); MEAN CORPUSCULAR VOLUME 89.3 fl (80.0-96.0); MONO # 0.5 10^3/uL (0.0-0.8); NEUTROPHILS % 77.5 % (36.0-66.0); PLATELET COUNT, AUTOMATED 211 10^3/uL (150-450); RED BLOOD COUNT 4.84 10^6/uL (4.30-6.10); RED CELL DISTRIBUTION WIDTH 12.6 % (11.5-14.5); WHITE BLOOD COUNT 7.7 10^3/uL (4.0-10.0)
== END ==
LOC: M LABNEURO 12:55
DX: G70.00 Myasthenia gravis without (acute) exacerbation (principal)
CPT/HCPCS: 85025

== ENCOUNTER → 2018-03-10 | Outpatient (REF) | payer MEDICARE, BC ==
[2018-03-10 13:41] LABS: BASO % 0.6 % (0.0-1.0); EOS # 0.1 10^3/uL (0.0-0.50); EOS % 2.1 % (0.0-3.0); HEMATOCRIT 43.6 % (42.0-52.0); HEMOGLOBIN 14.3 g/dl (13.5-17.5); IMMATURE GRANULOCYTE % 0.8 % (0-3.0); LYMPH % 19.9 % (24.0-44.0); MEAN CORPUSCULAR HEMOGLOBIN 28.8 pg (27.0-33.0); MEAN CORPUSCULAR HGB CONC 32.8 g/dl (32.0-36.5); MEAN CORPUSCULAR VOLUME 87.7 fl (80.0-96.0); MONO # 0.5 10^3/uL (0.0-0.8); MONO % 10.6 % (0.0-5.0); NEUTROPHILS # 3.2 10^3/uL (1.8-7.7); PLATELET COUNT, AUTOMATED 215 10^3/uL (150-450); RED BLOOD COUNT 4.97 10^6/uL (4.30-6.10); RED CELL DISTRIBUTION WIDTH 12.7 % (11.5-14.5); WHITE BLOOD COUNT 4.8 10^3/uL (4.0-10.0)
== END ==
LOC: M LABNEURO 10:43
DX: G70.01 Myasthenia gravis with (acute) exacerbation (principal)

== ENCOUNTER → 2018-03-10 | Outpatient (REF) | payer MEDICARE, BC ==
[2018-03-10 13:55] LABS: ALBUMIN 3.9 GM/DL (3.2-5.2); ALBUMIN/GLOBULIN RATIO 1.34 (1.00-1.93); ALKALINE PHOSPHATASE 80 U/L (45-117); ALT/SGPT 21 U/L (12-78); ANION GAP 7 MEQ/L (8-16); AST/SGOT 17 U/L (7-37); BILIRUBIN,TOTAL 0.5 MG/DL (0.2-1.0); BLOOD UREA NITROGEN 14 MG/DL (7-18); CALCIUM LEVEL 9.1 MG/DL (8.8-10.2); CARBON DIOXIDE LEVEL 29 MEQ/L (21-32); CHLORIDE LEVEL 104 MEQ/L (98-107); CHOLESTEROL LEVEL 136 MG/DL (<200); CHOLESTEROL RISK RATIO 3.317 (<5); CREATININE FOR GFR 0.93 MG/DL (0.70-1.30); GLOMERULAR FILTRATION RATE > 60.0 (>42); GLUCOSE, FASTING 101 MG/DL (70-100); HDL CHOLESTEROL 41 MG/DL (>40); LDL CHOLESTEROL 74 MG/DL (<100); NON-HDL-C 95 MG/DL; POTASSIUM SERUM 4.2 MEQ/L (3.5-5.1); SODIUM LEVEL 140 MEQ/L (136-145); TOTAL PROTEIN 6.8 GM/DL (6.4-8.2); TRIGLYCERIDES LEVEL 107 MG/DL (<150)
[2018-03-10 16:27] LABS: ESTIMATED AVERAGE GLUCOSE 105 MG/DL (60-110); HEMOGLOBIN A1c 5.3 %
== END ==
LOC: M LABNEURO 10:41
DX: E78.2 Mixed hyperlipidemia (principal); R73.01 Impaired fasting glucose; G70.01 Myasthenia gravis with (acute) exacerbation
CPT/HCPCS: 80053

== ENCOUNTER → 2018-06-27 | Outpatient (REF) | payer MEDICARE, BC ==
[~2018-06-27] MED LIST changes: -BENZ200C53 PO; +BENZ200C70 PO; +DOXE150C PO; -DOXE150C7 PO; -GABA-283 PO; +GABA-845 PO; -GABA600T PO; +GABA600T4 PO; +OXYC10TA3 PO; -OXYC1TAB16 PO; -VALA500T2 PO; +VALA500T5 PO
[2018-06-27 14:22] LABS: BASO % 0.5 % (0.0-1.0); EOS # 0.1 10^3/uL (0.0-0.50); EOS % 1.9 % (0.0-3.0); HEMATOCRIT 44.9 % (42.0-52.0); HEMOGLOBIN 14.5 g/dl (13.5-17.5); LYMPH % 16.9 % (24.0-44.0); MEAN CORPUSCULAR HEMOGLOBIN 28.8 pg (27.0-33.0); MEAN CORPUSCULAR HGB CONC 32.3 g/dl (32.0-36.5); MEAN CORPUSCULAR VOLUME 89.3 fl (80.0-96.0); MONO # 0.6 10^3/uL (0.0-0.8); MONO % 9.6 % (0.0-5.0); NEUTROPHILS % 70.4 % (36.0-66.0); PLATELET COUNT, AUTOMATED 222 10^3/uL (150-450); RED BLOOD COUNT 5.03 10^6/uL (4.30-6.10); WHITE BLOOD COUNT 5.7 10^3/uL (4.0-10.0)
== END ==
LOC: M LABNEURO 11:27
PROVIDERS: ATTEND Psychiatry & Neurology Neurology
DX: G70.00 Myasthenia gravis without (acute) exacerbation (principal)

== ENCOUNTER → 2018-10-09 | Outpatient (REF) | payer MEDICARE, BC ==
[~2018-10-09] MED LIST changes: -/ESOM40CA PO; -/MOXI40TA PO; -ACET50TA PO; +AVEL1TAB2 PO; +MAPA500T17 PO; +NEXI1CAP3 PO
[2018-10-09 17:48] LABS: BASO % 0.6 % (0.0-1.0); EOS # 0.1 10^3/uL (0.0-0.50); EOS % 1.6 % (0.0-3.0); HEMATOCRIT 46.1 % (42.0-52.0); HEMOGLOBIN 14.8 g/dl (13.5-17.5); LYMPH % 19.3 % (24.0-44.0); MEAN CORPUSCULAR HEMOGLOBIN 29.8 pg (27.0-33.0); MEAN CORPUSCULAR HGB CONC 32.1 g/dl (32.0-36.5); MEAN CORPUSCULAR VOLUME 92.8 fl (80.0-96.0); MONO # 0.5 10^3/uL (0.0-0.8); NEUTROPHILS # 3.5 10^3/uL (1.8-7.7); NEUTROPHILS % 67.9 % (36.0-66.0); PLATELET COUNT, AUTOMATED 219 10^3/uL (150-450); RED BLOOD COUNT 4.97 10^6/uL (4.30-6.10); WHITE BLOOD COUNT 5.1 10^3/uL (4.0-10.0)
== END ==
LOC: M LABNEURO 13:29
PROVIDERS: ATTEND Psychiatry & Neurology Neurology
DX: G70.00 Myasthenia gravis without (acute) exacerbation (principal)

== ENCOUNTER → 2018-11-11 | Outpatient (REF) | payer MEDICARE, BC | LOC: M LAB REF 13:04 | PROVIDERS: ATTEND Physician Assistant | DX: R30.0 Dysuria (principal) ==

== ENCOUNTER → 2018-11-19 | Outpatient (REF) | payer MEDICARE, BC ==
[2018-11-19 14:38] LABS: BASO % 0.5 % (0.0-1.0); EOS # 0.2 10^3/uL (0.0-0.50); HEMATOCRIT 43.6 % (42.0-52.0); HEMOGLOBIN 14.3 g/dl (13.5-17.5); LYMPH # 0.7 10^3/uL (1.5-4.5); LYMPH % 17.3 % (24.0-44.0); MEAN CORPUSCULAR HEMOGLOBIN 29.9 pg (27.0-33.0); MEAN CORPUSCULAR HGB CONC 32.8 g/dl (32.0-36.5); MEAN CORPUSCULAR VOLUME 91.2 fl (80.0-96.0); MONO # 0.5 10^3/uL (0.0-0.8); MONO % 11.8 % (0.0-5.0); NEUTROPHILS # 2.6 10^3/uL (1.8-7.7); NEUTROPHILS % 65.6 % (36.0-66.0); PLATELET COUNT, AUTOMATED 213 10^3/uL (150-450); RED BLOOD COUNT 4.78 10^6/uL (4.30-6.10)
[2018-11-20 14:07] LABS: RUBEOLA IgG ANTIBODY >300.0 AU/mL (Immune >29.9)
== END ==
LOC: M LABNEURO 11:24
PROVIDERS: ATTEND Physician Assistant
DX: R21 Rash and other nonspecific skin eruption (principal)

== ENCOUNTER → 2018-12-10 | Outpatient (REF) | payer MEDICARE, BC ==
[~2018-12-10] MED LIST changes: +OLOP1SPR; +PRED20TA PO
[2018-12-10 17:10] LABS: RUBELLA IgG QUALITATIVE SUSCEPTIBLE (IMMUNE)
[2018-12-13 00:06] LABS: RUBEOLA IgG ANTIBODY >300.0 AU/mL (Immune >29.9)
== END ==
LOC: M LABNEURO 14:42
PROVIDERS: ATTEND Physician Assistant
DX: R21 Rash and other nonspecific skin eruption (principal)

== ENCOUNTER 2018-12-16 14:50 | Emergency (ER) | payer MEDICARE, BC ==
[~2018-12-16] VITALS: Ht 177.8 cm; Wt 86.8 kg
[~2018-12-16 14:50] MED LIST changes: -OLOP1SPR; -PRED20TA PO
[2018-12-16] MEDS ORDERED: OLOP1SPR (15:49)
[2018-12-16] MEDS ORDERED: diphenhydrAMINE INJ 50MG/ML VIAL (J1200) IM STA (17:10)
[2018-12-16 17:28] LABS: BASO % 0.2 % (0.0-1.0); EOS # 0.1 10^3/uL (0.0-0.50); EOS % 1.3 % (0.0-3.0); HEMATOCRIT 41.6 % (42.0-52.0); HEMOGLOBIN 13.7 g/dl (13.5-17.5); LYMPH # 0.5 10^3/uL (1.5-4.5); LYMPH % 6.2 % (24.0-44.0); MEAN CORPUSCULAR HEMOGLOBIN 29.9 pg (27.0-33.0); MEAN CORPUSCULAR HGB CONC 32.9 g/dl (32.0-36.5); MEAN CORPUSCULAR VOLUME 90.8 fl (80.0-96.0); MONO # 0.9 10^3/uL (0.0-0.8); MONO % 10.5 % (0.0-5.0); NEUTROPHILS # 7.1 10^3/uL (1.8-7.7); NEUTROPHILS % 81.1 % (36.0-66.0); PLATELET COUNT, AUTOMATED 168 10^3/uL (150-450); RED BLOOD COUNT 4.58 10^6/uL (4.30-6.10); WHITE BLOOD COUNT 8.7 10^3/uL (4.0-10.0)
[2018-12-16 17:48] LABS: ALBUMIN 3.6 GM/DL (3.2-5.2); ALT/SGPT 26 U/L (12-78); BILIRUBIN,DIRECT 0.1 MG/DL (0.0-0.2); BILIRUBIN,TOTAL 0.5 MG/DL (0.2-1.0); BLOOD UREA NITROGEN 14 MG/DL (7-18); C REACTIVE PROTEIN QUANTITATIV < 0.30 MG/DL (0.00-0.30); CALCIUM LEVEL 8.7 MG/DL (8.8-10.2); CARBON DIOXIDE LEVEL 27 MEQ/L (21-32); CHLORIDE LEVEL 106 MEQ/L (98-107); COMPLEMENT C4 31 MG/DL (10-40); CREATININE FOR GFR 0.99 MG/DL (0.70-1.30); GLOMERULAR FILTRATION RATE > 60.0 (>42); GLUCOSE, FASTING 81 MG/DL (70-100); POTASSIUM SERUM 3.5 MEQ/L (3.5-5.1); SODIUM LEVEL 141 MEQ/L (136-145); TOTAL PROTEIN 6.2 GM/DL (6.4-8.2)
[2018-12-16 17:50] LABS: ERYTHROCYTE SEDIMENTATION RATE 6 mm/hr (0-20)
[2018-12-16] MEDS ORDERED: methylPREDNISolone INJ 125 MG/2 ML VIAL (J2930) IM ONE (18:30)
[2018-12-16] MEDS ORDERED: PRED20TA PO (18:43)
[2018-12-16 18:49] VITALS: BP 135/82
[2018-12-16] MEDS ORDERED: ACETAMINOPHEN TAB 650MG DOSE (2X325MG) PO ONE (19:00)
--- NOTE | 2018-12-17 08:18 | REP ---
REASON: Cough. COMPARISON: 06/11/2017 Chronic basilar fibrotic changes, status quo. No acute patchy parenchymal opacities or pleural effusions have developed. The cardiomediastinal silhouette is stable. The heart is not enlarged. The osseous structures are stable and intact. IMPRESSION: No acute cardiopulmonary disease. Electronically Signed by Tra Esquivel DO 12/17/2018 09:45 A
== END 2018-12-16 19:05 | disposition home or self-care (01) ==
LOC: M ED 14:50
DX: R21 Rash and other nonspecific skin eruption (principal); I95.9 Hypotension, unspecified; N02.9 Recurrent and persistent hematuria with unspecified morphologic changes; G70.00 Myasthenia gravis without (acute) exacerbation; Z79.899 Other long term (current) drug therapy; Z88.8 Allergy status to other drugs, medicaments and biological substances; F17.220 Nicotine dependence, chewing tobacco, uncomplicated
CPT/HCPCS: 36415; 71046; 80048; 80076; 85025; 85280; 85652; 86140; 86160; 96372; 99283; J1200; J2930

== ENCOUNTER → 2019-01-20 | Outpatient (REF) | payer MEDICARE, BC ==
[~2019-01-20] MED LIST changes: +OLOP1SPR; +PRED20TA PO
== END ==
LOC: M LAB REF 12:09
PROVIDERS: ATTEND Surgery
DX: C44.519 Basal cell carcinoma of skin of other part of trunk (principal)

== ENCOUNTER → 2019-01-21 | Outpatient (REF) | payer MEDICARE, BC ==
[2019-01-21 18:46] LABS: BASO % 0.5 % (0.0-1.0); EOS # 0.1 10^3/uL (0.0-0.5); EOS % 1.9 % (0.0-3.0); HEMATOCRIT 39.4 % (42.0-52.0); HEMOGLOBIN 12.5 g/dl (13.5-17.5); LYMPH # 0.5 10^3/uL (1.5-5.0); LYMPH % 10.8 % (24.0-44.0); MEAN CORPUSCULAR HEMOGLOBIN 28.7 pg (27.0-33.0); MEAN CORPUSCULAR HGB CONC 31.7 g/dl (32.0-36.5); MEAN CORPUSCULAR VOLUME 90.6 fl (80.0-96.0); MONO # 0.3 10^3/uL (0.0-0.8); MONO % 8.2 % (0.0-5.0); NEUTROPHILS # 3.2 10^3/uL (1.5-8.5); NEUTROPHILS % 77.4 % (36.0-66.0); PLATELET COUNT, AUTOMATED 225 10^3/uL (150-450); RED BLOOD COUNT 4.35 10^6/uL (4.30-6.10); WHITE BLOOD COUNT 4.2 10^3/uL (4.0-10.0)
== END ==
LOC: M LABNEURO 11:42
PROVIDERS: ATTEND Psychiatry & Neurology Neurology
DX: G70.00 Myasthenia gravis without (acute) exacerbation (principal)

== ENCOUNTER → 2019-02-03 | Outpatient (REF) | payer MEDICARE, BC ==
[2019-02-03 14:10] LABS: ALBUMIN 3.6 GM/DL (3.2-5.2); ALT/SGPT 28 U/L (12-78); BILIRUBIN,TOTAL 0.6 MG/DL (0.2-1.0); BLOOD UREA NITROGEN 16 MG/DL (7-18); CARBON DIOXIDE LEVEL 29 MEQ/L (21-32); CHLORIDE LEVEL 105 MEQ/L (98-107); CHOLESTEROL LEVEL 119 MG/DL (<200); CHOLESTEROL RISK RATIO 3.838 (<5); CREATININE FOR GFR 1.03 MG/DL (0.70-1.30); GLOMERULAR FILTRATION RATE > 60.0 (>42); GLUCOSE, FASTING 88 MG/DL (70-100); HDL CHOLESTEROL 31 MG/DL (>40); LDL CHOLESTEROL 55 MG/DL (<100); NON-HDL-C 88 MG/DL; POTASSIUM SERUM 4.3 MEQ/L (3.5-5.1); SODIUM LEVEL 140 MEQ/L (136-145); TOTAL PROTEIN 6.2 GM/DL (6.4-8.2); TRIGLYCERIDES LEVEL 165 MG/DL (<150)
[2019-02-03 15:02] LABS: HEMOGLOBIN A1c 5.3 %
== END ==
LOC: M LABNEURO 10:45
PROVIDERS: ATTEND Physician Assistant
DX: E78.2 Mixed hyperlipidemia (principal); R73.01 Impaired fasting glucose

== ENCOUNTER → 2019-04-24 | Outpatient (REF) | payer MEDICARE, BC ==
[2019-04-24 16:45] LABS: BASO % 0.3 % (0.0-1.0); EOS # 0.1 10^3/uL (0.0-0.5); EOS % 3.1 % (0.0-3.0); HEMATOCRIT 42.1 % (42.0-52.0); HEMOGLOBIN 13.5 g/dl (13.5-17.5); LYMPH # 0.4 10^3/uL (1.5-5.0); LYMPH % 13.6 % (24.0-44.0); MEAN CORPUSCULAR HGB CONC 32.1 g/dl (32.0-36.5); MEAN CORPUSCULAR VOLUME 90.5 fl (80.0-96.0); MONO # 0.5 10^3/uL (0.0-0.8); MONO % 18.3 % (0.0-5.0); NEUTROPHILS # 1.9 10^3/uL (1.5-8.5); NEUTROPHILS % 64.4 % (36.0-66.0); PLATELET COUNT, AUTOMATED 182 10^3/uL (150-450); RED BLOOD COUNT 4.65 10^6/uL (4.30-6.10)
== END ==
LOC: M LABDRWAD 16:19
PROVIDERS: ATTEND Psychiatry & Neurology Neurology
DX: G70.01 Myasthenia gravis with (acute) exacerbation (principal)

== ENCOUNTER → 2019-07-10 | Outpatient (REF) | payer MEDICARE, BC ==
[2019-07-10 14:08] LABS: BASO % 0.3 % (0.0-1.0); EOS # 0.1 10^3/uL (0.0-0.5); EOS % 4.3 % (0.0-3.0); HEMATOCRIT 40.1 % (42.0-52.0); HEMOGLOBIN 12.8 g/dl (13.5-17.5); LYMPH # 0.3 10^3/uL (1.5-5.0); LYMPH % 10.9 % (24.0-44.0); MEAN CORPUSCULAR HGB CONC 31.9 g/dl (32.0-36.5); MEAN CORPUSCULAR VOLUME 87.7 fl (80.0-96.0); MONO # 0.5 10^3/uL (0.0-0.8); MONO % 16.1 % (0.0-5.0); NEUTROPHILS # 2.1 10^3/uL (1.5-8.5); NEUTROPHILS % 67.7 % (36.0-66.0); PLATELET COUNT, AUTOMATED 201 10^3/uL (150-450); RED BLOOD COUNT 4.57 10^6/uL (4.30-6.10)
== END ==
LOC: M LABDRWAD 12:59
PROVIDERS: ATTEND Psychiatry & Neurology Neurology
DX: G70.00 Myasthenia gravis without (acute) exacerbation (principal)

== ENCOUNTER → 2019-08-04 | Outpatient (REF) | payer MEDICARE, BC ==
[2019-08-04 13:36] LABS: BASO # 0.1 10^3/uL (0.0-0.2); BASO % 1.4 % (0.0-1.0); EOS # 0.2 10^3/uL (0.0-0.5); EOS % 4.3 % (0.0-3.0); HEMATOCRIT 41.3 % (42.0-52.0); HEMOGLOBIN 13.6 g/dl (13.5-17.5); LYMPH # 0.4 10^3/uL (1.5-5.0); LYMPH % 12.3 % (24.0-44.0); MEAN CORPUSCULAR HEMOGLOBIN 29.6 pg (27.0-33.0); MEAN CORPUSCULAR HGB CONC 32.9 g/dl (32.0-36.5); MEAN CORPUSCULAR VOLUME 89.8 fl (80.0-96.0); MONO # 0.6 10^3/uL (0.0-0.8); NEUTROPHILS # 2.3 10^3/uL (1.5-8.5); NEUTROPHILS % 65.4 % (36.0-66.0); PLATELET COUNT, AUTOMATED 206 10^3/uL (150-450); WHITE BLOOD COUNT 3.5 10^3/uL (4.0-10.0)
[2019-08-04 13:50] LABS: ALBUMIN 3.8 GM/DL (3.2-5.2); ALT/SGPT 20 U/L (12-78); BILIRUBIN,TOTAL 0.7 MG/DL (0.2-1.0); BLOOD UREA NITROGEN 16 MG/DL (7-18); CARBON DIOXIDE LEVEL 30 MEQ/L (21-32); CHLORIDE LEVEL 103 MEQ/L (98-107); CREATININE FOR GFR 0.96 MG/DL (0.70-1.30); GLOMERULAR FILTRATION RATE > 60.0 (>42); GLUCOSE, FASTING 89 MG/DL (70-100); POTASSIUM SERUM 4.2 MEQ/L (3.5-5.1); SODIUM LEVEL 137 MEQ/L (136-145); TOTAL PROTEIN 6.7 GM/DL (6.4-8.2)
[2019-08-04 13:53] LABS: HEMOGLOBIN A1c 5.5 %
== END ==
LOC: M LABDRWAD 12:31
PROVIDERS: ATTEND Physician Assistant
DX: R73.01 Impaired fasting glucose (principal); M12.9 Arthropathy, unspecified; G70.00 Myasthenia gravis without (acute) exacerbation

== ENCOUNTER → 2019-08-04 | Outpatient (REF) | payer MEDICARE, BC ==
[2019-08-04 13:26] LABS: BASO % 0.9 % (0.0-1.0); EOS # 0.1 10^3/uL (0.0-0.5); EOS % 3.5 % (0.0-3.0); HEMATOCRIT 41.4 % (42.0-52.0); HEMOGLOBIN 13.2 g/dl (13.5-17.5); LYMPH # 0.5 10^3/uL (1.5-5.0); LYMPH % 14.1 % (24.0-44.0); MEAN CORPUSCULAR HEMOGLOBIN 28.4 pg (27.0-33.0); MEAN CORPUSCULAR HGB CONC 31.9 g/dl (32.0-36.5); MEAN CORPUSCULAR VOLUME 89.2 fl (80.0-96.0); MONO # 0.5 10^3/uL (0.0-0.8); MONO % 13.2 % (0.0-5.0); NEUTROPHILS # 2.3 10^3/uL (1.5-8.5); NEUTROPHILS % 67.4 % (36.0-66.0); PLATELET COUNT, AUTOMATED 205 10^3/uL (150-450); RED BLOOD COUNT 4.64 10^6/uL (4.30-6.10); WHITE BLOOD COUNT 3.4 10^3/uL (4.0-10.0)
== END ==
LOC: M LABDRWAD 12:34
PROVIDERS: ATTEND Psychiatry & Neurology Neurology
DX: G70.00 Myasthenia gravis without (acute) exacerbation (principal)

== ENCOUNTER → 2019-09-30 | Outpatient (REF) | payer MEDICARE, BC ==
[2019-09-30 18:24] LABS: BASO % 0.6 % (0.0-1.0); EOS # 0.2 10^3/uL (0.0-0.5); EOS % 3.6 % (0.0-3.0); HEMATOCRIT 43.8 % (42.0-52.0); HEMOGLOBIN 14.2 g/dl (13.5-17.5); LYMPH # 0.8 10^3/uL (1.5-5.0); MEAN CORPUSCULAR HGB CONC 32.4 g/dl (32.0-36.5); MEAN CORPUSCULAR VOLUME 89.4 fl (80.0-96.0); MONO # 0.6 10^3/uL (0.0-0.8); MONO % 12.2 % (0.0-5.0); NEUTROPHILS # 3.2 10^3/uL (1.5-8.5); NEUTROPHILS % 67.2 % (36.0-66.0); PLATELET COUNT, AUTOMATED 201 10^3/uL (150-450); WHITE BLOOD COUNT 4.7 10^3/uL (4.0-10.0)
== END ==
LOC: M LABDRWAD 16:45
PROVIDERS: ATTEND Psychiatry & Neurology Neurology
DX: G70.00 Myasthenia gravis without (acute) exacerbation (principal)

== ENCOUNTER 2019-10-26 10:14 | Inpatient (IN) | payer MEDICARE, BC ==
[~2019-10-26] VITALS: Ht 175.3 cm; Wt 86.7 kg
[2019-10-26] MEDS ORDERED: HYDR200T3 PO (10:40)
[2019-10-26] MEDS ORDERED: NORCO, ANEXSIA 5/325MG TABLET (HYDROcodone/ACETAMINOPHEN) PO ONE (11:00)
[2019-10-26 11:13] LABS: BASO % 0.6 % (0.0-1.0); EOS # 0.1 10^3/uL (0.0-0.5); EOS % 2.8 % (0.0-3.0); HEMATOCRIT 47.5 % (42.0-52.0); HEMOGLOBIN 15.8 g/dl (13.5-17.5); LYMPH # 0.8 10^3/uL (1.5-5.0); LYMPH % 16.7 % (24.0-44.0); MEAN CORPUSCULAR HEMOGLOBIN 28.8 pg (27.0-33.0); MEAN CORPUSCULAR HGB CONC 33.3 g/dl (32.0-36.5); MEAN CORPUSCULAR VOLUME 86.5 fl (80.0-96.0); MONO # 0.4 10^3/uL (0.0-0.8); MONO % 9.4 % (0.0-5.0); NEUTROPHILS # 3.3 10^3/uL (1.5-8.5); NEUTROPHILS % 70.1 % (36.0-66.0); PLATELET COUNT, AUTOMATED 166 10^3/uL (150-450); RED BLOOD COUNT 5.49 10^6/uL (4.30-6.10); WHITE BLOOD COUNT 4.7 10^3/uL (4.0-10.0)
[2019-10-26 11:47] LABS: ALBUMIN 3.6 GM/DL (3.2-5.2); ALT/SGPT 39 U/L (12-78); BILIRUBIN,DIRECT < 0.1 MG/DL (0.0-0.2); BILIRUBIN,TOTAL 0.4 MG/DL (0.2-1.0); CK-MB VALUE MASS < 1.0 NG/ML (<3.6); CPK CREATINE PHOSPHOKINASE 341 U/L (39-308); FREE T4 0.97 NG/DL (0.76-1.46); LIPASE 67 U/L (73-393); MB/CK RELATIVE INDEX 0.29 (< OR =4); NT-PRO BNP 109 PG/ML (<450); TOTAL PROTEIN 7.3 GM/DL (6.4-8.2); TROPONIN I < 0.02 NG/ML (< 0.10)
--- NOTE | 2019-10-26 13:19 | REP ---
PORTABLE CHEST X-RAY: Single view. HISTORY: Chest pain. COMPARISON CHEST X-RAY: December 16, 2018. FINDINGS: Monitoring electrodes are seen. An orthopedic anchoring device is noted in the humeral head on the right. The lungs are symmetrically aerated and clear. There is minimal pleuroparenchymal fibrosis in the right base. The pleural angles are sharp. Pulmonary vasculature is not increased. Heart size is normal. Thoracic aorta is slightly tortuous. IMPRESSION: Minimal linear pleuroparenchymal fibrosis right base. Otherwise no acute disease. Electronically Signed by Prateek Trammell MD 10/26/2019 05:05 P
[2019-10-26] MEDS ORDERED: valACYclovir HCL 500 MG TAB PO ONE (13:30)
--- NOTE | 2019-10-26 13:30 | REP ---
CT BRAIN WITHOUT CONTRAST: HISTORY: Headache. Comparison head CT study October 04, 2016. CT FINDINGS: Preliminary digital rolling down machine operator radiograph is unremarkable. Bone window settings demonstrate an intact bony calvarium. Visualized paranasal sinuses are clear. There is vascular calcification in the distal internal carotid arteries bilaterally. Soft tissue window settings show mild to moderate generalized volume loss. There is a low-density area in the basal ganglia medially on the left today new from the 2017 prior study. This may reflect recent lacunar infarction. There is no evidence of intracranial mass lesion. No hemorrhage is seen. No extra-axial fluid collection is noted. IMPRESSION: New 1.2 cm area of low density in the left basal ganglia medially. Recent infarct suspected. Generalized volume loss and small vessel changes are again noted. Vascular calcification is again noted. Electronically Signed by Prateek Trammell MD 10/26/2019 05:05 P
[2019-10-26] MEDS ORDERED: ISOVUE-370 76% 100ML VIAL As Ordered ONE (13:35)
--- NOTE | 2019-10-26 15:13 | REP ---
MRI BRAIN WITHOUT CONTRAST: HISTORY: Abnormal CT. Comparison is made with today's CT study showing low density new area in the left basal ganglia. TECHNIQUE: Axial and sagittal imaging planes are utilized for T1- and T2-weighted scans. Sequences include spin-echo, fast spin echo, FLAIR, and diffusion weighted sequences. MRI FINDINGS: Bony calvarium is intact. Craniocervical junction and upper cervical cord are normal in appearance. No intraorbital abnormality is seen. There is no MR evidence of significant paranasal sinus disease. There is low T1 and high T2 signal intensity in the medial aspect of the basal ganglia on the left and thalamus on the left corresponding to the area of low density on CT study. This shows restricted diffusion pattern on diffusion-weighted scans consistent with acute to subacute ischemia. No other area of restricted diffusion is seen. There is generalized volume loss. There is no evidence of intracranial hemorrhage. There are small vessel atherosclerotic changes in the periventricular and subcortical white matter. IMPRESSION: Restricted diffusion pattern in the medial aspect of the basal ganglia and thalamus on the left consistent with acute to subacute ischemia. No hemorrhage is seen. Otherwise negative. Small vessel atherosclerotic changes and generalized volume loss. Electronically Signed by Prateek Trammell MD 10/26/2019 05:08 P
[2019-10-26] MEDS ORDERED: MOBI4TAB PO (15:29)
[2019-10-26] MEDS ORDERED: PREG50CA2 PO (15:31)
[2019-10-26] MEDS: ASPIRIN 81 MG CHEW TABLET PO SCH (16:08)
--- NOTE | 2019-10-26 16:25 | HPEPDOC ---
[facility] Medical History & Physical Date of Admission Oct 26, 2019 Date of Service: Oct 26, 2019 Primary Care Physician: Tatum Berman MD Attending Physician: NEVIN INGRAM DO History and Physical CHIEF COMPLAINT: Lightheadedness/weakness, as well as shingles flareup on the side effects HISTORY OF PRESENT ILLNESS: The patient reports that he has a chronic issue with shingles affecting the left side of his face, and he had a flareup within the last day, however in addition to this he also reports feeling weakness, dizziness and, and "something just wasn't quite right". He started feeling "off" last night, but when he woke up this morning he definitely knew something was wrong, therefore the last known well time is unknown. In the emergency department imaging of the head reveals an acute/subacute left basal ganglia and thalamic stroke. CTA reveals 50% stenosis of the left ICA, and 75% stenosis of the right proximal ICA. 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 FAMILY HISTORY: Father at 87, [place] Mother at 78, [place] REVIEW OF SYSTEMS: Constitutional: Patient denies fevers, chills, night sweats, recent weight gai n/loss. HEENT: Patient denies blurred or double vision, transient visual disturbances, postnasal drip, epistaxis, sore throat, difficulty chewing or swallowing food. Cardiovascular: Patient denies chest discomfort/pain, palpitations, exertional dyspnea, orthopnea, edema of the extremities, claudication. Respiratory: Patient denies dyspnea, wheezing, cough, hemoptysis, sputum production. Gastrointestinal: Patient denies nausea, vomiting, diarrhea, constipation, abdominal pain, melena, hematochezia, hematemesis, jaundice. PHYSICAL EXAMINATION: General: Awake, alert, oriented 3, but he is not a very good historian HEENT: Head normocephalic atraumatic, conjunctiva are pink, sclera are nonicteric, buccal mucosa is pink and moist with no lesions in the oropharynx. Hearing is grossly intact to conversation. He does have significant hyperesthesia to the left side of the face, with a few erythematous spots and vesicular lesions on the left cheek, and going down his left neck Respiratory: Clear to auscultation bilaterally with no wheezes, rales, or rhonchi. Cardiovascular: Regular rate and rhythm, with no rubs, gallops, or murmur. Abdomen: Soft, nontender, nondistended, no hepatosplenomegaly appreciated. Bowel sounds present. Extremities: 2+ pulses in the radial and dorsalis pedis bilaterally. No evidence of clubbing or cyanosis. Neuro: Extraocular movements are intact. He is not a good historian, but he does not seem to have any trouble with word substitution or difficulty finding words. Muscle strength 5/5 in the bilateral upper and lower extremities. He does seem more clumsy with finger to nose with the right hand, the left hand seems quite accurate, also he is a bit clumsy with the right foot with heel to mcconnell, the left foot is quite accurate. Babinski's are absent bilaterally. DTRs 1+ throughout the bilateral upper and lower extremities. Other than the hyperesthesia to the left face, sensation is intact and normal throughout the bilateral upper and lower extremities to light touch. IMAGING: Left basal ganglia and thalamic stroke presumed to be in the acute/subacute timeframe. CTA reveals right proximal ICA stenosis to 75%, and left ICA stenosis to 50%. Please see the reports for full details. ASSESSMENT/PLAN: CVA Admitted to PCU, we'll perform neuro checks and vital signs checks every 2 hours. Neurology consultation. Started on a full aspirin daily, he was previously on atorvastatin 20 mg daily, this will be increased to 40 mg daily now. Hemoglobin A1c, homocysteine, lipoprotein A, CRP/ESR, and lipid profile are ordered for evaluation of modifiable risk factor. He does not have an echocardiogram on file, therefore this will be done as well (with bubble study). Fall risk precautions ordered. Request for PT/OT evaluations placed. Shingles recurrence to the left face Valacyclovir 3 times a day, and he typically uses Lyrica at home for pain relief, this has been continued. Granuloma annulare Continue home dose of Plaquenil Hyperlipidemia Atorvastatin dose increased to 40 daily at bedtime GERD Continue home dose of pantoprazole Right ICA 75% stenosis Vascular Surgery is unavailable for the next 2 weeks, therefore he will have to follow-up with them after d/c. Vital Signs Vital Signs Date Time Temp Pulse Resp B/P (MAP) Pulse Ox O2 Delivery O2 Flow Rate FiO2 10/26/19 15:38 97.8 61 18 151/88 (109) 97 Room Air Laboratory Data Labs 24H Laboratory Tests 2 10/26/19 10:50: POC Glucose (Misc Panel) 94, POC Sodium (Misc Panel) 140, POC Potassium (Misc Panel) 4.1, POC Chloride (Misc Panel) 103, POC Total CO2 (Misc Panel) 25.0, POC Blood Urea Nitrogen (Misc Panel 22, POC Ionized Calcium (Misc Panel) 4.7, POC Creatinine (Misc Panel) 1.0, POC Hematocrit (Misc Panel) 46.0 10/26/19 10:55: Immature Granulocyte % (Auto) 0.4, Neutrophils (%) (Auto) 70.1H, Lymphocytes (%) (Auto) 16.7L, Monocytes (%) (Auto) 9.4H, Eosinophils (%) (Auto) 2.8, Basophils (%) (Auto) 0.6, Neutrophils # (Auto) 3.3, Lymphocytes # (Auto) 0.8L, Monocytes # (Auto) 0.4, Eosinophils # (Auto) 0.1, Basophils # (Auto) 0.0, Nucleated Red Blood Cells % (auto) 0.0, Total Bilirubin 0.4, Direct Bilirubin < 0.1, Aspartate Amino Transf (AST/SGOT) 70H, Alanine Aminotransferase (ALT/SGPT) 39, Alkaline Phosphatase 72, Total Creatine Kinase 341H, Creatine Kinase MB < 1.0, Creatine Kinase MB Relative Index 0.29, Troponin I < 0.02, HE-Cfq-G-Type Natriuretic Peptide 109, Total Protein 7.3, Albumin 3.6, Albumin/Globulin Ratio 1.0, Lipase 67L, Thyroid Stimulating Hormone (TSH) 2.590, Free Thyroxine 0.97 10/26/19 11:01: POC Lactate (Misc Panel) 1.17 10/26/19 11:02: POC Troponin I (Misc) 0.01 10/26/19 11:40: POC Prothrombin Time (Misc) 12.1, POC INR (Misc) 1.0 CBC/BMP Laboratory Tests 10/26/19 10:55 Microbiology Microbiology 10/26/19 Blood Culture, Received Pending Home Medications Scheduled Atorvastatin Calcium (Atorvastatin Calcium) 20 Mg Tab, 20 MG PO DAILY Esomeprazole Magnesium (Nexium) 40 Mg Cap, 40 MG PO DAILY Hydroxychloroquine Sulfate (Hydroxychloroquine Sulfate) 200 Mg Tablet, 200 PO BID Meloxicam (Mobic) 7.5 Mg Tablet, 7.5 MG PO BID WITH FOOD Mycophenolate Mofetil (Cellcept) 500 Mg Tab, 250 MG PO BID Pregabalin (Pregabalin) 50 Mg Capsule, 50 MG PO BID TAKES UP TO TID IF SHINGLES FLARE UP Allergies Coded Allergies: Corticosteroids (Glucocorticoids) (Verified Adverse Reaction, Unknown, Due to Myasthenia Gravis, 12/16/18) A-FIB/CHADSVASC A-FIB History Current/History of A-Fib/PAF?: No Current PO Anticoag Therapy: NEVIN Mo DO Oct 26, 2019 16:25
--- NOTE | 2019-10-26 16:29 | ECGEPIP ---
[facility] - ED Test Date: 2019-10-26 Pat Name: RENE LOMBARDI Department: Room: - Gender: Male Admissions Specialist: iron : 1940 Requested By: Ginger Schreiber Order Number: [id number] Reading MD: Jose Matute Measurements Intervals [place] Rate: 70 P: 46 LA: 172 QRS: 39 QRSD: 100 T: 45 QT: 365 QTc: 394 Interpretive Statements SINUS RHYTHM Electronically Signed on 10-26-2019 16:29:35 EDT by Jose Matute
[2019-10-26 16:44] LABS: HEMOGLOBIN A1c 5.5 %
--- NOTE | 2019-10-26 16:47 | REP ---
CT ANGIOGRAPHY OF THE NECK WITH IV CONTRAST: HISTORY: CVA. TECHNIQUE: Helical scanning is acquired with IV contrast. 2 mm axial images are reformatted. Coronal and sagittal MPR and MIP images are generated. 3D surface rendered images are generated. Contrast enhancement dose is 100 mL of intravenous Isovue U 07/1969. CT ANGIOGRAPHIC FINDINGS: The visualized aortic arch shows some calcification. Great vessel origins show calcification but no stenosis or occlusion. There is moderate calcific plaquing in the left common carotid artery with 40% narrowing. There is moderate bilateral carotid bifurcation plaquing right more so than left with evidence of 75-80% stenosis at the origin of the right internal carotid and 50% stenosis in the proximal ICA on the left. The cervical segments of the internal carotid arteries are widely patent. There is mild vascular calcification in the carotid siphons. The cervical vertebral artery segments are patent and unremarkable. IMPRESSION: Moderate calcific plaquing left common carotid and bilateral carotid bifurcations and proximal ICA. High-grade stenosis of the right proximal ICA, 75%. 50% stenosis of the left proximal ICA. Electronically Signed by Prateek Trammell MD 10/26/2019 05:08 P
[2019-10-26 16:51] LABS: C REACTIVE PROTEIN QUANTITATIV < 0.30 MG/DL (0.00-0.30); CHOLESTEROL LEVEL 140 MG/DL (<200); CHOLESTEROL RISK RATIO 2.916 (<5); HDL CHOLESTEROL 48 MG/DL (>40); LDL CHOLESTEROL 71 MG/DL (<100); NON-HDL-C 92 MG/DL; TRIGLYCERIDES LEVEL 106 MG/DL (<150)
[2019-10-26 16:56] LABS: ERYTHROCYTE SEDIMENTATION RATE 2 mm/hr (0-20)
--- NOTE | 2019-10-26 17:08 | REP ---
CT angiography of the brain with IV contrast: History: CVA. Comparison is made with today's CT study of the brain and MRI study of the brain showing a recent infarct in the left basal ganglia. CT contrast dose: 100 ml of intravenous Isovue 370. Findings: The distal vertebral arteries are patent and codominant. Basilar artery is widely patent. Posterior cerebral and superior cerebellar vessels are normal in appearance. The distal internal carotid arteries are patent. There is vascular calcification in the carotid siphons bilaterally but no high-grade stenosis is seen. An anterior and middle cerebral arteries are unremarkable. No vessel cutoff or filling defect is seen. Maximal intensity projection images show no additional arterial abnormality. The sagittal and bilateral sigmoid and the straight dural sinus are patent. Impression: Unremarkable CT angiography of the brain with IV contrast. Vascular calcification is noted in the carotid siphons bilaterally but no significant stenosis is seen. No occlusive changes are noted. Electronically Signed by Prateek Trammell MD 10/26/2019 05:00 P
[2019-10-26 17:47] VITALS: BP 110/76
[2019-10-26 20:00] VITALS: BP 120/60
[2019-10-26] MEDS: PREGABALIN 50 MG CAP (LYRICA) PO SCH (20:56)
[2019-10-26] MEDS: MELOXICAM (MOBIC) 7.5 MG TAB PO SCH (20:56)
[2019-10-26] MEDS: HYDROXYCHLOROQUINE 200 MG TAB PO SCH (20:56)
[2019-10-26] MEDS: MYCOPHENOLATE MOFETIL 250 MG CAP (J7517) PO SCH (20:56)
[2019-10-26] MEDS ORDERED: ATORVASTATIN 20 MG TAB PO SCH (21:00)
[2019-10-26 22:00] VITALS: BP 122/82
[2019-10-27] VITALS: BP 122/76
[2019-10-27 02:00] VITALS: BP 108/80
[2019-10-27 04:00] VITALS: BP 132/70
[2019-10-27 05:31] LABS: HEMATOCRIT 44.5 % (42.0-52.0); MEAN CORPUSCULAR HGB CONC 33.7 g/dl (32.0-36.5); MEAN CORPUSCULAR VOLUME 85.9 fl (80.0-96.0); PLATELET COUNT, AUTOMATED 171 10^3/uL (150-450); RED BLOOD COUNT 5.18 10^6/uL (4.30-6.10); WHITE BLOOD COUNT 4.9 10^3/uL (4.0-10.0)
[2019-10-27 05:54] LABS: BLOOD UREA NITROGEN 18 MG/DL (7-18); CALCIUM LEVEL 8.9 MG/DL (8.8-10.2); CARBON DIOXIDE LEVEL 26 MEQ/L (21-32); CHLORIDE LEVEL 109 MEQ/L (98-107); CREATININE FOR GFR 1.01 MG/DL (0.70-1.30); GLOMERULAR FILTRATION RATE > 60.0 (>42); GLUCOSE, FASTING 81 MG/DL (70-100); POTASSIUM SERUM 3.8 MEQ/L (3.5-5.1); SODIUM LEVEL 142 MEQ/L (136-145)
[2019-10-27 06:00] VITALS: BP 120/78
[2019-10-27 08:00] VITALS: BP 120/78
[2019-10-27] MEDS: ASPIRIN 81 MG CHEW TABLET PO SCH (08:19)
[2019-10-27] MEDS: MELOXICAM (MOBIC) 7.5 MG TAB PO SCH (08:19)
[2019-10-27] MEDS: MYCOPHENOLATE MOFETIL 250 MG CAP (J7517) PO SCH (08:19)
[2019-10-27] MEDS: PREGABALIN 50 MG CAP (LYRICA) PO SCH (08:20)
[2019-10-27] MEDS: HYDROXYCHLOROQUINE 200 MG TAB PO SCH (08:20)
[2019-10-27] MEDS ORDERED: valACYclovir HCL 500 MG TAB PO SCH (09:00)
[2019-10-27] MEDS ORDERED: PANTOPRAZOLE 40MG TAB (PROTONIX) PO SCH (09:00)
--- NOTE | 2019-10-27 10:28 | CR ---
DATE OF CONSULTATION: 10/26/2019 REFERRING PHYSICIAN: Dr. Parnell REASON FOR CONSULTATION: Stroke. HISTORY OF PRESENT ILLNESS: Mario Roque is a 79-year-old man with history of myasthenia gravis, macular degeneration, shingles who presented to [facility] due to feeling generalized weakness and also complained of a rash and left-sided headache and facial pain. The patient states that he has history of shingles on left side of face for 1-1/2 year. Lately, he noted increased rash all over his body. His rash worsened in September 2019. He has been following with dermatology. The patient is a poor historian. According to Dr. Goss, who talked with his and the patient himself, that they had nonspecific complaints without any focal deficit. There was no weakness of one side of his body or other. He just felt generally weak and came to emergency department. There was no time of onset of his symptoms. She was planning to give him Valtrex for shingles. CT scan and MRI scan of brain were reviewed and showed a left thalamic acute-subacute ischemic stroke. The patient denies any trouble with his speech, neck pain, back pain, dysphagia, dysarthria, diplopia, or urinary incontinence. DIAGNOSTIC STUDIES: CT scan and MRI scan of brain showed left thalamic ischemic stroke. CT angiogram of head and neck showed 75% right internal carotid artery stenosis and atherosclerosis on left side. CBC and metabolic profile were unremarkable. PAST MEDICAL HISTORY: Dyslipidemia, myasthenia gravis, left-sided facial pain due to shingles, acid reflux. HOME MEDICATIONS: - Lipitor 20 mg by mouth daily - Lyrica 150 mg by mouth twice a day - Mestinon 60 mg by mouth three times a day ALLERGIES: STEROIDS. FAMILY HISTORY: Unremarkable and noncontributory. SOCIAL HISTORY: He quit smoking many years ago. He used to smoke two packs per day. He denies alcohol or illicit drugs. REVIEW OF SYSTEMS: All systems were reviewed and found to be noncontributory except as mentioned in history of present illness. PHYSICAL EXAMINATION: Blood pressure 151/88, pulse 61, respiratory rate 18, temperature 97.8. Heart: Regular rate and rhythm. Lungs: Clear to auscultation. Abdomen: Soft, nontender, nondistended. No pedal edema. No musculoskeletal abnormalities. No rash. No signs of meningeal irritation. The patient is awake, alert, oriented to place, person, and time. Normal speech, comprehension, and repetition. Extraocular muscles are intact. No facial weakness. Tongue and uvula are midline. 5/5 strength in all four extremities. Normal sensation throughout bilaterally. Gait is mildly unsteady. No dysmetria or tremor. ASSESSMENT: 1. Left thalamic acute-subacute ischemic stroke. 2. 75% right internal carotid artery stenosis and left carotid artery atherosclerosis. 3. Myasthenia gravis and dyslipidemia. PLAN: 1. Aspirin 325 mg by mouth daily and Lipitor 20 mg by mouth daily. 2. Check fasting lipid profile. 3. Consult vascular surgery for possible right internal carotid endarterectomy, although it does not have much contribution to his current stroke. 4. Physical and occupational therapy. 5. Follow with Dr. Portillo on outpatient for his current stroke and myasthenia gravis. I will confirm names and doses of his medications for myasthenia gravis. 6. Continue telemetry monitoring and echocardiogram.
--- NOTE | 2019-10-27 10:39 | IPNPDOC ---
Subjective Date Seen The patient was seen on 10/27/19. Subjective Chief Complaint/HPI Patient is comfortable in no distress. Offers no new complaints General: Denies: ROS Unobtainable, Chills, Night Sweats, Fatigue, Malaise, Normal Appetite, Other Symptoms Constitutional: Denies: Chills, Fever, Malaise, Night Sweats, Weakness, Fatigue, Weight Loss, Lethargy, Other Pulmonary: Denies: Dyspnea, Cough, Pleuritic Chest Pain, Other Symptoms Cardiovascular: Denies: Chest Pain, Palpitations, Orthopnea, Paroxysmal Noc. Dyspnea, Edema, Lt Headedness, Other Symptoms Gastrointestinal: Denies: Nausea, Vomiting, Abdominal Pain, Diarrhea, Constipation, Melena, Hematochezia, Other Symptoms Musculoskeletal: Denies: Neck Pain, Back Pain, Shoulder Pain, Arm Pain, Hand Pain, Leg Pain, Foot Pain, Joint Pain, Muscle Pain, Spasms, Other Symptoms Neurological: Denies: Weakness, Numbness, Incoordination, Change in speech, Confusion, Seizures, Other Symptoms Objective Physical Examination General Exam: Positive: Alert, No Acute Distress Eye Exam: Positive: PERRLA, Conjunctiva & lids normal ENT Exam: Positive: Atraumatic, Mucous membr. moist/pink Neck Exam: Positive: Supple Chest Exam: Positive: Clear to auscultation, Normal air movement Heart Exam: Positive: Rate Normal Abdomen Exam: Positive: Normal bowel sounds, Soft Neuro Exam: Positive: Sensation Intact, Cranial Nerves 3-12 NL Psych Exam: Positive: Mood NL, Oriented x 3 Assessment /Plan Problems (1) CVA (cerebral vascular accident) Status: Acute Problem Text: Neuro consult appreciated Continue aspirin and Lipitor as per orders Check lipid profile PT and OT eval Discussed with patient, he does not mention any invasive procedure to be considered at present, but he will follow with neurology as an outpatient and was discussed with neurologist in details as outpatient Echo pending (2) Atrial flutter, paroxysmal Status: Acute Problem Text: Under control. Continue present meds (3) History of herpes zoster Status: Chronic Problem Text: Continue present meds (4) Hyperlipidemia Status: Chronic Problem Text: Continue present meds Plan/VTE VTE Prophylaxis Ordered?: Yes VS, I&O, 24H, Fishbone Vital Signs/I&O Vital Signs Date Time Temp Pulse Resp B/P (MAP) Pulse Ox O2 Delivery O2 Flow Rate FiO2 10/27/19 08:00 97.8 63 18 120/78 (92) 97 Room Air I&O- Last 24 Hours up to 6 AM 10/27/19 06:00 Intake Total 120 ml Output Total 550 ml Balance -430 ml Laboratory Data 24H LABS Laboratory Tests 2 10/26/19 10:50: POC Glucose (Misc Panel) 94, POC Sodium (Misc Panel) 140, POC Potassium (Misc Panel) 4.1, POC Chloride (Misc Panel) 103, POC Total CO2 (Misc Panel) 25.0, POC Blood Urea Nitrogen (Misc Panel 22, POC Ionized Calcium (Misc Panel) 4.7, POC Creatinine (Misc Panel) 1.0, POC Hematocrit (Misc Panel) 46.0 10/26/19 10:55: Immature Granulocyte % (Auto) 0.4, Neutrophils (%) (Auto) 70.1H, Lymphocytes (%) (Auto) 16.7L, Monocytes (%) (Auto) 9.4H, Eosinophils (%) (Auto) 2.8, Basophils (%) (Auto) 0.6, Neutrophils # (Auto) 3.3, Lymphocytes # (Auto) 0.8L, Monocytes # (Auto) 0.4, Eosinophils # (Auto) 0.1, Basophils # (Auto) 0.0, Nucleated Red Blood Cells % (auto) 0.0, Erythrocyte Sedimentation Rate 2, Total Bilirubin 0.4, Direct Bilirubin < 0.1, Aspartate Amino Transf (AST/SGOT) 70H, Alanine Aminotransferase (ALT/SGPT) 39, Alkaline Phosphatase 72, Total Creatine Kinase 341H, Creatine Kinase MB < 1.0, Creatine Kinase MB Relative Index 0.29, Troponin I < 0.02, C-Reactive Protein, Quantitative < 0.30, HU-Itn-G-Type Natriuretic Peptide 109, Total Protein 7.3, Albumin 3.6, Albumin/Globulin Ratio 1.0, Triglycerides Level 106, Total Cholesterol 140, LDL Cholesterol 71, Non-HDL Cholesterol (LDL + VLDL) 92, Total HDL Cholesterol 48, Cholesterol/HDL Ratio 2.916, Lipase 67L, Thyroid Stimulating Hormone (TSH) 2.590, Free Thyroxine 0.97 10/26/19 11:01: POC Lactate (Misc Panel) 1.17 10/26/19 11:02: POC Troponin I (Misc) 0.01 10/26/19 11:40: POC Prothrombin Time (Misc) 12.1, POC INR (Misc) 1.0 10/26/19 16:20: Estimated Mean Plasma Glucose 111H, Hemoglobin A1c 5.5 10/27/19 04:52: Nucleated Red Blood Cells % (auto) 0.0, Anion Gap 7L, Glomerular Filtration Rate > 60.0, Calcium Level 8.9 CBC/BMP Laboratory Tests 10/26/19 10:55 10/27/19 04:52 Microbiology Microbiology 10/26/19 Blood Culture, Received Pending 10/26/19 Blood Culture, Received Pending LIZANDRO MARIANO MD Oct 27, 2019 10:39
[2019-10-27] MEDS ORDERED: ATOR1TAB21 PO (11:04)
[2019-10-27] MEDS ORDERED: ASPI81CH8 PO (11:04)
[2019-10-27 12:00] VITALS: BP 130/82
--- NOTE | 2019-10-27 14:44 | DS.PDOC ---
Discharge Summary General Date of Admission Oct 26, 2019 at 15:52 Date of Discharge 10/27/19 Discharge Summary PROCEDURES PERFORMED DURING STAY: None. ADMITTING DIAGNOSES: 1. CVA. DISCHARGE DIAGNOSES: 1. . CVA., Recurrent shingles, A. fib, hypertension, hyperlipidemia COMPLICATIONS/CHIEF COMPLAINT: Cva Shingles. HISTORY OF PRESENT ILLNESS: The patient reports that he has a chronic issue with shingles affecting the left side of his face, and he had a flareup within the last day, however in addition to this he also reports feeling weakness, dizziness and, and "something just wasn't quite right". He started feeling "off" last night, but when he woke up this morning he definitely knew something was wrong, therefore the last known well time is unknown. In the emergency department imaging of the head reveals an acute/subacute left basal ganglia and thalamic stroke. CTA reveals 50% stenosis of the left ICA, and 75% stenosis of the right proximal ICA.. HOSPITAL COURSE: Patient was admitted with the diagnosis of CVA, MRI of the brain showed possible acute to subacute ischemia basal ganglia and thalamus on the left side and MRA of the neck showed right proximal ICA 75% stenosis and 50% left side, but is not consistent with the current site of his stroke Neuro consult was noted and appreciated and it was advised to continue aspirin and increase the dose of Lipitor to 40 mg by mouth daily Physical therapy and occupational therapy Consults were called and patient was cleared for discharge The was called and informed regarding discharge Discussed with patient, he does not mention any invasive procedure to be considered at present, but he will follow with neurology as an outpatient and was discussed with neurologist in details as outpatient Patient will follow with Dr. Aranda from neurology and Dr. ronald meneses from vascular surgery as an outpatient . DISCHARGE MEDICATIONS: Please see below. ALLERGIES: Please see below. PHYSICAL EXAMINATION ON DISCHARGE: VITAL SIGNS: Please see below. GENERAL: PERRLA. Extraocular muscles intact HEENT: Normal NECK: Supple CARDIOVASCULAR EXAMINATION: S1, S2, regular RESPIRATORY EXAMINATION: Clear to A&P ABDOMINAL EXAMINATION: Benign EXTREMITIES: No clubbing, cyanosis, edema SKIN: Normal NEUROLOGICAL EXAMINATION: . No focal motor sensory deficit PSYCHIATRIC EXAMINATION: Normal LABORATORY DATA: Please see below. IMAGING: MRI brain:Restricted diffusion pattern in the medial aspect of the basal ganglia and thalamus on the left consistent with acute to subacute ischemia. No hemorrhage is seen. Otherwise negative. Small vessel atherosclerotic changes and generalized volume loss. CT neck:Moderate calcific plaquing left common carotid and bilateral carotid bifurcations and proximal ICA. High-grade stenosis of the right proximal ICA, 75%. 50% stenosis of the left proximal ICA. PROGNOSIS: Good ACTIVITY: As tolerated. DIET: As tolerated DISCHARGE PLAN: Follow-up with neurology and vascular surgery as an outpatient DISPOSITION: 01 Home, Self-Care. DISCHARGE INSTRUCTIONS: 1. As per discharge instructions. ITEMS TO FOLLOWUP ON ON OUTPATIENT: 1. As above. DISCHARGE CONDITION: Stable. TIME SPENT ON DISCHARGE: 36 minutes. Vital Signs/I&Os Vital Signs Date Time Temp Pulse Resp B/P (MAP) Pulse Ox O2 Delivery O2 Flow Rate FiO2 10/27/19 12:00 97.2 75 18 130/82 (98) 97 Room Air I&O- Last 24 Hours up to 6 AM 10/27/19 06:00 Intake Total 120 ml Output Total 550 ml Balance -430 ml Laboratory Data Labs 24H Laboratory Tests 2 10/26/19 16:20: Estimated Mean Plasma Glucose 111H, Hemoglobin A1c 5.5 10/27/19 04:52: Nucleated Red Blood Cells % (auto) 0.0, Anion Gap 7L, Glomerular Filtration Rate > 60.0, Calcium Level 8.9 CBC/BMP Laboratory Tests 10/27/19 04:52 Microbiology Microbiology 10/26/19 Blood Culture, Received Pending 10/26/19 Blood Culture - Preliminary, Resulted No growth after 24 hours . All specim... Discharge Medications Scheduled Aspirin (Children's Aspirin) 81 Mg Tab.chew, 324 MG PO DAILY Atorvastatin Calcium (Atorvastatin Calcium) 20 Mg Tablet, 40 MG PO QHS Esomeprazole Magnesium (Nexium) 40 Mg Cap, 40 MG PO DAILY, (Reported) Hydroxychloroquine Sulfate (Hydroxychloroquine Sulfate) 200 Mg Tablet, 200 PO BID, (Reported) Meloxicam (Mobic) 7.5 Mg Tablet, 7.5 MG PO BID, (Reported) WITH FOOD Mycophenolate Mofetil (Cellcept) 500 Mg Tab, 250 MG PO BID, (Reported) Pregabalin (Pregabalin) 50 Mg Capsule, 50 MG PO BID, (Reported) TAKES UP TO TID IF SHINGLES FLARE UP Allergies Coded Allergies: Corticosteroids (Glucocorticoids) (Verified Adverse Reaction, Unknown, Due to Myasthenia Gravis, 12/16/18) LIZANDRO MARIANO MD Oct 27, 2019 14:44
[2019-10-27] MEDS ORDERED: ATOR40TA75 PO (17:09)
[2019-10-27] MEDS ORDERED: ATORVASTATIN 20 MG TAB PO SCH (21:00)
[2019-10-28 14:09] LABS: HOMOCYST(E)INE SERUM 23.8 umol/L (0.0-19.2); LIPOPROTEIN (a) 34.5 nmol/L (<75.0)
--- NOTE | 2019-10-29 18:06 | ECGEPIP ---
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
== END 2019-10-27 13:10 | disposition home or self-care (01) | DRG 65 ==
LOC: EDBD 10:14 → M ED 10:14 → M ED INP 15:52 → ENRESERV 16:59 → M PCU 17:47
PROVIDERS: ADMIT Neuromusculoskeletal Medicine & OMM; ATTEND Internal Medicine
DX: I63.9 Cerebral infarction, unspecified (principal); I48.92 Unspecified atrial flutter; B02.9 Zoster without complications; G70.00 Myasthenia gravis without (acute) exacerbation; I65.21 Occlusion and stenosis of right carotid artery; L92.0 Granuloma annulare; I48.91 Unspecified atrial fibrillation; I10 Essential (primary) hypertension; E78.5 Hyperlipidemia, unspecified; Z79.899 Other long term (current) drug therapy; Z79.82 Long term (current) use of aspirin; Z88.8 Allergy status to other drugs, medicaments and biological substances; K21.9 Gastro-esophageal reflux disease without esophagitis; E55.9 Vitamin D deficiency, unspecified; Z87.891 Personal history of nicotine dependence

== ENCOUNTER → 2019-12-09 | Outpatient (REF) | payer MEDICARE, BC ==
[~2019-12-09] MED LIST changes: +ASPI81CH8 PO; +ATOR40TA75 PO; +HYDR200T3 PO; +MOBI4TAB PO; +PREG50CA2 PO
[2020-01-07 22:43] LABS: BASO # 0.1 10^3/uL (0.0-0.2); BASO % 0.9 % (0.0-1.0); EOS # 0.1 10^3/uL (0.0-0.5); EOS % 2.3 % (0.0-3.0); HEMATOCRIT 48.9 % (42.0-52.0); LYMPH % 18.6 % (24.0-44.0); MEAN CORPUSCULAR HEMOGLOBIN 29.4 pg (27.0-33.0); MEAN CORPUSCULAR HGB CONC 32.7 g/dl (32.0-36.5); MEAN CORPUSCULAR VOLUME 89.7 fl (80.0-96.0); MONO # 0.6 10^3/uL (0.0-0.8); MONO % 11.7 % (0.0-5.0); NEUTROPHILS # 3.5 10^3/uL (1.5-8.5); NEUTROPHILS % 65.7 % (36.0-66.0); PLATELET COUNT, AUTOMATED 205 10^3/uL (150-450); RED BLOOD COUNT 5.45 10^6/uL (4.30-6.10); WHITE BLOOD COUNT 5.3 10^3/uL (4.0-10.0)
== END ==
LOC: M LABDRWAD 09:00
PROVIDERS: ATTEND Psychiatry & Neurology Neurology
DX: G70.00 Myasthenia gravis without (acute) exacerbation (principal)

== ENCOUNTER → 2019-12-24 | Outpatient (CLI) | payer MEDICARE, BC ==
--- NOTE | 2020-01-29 10:09 | REP ---
BILATERAL CAROTID DUPLEX ULTRASOUND FINDINGS: There is mild atheromatous plaque right coronary artery extending from the common carotid artery into the proximal ICA and proximal ECA. This plaque is slightly heavier in the bulb than in the distal CCA. On the left, there is a heavy atheromatous plaque in the distal common carotid artery. There is moderate atheromatous plaque in the bulb extending into the proximal ICA and ECA. PEAK FLOW VELOCITY ANALYSIS RIGHT LEFT Peak ICA flow velocity 46.0 cm/s 59.3 cm/s Diastolic ICA flow velocity 15.5 cm/s 21.9 cm/s ICA/CCA ratio 0.66 0.78 Peak ECA flow velocity 84 cm/s 55.7 cm/s Peak CCA flow velocity 69.4 cm/s 76.4 cm/s There is antegrade flow in the vertebral arteries bilaterally. IMPRESSION: There is no significant stenosis on the right or the left by peak flow velocity analysis. Depending on clinical circumstances, follow-up MRA or CTA might be considered for further evaluation. VILMA
== END ==
LOC: M RAD 13:40
PROVIDERS: ATTEND Physician Assistant
DX: Z86.79 Personal history of other diseases of the circulatory system (principal); I63.9 Cerebral infarction, unspecified

== ENCOUNTER → 2020-02-11 | Outpatient (REF) | payer MEDICARE, BC ==
[2020-02-11 13:16] LABS: BASO # 0.1 10^3/uL (0.0-0.2); EOS # 0.2 10^3/uL (0.0-0.5); EOS % 3.8 % (0.0-3.0); HEMATOCRIT 44.1 % (42.0-52.0); HEMOGLOBIN 14.2 g/dl (13.5-17.5); LYMPH # 0.8 10^3/uL (1.5-5.0); LYMPH % 15.1 % (24.0-44.0); MEAN CORPUSCULAR HEMOGLOBIN 28.9 pg (27.0-33.0); MEAN CORPUSCULAR HGB CONC 32.2 g/dl (32.0-36.5); MEAN CORPUSCULAR VOLUME 89.8 fl (80.0-96.0); MONO # 0.6 10^3/uL (0.0-0.8); MONO % 11.5 % (0.0-5.0); NEUTROPHILS # 3.4 10^3/uL (1.5-8.5); NEUTROPHILS % 67.4 % (36.0-66.0); PLATELET COUNT, AUTOMATED 208 10^3/uL (150-450); RED BLOOD COUNT 4.91 10^6/uL (4.30-6.10)
[2020-02-11 13:50] LABS: ALBUMIN 3.4 GM/DL (3.2-5.2); ALT/SGPT 22 U/L (12-78); BILIRUBIN,TOTAL 0.4 MG/DL (0.2-1.0); BLOOD UREA NITROGEN 19 MG/DL (7-18); CALCIUM LEVEL 8.9 MG/DL (8.8-10.2); CARBON DIOXIDE LEVEL 30 MEQ/L (21-32); CHLORIDE LEVEL 107 MEQ/L (98-107); CHOLESTEROL LEVEL 96 MG/DL (<200); CREATININE FOR GFR 1.05 MG/DL (0.70-1.30); GLOMERULAR FILTRATION RATE > 60.0 (>42); GLUCOSE, FASTING 72 MG/DL (70-100); HDL CHOLESTEROL 40 MG/DL (>40); LDL CHOLESTEROL 31 MG/DL (<100); NON-HDL-C 56 MG/DL; POTASSIUM SERUM 4.1 MEQ/L (3.5-5.1); SODIUM LEVEL 141 MEQ/L (136-145); TOTAL PROTEIN 6.2 GM/DL (6.4-8.2); TRIGLYCERIDES LEVEL 125 MG/DL (<150)
[2020-02-11 14:02] LABS: HEMOGLOBIN A1c 5.3 %
== END ==
LOC: M LABDRWAD 12:34
PROVIDERS: ATTEND Nurse Practitioner Family
DX: G70.00 Myasthenia gravis without (acute) exacerbation (principal); E78.2 Mixed hyperlipidemia; R73.01 Impaired fasting glucose

== ENCOUNTER → 2020-04-27 | Outpatient (REF) | payer MEDICARE, BC ==
[2020-04-27 12:59] LABS: BASO # 0.1 10^3/uL (0.0-0.2); EOS # 0.1 10^3/uL (0.0-0.5); EOS % 2.5 % (0.0-3.0); HEMATOCRIT 47.4 % (42.0-52.0); LYMPH # 0.8 10^3/uL (1.5-5.0); LYMPH % 14.3 % (24.0-44.0); MEAN CORPUSCULAR HEMOGLOBIN 28.1 pg (27.0-33.0); MEAN CORPUSCULAR HGB CONC 31.6 g/dl (32.0-36.5); MEAN CORPUSCULAR VOLUME 88.8 fl (80.0-96.0); MONO # 0.6 10^3/uL (0.0-0.8); MONO % 10.9 % (0.0-5.0); NEUTROPHILS # 3.7 10^3/uL (1.5-8.5); NEUTROPHILS % 70.2 % (36.0-66.0); PLATELET COUNT, AUTOMATED 216 10^3/uL (150-450); RED BLOOD COUNT 5.34 10^6/uL (4.30-6.10); WHITE BLOOD COUNT 5.3 10^3/uL (4.0-10.0)
== END ==
LOC: M LABDRWAD 12:28
PROVIDERS: ATTEND Psychiatry & Neurology Neurology
DX: G70.00 Myasthenia gravis without (acute) exacerbation (principal)

== ENCOUNTER → 2020-05-12 | Outpatient (CLI) | payer MEDICARE, BC ==
[~2020-05-12] MED LIST changes: +ECOT81TA5 PO; +PLAV1TAB2 PO
[2020-05-12 13:31] LABS: APPEARANCE, URINE CLEAR (CLEAR); BACTERIA, URINE AUTO NEGATIVE (NEGATIVE); BILIRUBIN, URINE AUTO NEGATIVE (NEGATIVE); BLOOD, URINE BLOOD NEGATIVE (NEGATIVE); COLOR, URINE YELLOW (YELLOW); GLUCOSE, URINE (UA) AUTO NEGATIVE (NEGATIVE); KETONE, URINE AUTO NEGATIVE (NEGATIVE); LEUKOCYTE ESTERASE, URINE AUTO NEGATIVE (NEGATIVE); MUCUS, URINE SMALL (NEGATIVE); NITRITE, URINE AUTO NEGATIVE (NEGATIVE); PROTEIN, URINE AUTO NEGATIVE (NEGATIVE); RBC, URINE AUTO 0 /HPF (0-3); SQUAMOUS EPITHELIAL CELL UR AU 0 /HPF (0-6); UROBILINOGEN, URINE AUTO 0.2 mg/dL (0.0-2.0); WBC, URINE AUTO 0 /HPF (0-3)
[2020-05-12 13:32] LABS: BASO # 0.1 10^3/uL (0.0-0.2); BASO % 1.2 % (0.0-1.0); EOS # 0.1 10^3/uL (0.0-0.5); EOS % 2.6 % (0.0-3.0); HEMATOCRIT 46.9 % (42.0-52.0); HEMOGLOBIN 14.9 g/dl (13.5-17.5); LYMPH # 0.9 10^3/uL (1.5-5.0); MEAN CORPUSCULAR HEMOGLOBIN 28.3 pg (27.0-33.0); MEAN CORPUSCULAR HGB CONC 31.8 g/dl (32.0-36.5); MONO # 0.6 10^3/uL (0.0-0.8); MONO % 12.1 % (0.0-5.0); NEUTROPHILS # 3.2 10^3/uL (1.5-8.5); NEUTROPHILS % 65.1 % (36.0-66.0); PLATELET COUNT, AUTOMATED 188 10^3/uL (150-450); RED BLOOD COUNT 5.27 10^6/uL (4.30-6.10)
[2020-05-12 13:42] LABS: INR 0.92; PROTHROMBIN TIME 12.5 SECONDS (12.5-14.3)
[2020-05-12 13:43] LABS: PARTIAL THROMBOPLASTIN TIME 26.6 SECONDS (24.2-38.5)
[2020-05-12 14:04] LABS: BLOOD UREA NITROGEN 16 MG/DL (7-18); CALCIUM LEVEL 9.3 MG/DL (8.8-10.2); CARBON DIOXIDE LEVEL 31 MEQ/L (21-32); CHLORIDE LEVEL 104 MEQ/L (98-107); CREATININE FOR GFR 1.07 MG/DL (0.70-1.30); GLOMERULAR FILTRATION RATE > 60.0 (>42); GLUCOSE, FASTING 94 MG/DL (70-100); POTASSIUM SERUM 4.5 MEQ/L (3.5-5.1); SODIUM LEVEL 139 MEQ/L (136-145)
--- NOTE | 2020-05-12 16:29 | REP ---
INDICATION: PRE OP. COMPARISON: Comparison chest x-ray October 26, 2019. TECHNIQUE: Two views.. FINDINGS: The lungs are well inflated and free of infiltrate. The pleural angles are sharp. The heart size is normal. Pulmonary vasculature is not increased. No significant bony abnormality is seen. There are degenerative changes in the thoracic spine and aorta. There is an orthopedic anchor in the humeral head on the right. Minimal linear pleuroparenchymal fibrosis is present at the right base unchanged. IMPRESSION: No active disease.. <Electronically signed by Lalo Trammell > 05/12/20 [id number]
== END ==
LOC: M ADAMS 10:37
PROVIDERS: ATTEND Nurse Practitioner Family
DX: Z01.818 Encounter for other preprocedural examination (principal)

== ENCOUNTER → 2020-05-18 | Outpatient (CLI) | payer MEDICARE, BC ==
[~2020-05-18] MED LIST changes: -CLIN150C14 PO; +CLIN150C15 PO
== END ==
LOC: M LABSMTC 09:34
PROVIDERS: ATTEND Anesthesiology
DX: Z01.812 Encounter for preprocedural laboratory examination (principal); M17.11 Unilateral primary osteoarthritis, right knee; Z11.52 Encounter for screening for COVID-19
CPT/HCPCS: 36415; 85652; U0003

== ENCOUNTER → 2020-05-18 | Outpatient (REF) | payer MEDICARE, BC | LOC: M LABDRWAD 12:25 | PROVIDERS: ATTEND Orthopaedic Surgery | DX: Z01.812 Encounter for preprocedural laboratory examination (principal); M17.11 Unilateral primary osteoarthritis, right knee ==

== ENCOUNTER 2020-05-23 05:59 | Inpatient (IN) | payer MEDICARE, BC ==
--- NOTE | 2020-05-19 14:43 | HPE ---
HISTORY AND PHYSICAL DATE OF ANTICIPATED ADMISSION: 05/23/2020 ATTENDING PHYSICIAN: Dr. Buddy Silva. CHIEF COMPLAINT: Right knee pain and stiffness. HISTORY: Patient is a pleasant 80-year-old male with progressively worsening right knee pain and stiffness. He failed to improve with conservative measures. He continues to have symptoms with weightbearing activities and activities of daily living. He has consented for an elective right total knee arthroplasty with Dr. Silva for his continued symptoms. Medical optimization completed with Family Nurse Practitioner Bethany Chamberlain and was reviewed during today's visit. CURRENT MEDICATIONS: 1. Atorvastatin 40 mg daily. 2. Mycophenolate 500 mg daily. 3. Nexium 40 mg daily. 4. Lyrica 50 mg daily. 5. Aspirin 81 mg daily. 6. Plavix 75 mg daily. 7. Pyridostigmine 60 mg. 8. Plaquenil 200 mg daily. 9. Multivitamin. ALLERGIES: Steroids. CHRONIC MEDICAL CONDITIONS: 1. Asthma. 2. Hypercholesterolemia. 3. Gastroesophageal reflux disease. 4. Myasthenia gravis. 5. History of stroke. 6. Right-sided macular degeneration. PAST SURGICAL HISTORY: 1. Right knee arthroscopy. 2. Umbilical hernia repair. 3. Right shoulder surgery. 4. Left-sided cataract removal. 5. Colonoscopy. SOCIAL HISTORY: Patient is and lives at home with spouse. Patient is a former smoker, quit in 1990. Does not use alcohol. REVIEW OF SYSTEMS: Patient denies fevers, chills, nausea, vomiting, or diarrhea. Denies chest pain, shortness of breath, lightheadedness, dizziness, or headaches. Denies any recent upper respiratory or urinary tract infection symptoms. He does continue to have right knee pain with weightbearing activities and activities of daily living. PHYSICAL EXAMINATION: General: Well-developed, well-nourished male in no apparent distress. He is alert, oriented, and cooperative. Mood and affect are appropriate. Vital signs: Height 5 foot 9 inches, weight 197 pounds, blood pressure 120/70, heart rate 80, respirations 20. Neck: Supple without lymphadenopathy. Heart: Regular rate and rhythm. Lungs: Clear to auscultation bilaterally. Breathing is regular and nonlabored. Abdomen: Soft and nontender. Bowel sounds are present. Musculoskeletal: Right knee exhibits no erythema, edema, or ecchymosis. There is tenderness along the medial joint line. Patient can extend knee fully and flex to about 100 degrees. Right lower extremity strength is 5/5. No hip irritable elicited today with range of motion testing. Calf is soft and nontender without evidence of DVT. He is neurovascularly intact distally. LABORATORY DATA: Chest x-ray: No active disease. EKG: Sinus rhythm with PVCs. Prothrombin time 12.5. INR 0.92. PTT 26.6 seconds. Basic metabolic profile: Fasting glucose 94, BUN 16, creatinine 1.07, GFR greater than 60, sodium 139, potassium 4.5, chloride 104, CO2 31, anion gap decreased at 4, calcium 9.3. Complete blood count: WBC 5, RBC 5.27, hemoglobin 14.9, hematocrit 46.9, platelets 188. IMPRESSION: Right knee osteoarthritis with x-rays notable for end-stage degenerative changes. PLAN: Patient has consented for an elective right total knee arthroplasty with Dr. Silva for his continued symptoms. Medical optimization completed with Family Nurse Practitioner Bethnay Chamberlain. Patient will use his Hibiclens and Bactroban as directed. He will be n.p.o. after midnight and was instructed to take a medication with a small sip of water by his primary clinical care coordinator. Otherwise he will follow his primary clinical care coordinator's recommendations on how to take daily medications and when to stop anticoagulants. Patient is going for his COVID test later on today.
[2020-05-23] VITALS (7 sets, daily range): BP systolic 112–143; BP diastolic 67–74
[~2020-05-23] VITALS: Ht 175.3 cm; Wt 88.9 kg
[2020-05-23] MEDS ORDERED: PERCOCET 5MG/325MG TAB PO ONE (07:00)
[2020-05-23] MEDS ORDERED: ceFAZolin SOD 2 GM in IV 1 EA IV ONE (07:00)
[2020-05-23] MEDS ORDERED: LR 1,000 ML IV ONE (07:00)
[2020-05-23] MEDS ORDERED: CelecoXIB 400 MG CAP PO ONE (07:00)
[2020-05-23] MEDS ORDERED: MIDAZOLAM INJ 2MG/2ML VIAL (J2250 PER 1MG) IV PRN (07:01)
[2020-05-23] MEDS ORDERED: fentaNYL 100 MCG/2 ML INJECTION (J3010) IV PRN ×2 (07:01→11:00)
[2020-05-23] MEDS ORDERED: BUPIVACAINE/EPIN 0.25% 30 ML VIAL As Ordered ONE (07:03)
[2020-05-23] MEDS ORDERED: TRANEXAMIC ACID 100 MG/ML 10ML VIAL As Ordered ONE (07:03)
[2020-05-23] MEDS ORDERED: BUPIVACAINE HCL 0.25% 30ML VIAL As Ordered ONE (07:04)
[2020-05-23] MEDS ORDERED: ceFAZolin 1GM VIAL (J0690 PER 500MG) As Ordered ONE (07:04)
[2020-05-23] MEDS ORDERED: EPINEPHrine INJ 1 MG/ML 1ML AMP As Ordered ONE ×2 (07:05→07:21)
[2020-05-23] MEDS ORDERED: propofoL 200 MG/20 ML VIAL As Ordered ONE (07:12)
[2020-05-23] MEDS ORDERED: LIDOCAINE 2% 100MG/5ML SDV (FOR ANES.) As Ordered ONE (07:12)
[2020-05-23] MEDS ORDERED: MIDAZOLAM INJ 2MG/2ML VIAL (J2250 PER 1MG) As Ordered ONE (07:12)
[2020-05-23] MEDS ORDERED: fentaNYL 100 MCG/2 ML INJECTION (J3010) As Ordered ONE (07:13)
[2020-05-23] MEDS ORDERED: BUPIVACAINE LIPOSOME/PF 1.3% 20ML VIAL (13.3MG/ML)(EXPAREL)(C9290 PER1MG) As Ordered ONE (07:17)
[2020-05-23] MEDS ORDERED: dexameTHASONE 10MG/1ML VIAL PRES.FREE (J1100 PER 1MG) As Ordered ONE (07:20)
[2020-05-23] MEDS ORDERED: ROPIvacaine 0.5% 30ML INJECTION (J2795 PER 1MG) As Ordered ONE (07:20)
[2020-05-23] MEDS ORDERED: LIDOCAINE 1% MDV 20ML VIAL As Ordered ONE (07:21)
[2020-05-23] MEDS ORDERED: ROPIvacaine 0.5% 30ML INJECTION (J2795 PER 1MG) XX ONE (07:30)
[2020-05-23] MEDS ORDERED: EPINEPHrine INJ 1 MG/ML 1ML AMP XX ONE (07:30)
[2020-05-23] MEDS ORDERED: dexameTHASONE 10MG/1ML VIAL PRES.FREE (J1100 PER 1MG) XX ONE (07:30)
[2020-05-23] MEDS: ATORVASTATIN 20 MG TAB PO SCH (09:00)
[2020-05-23] MEDS: MYCOPHENOLATE MOFETIL 250 MG CAP (J7517) PO SCH ×2 (09:00→20:19)
[2020-05-23] MEDS: PANTOPRAZOLE 40MG TAB (PROTONIX) PO SCH (09:00)
[2020-05-23] MEDS ORDERED: ONDANSETRON 4MG/2ML VIAL IV PRN ×2 (10:00→11:00)
[2020-05-23] MEDS ORDERED: PERCOCET 5MG/325MG TAB PO PRN (10:00)
[2020-05-23] MEDS ORDERED: HYDROMORPHONE HCL 0.5 MG/ 0.5 ML SYRINGE (J1170 PER 1) IV PRN ×2 (10:00)
[2020-05-23] MEDS: LR 1,000 ML IV SCH ×2 (10:00→20:00)
[2020-05-23] MEDS ORDERED: ACETAMINOPHEN TAB 650MG DOSE (2X325MG) PO PRN (10:00)
--- NOTE | 2020-05-23 10:06 | HPEPDOC ---
[facility] Medical History & Physical Date of Admission May 23, 2020 Date of Service: May 23, 2020 Attending Physician: Martina Fong MD History and Physical MEDICAL H&P HPI: Patient is a pleasant 80-year-old male with PMH OA of right knee, asthma, HLD, GERD, myasthenia gravis, Hx of CVA, macular degeneration who had elective total right knee replacement 05/23/20. Patient had had progressive pain of the right l ower ext and had failed to improve with conservative measures. He continued to have symptoms with weightbearing activities and activities of daily living. He was scheduled to have surgery today with Dr. Silva, orthopedic surgery. Intra and post-operatively there were no complications. The patient appears HD stable, at this baseline mentation. He denied chest pain, n/v/d, fevers, chills, abdominal pain, shortness of breath. Medicine team was consulted to help follow patient while admitted. ROS: Neg except for what is mentioned above PMH: 1. Asthma. 2. HLD 3. GERD 4. Myasthenia gravis. 5. History of stroke. 6. Right-sided macular degeneration. PAST SURGICAL HISTORY: 1. Right knee arthroscopy. 2. Umbilical hernia repair. 3. Right shoulder surgery. 4. Left-sided cataract removal. 5. Colonoscopy. SOCIAL HISTORY: Prior smoker 1 PPD for 20 years. Quit in 1993. Denies alcohol, drug use history. Lives with his . Has walker, cane and [employer]over[employer] at home but does not use it often. Follows regularly with Dr. Portillo (neurology) and PCP. FAMILY HISTORY: mother- unknown, at unknown age father- CAD. at 87 y/o ALLERGIES: Please see below. HOME MEDICATIONS: Please see below. PHYSICAL EXAMINATION: VS: Please see below CONSTITUTIONAL: No acute distress, resting comfortably, AAO x 3 EYES: PERRLA, EOM intact HENT, MOUTH: Normocephalic, atraumatic, moist mucous membranes, NECK: SUPPLE, no JVD, no lymphadenopathy, no carotid bruit CV: Regular rate and rhythm, S1S2 normal, no murmurs/rubs/gallops RESPIRATORY: Clear to auscultation bilaterally, no rales/rhonchi/wheezes GI: BS positive in 4 quadrants, soft, nontender, nondistended, no rebound or guarding, no organomegaly : Deferred MUSCULOSKELETAL: Right knee incision is large, clean, nonsuppurative. ROM not tested. No cyanosis, clubbing, swelling, joint deformity, extremity edema INTEGUMENTARY: Intact, no rashes, no lesions, no erythema NEUROLOGIC: Cranial Nerves II-XII are intact, no focal deficits PSYCHIATRIC: Mood and affect are normal LABORATORY DATA: Please see below IMAGING: Right knee XR post-op: Three views of the right knee demonstrate right knee arthroplasty components in good position relative to the [place] bones and each other. Postoperative intra-articular and periarticular good air is seen. Some vascular calcification is noted. ASSESSMENT: 80 y/o M with PMH above POD O for total right knee replacement. PLAN: OA right knee s/p total right knee replacement -POD 0 -PT/OT, pain control, ASA BID -Ortho primary Asthma -Currently saturating well on RA -Can add albuterol PRN if needed HLD -C/w statin GERD -PPI Myasthenia gravia -C/w home meds Hx of stroke -C/w plavix, ASA, statin DVT px -ASA BID DISPOSITION: Orthopedic surgery primary. Thank you kindly for this consult. Will continue to follow while admitted. Vital Signs Vital Signs Date Time Temp Pulse Resp B/P (MAP) Pulse Ox O2 Delivery O2 Flow Rate FiO2 05/23/20 09:35 97.2 69 14 97/50 (66) 95 Room Air 05/23/20 07:40 3 Home Medications Scheduled Aspirin (Ecotrin) 81 Mg Tablet.dr 81 MG PO DAILY Atorvastatin Calcium (Atorvastatin Calcium) 40 Mg Tablet, 1 TAB PO DAILY Clopidogrel Bisulfate (Plavix) 75 Mg Tablet, 75 MG PO DAILY Esomeprazole Magnesium (Nexium) 40 Mg Cap, 40 MG PO DAILY Mycophenolate Mofetil (Cellcept) 500 Mg Tab, 500 MG PO BID Pregabalin (Pregabalin) 50 Mg Capsule, 50 MG PO BID TAKES UP TO TID IF SHINGLES FLARE UP Allergies Coded Allergies: Corticosteroids (Glucocorticoids) (Verified Adverse Reaction, Unknown, Due to Myasthenia Gravis, 05/16/20) A-FIB/CHADSVASC A-FIB History Current/History of A-Fib/PAF?: No Current PO Anticoag Therapy: No Age/Risk Factor Scoring CHADSVASC: CHADSVASC Response (Comments) Value Age Risk Factor Age >/= 75 years old 2 Gender Risk Factor Male 0 Hx of CHF No 0 Hx of HTN Yes 1 Hx of Stroke/TIA/or VTE Yes 2 Hx of Diabetes No 0 Hx of Vascular Disease No 0 Total 5 Treatment Treatment ordered: Other Other anticoagulant ordered: Martina Smith MD May 23, 2020 10:06
--- NOTE | 2020-05-23 10:18 | REP ---
INDICATION: POST OP IN PACU. COMPARISON: No comparison knee radiographs.. FINDINGS: Three views of the right knee demonstrate right knee arthroplasty components in good position relative to the [place] bones and each other.. Postoperative intra-articular and periarticular good air is seen. Some vascular calcification is noted.. . IMPRESSION: Status post right knee arthroplasty.. <Electronically signed by Lalo Trammell > 05/23/20 1014
--- NOTE | 2020-05-23 10:41 | RO ---
OPERATIVE NOTE DATE OF OPERATION: 05/23/2020 PREOPERATIVE DIAGNOSIS: Osteoarthritis of the right knee. POSTOPERATIVE DIAGNOSIS: Osteoarthritis of the right knee. PROCEDURE: Right total knee replacement. SURGEON: Buddy Silva M.D. [employer]: Liseth Whitten PA-C ANESTHESIA: Spinal with block. SPECIMENS: Knee contents. ESTIMATED BLOOD LOSS: Less than 60 mL, replaced with crystalloid. DRAINS: None. COMPLICATIONS: No complications. TOURNIQUET TIME: 30 minutes at 250. COMPONENTS USED: Include Attune posterior stabilized, size 7 right tumescent femoral component, Attune rotating platform, posterior stabilized, size 7 tibial insert, Attune, size 7 cemented tibial base, Attune. Pinning system: LeadPages radiopaque bone cement. INDICATIONS: Progressive discomfort in the right knee in a 80-year-old gentleman. Consent reviewed in detail including a felicity discussion of the pathology involved, the procedure proposed, alternatives including doing nothing, risks including but not limited to pain, failure, infection, need for additional surgery, incomplete relief and other issues. The patient agrees to proceed. DESCRIPTION OF PROCEDURE: Identified in the holding area, site and side verified. Block was administered. He was brought into the operating room, spinal anesthesia administered, positioned on the operating table for exposure of the right knee, tourniquet high on the right thigh, sterilely prepped and draped in the usual fashion for exposure of the right knee. Once this was accomplished, timeout was accomplished. Next, I infiltrated the line of the incision, a standard midline parapatellar arthrotomy with 1/4% Marcaine with epinephrine. I made the incision with a 10 blade knife developed down through skin and subcuticular tissues. Mr. Whitten assisted with the rake retractors for exposure, developed the incision along the extensor mechanism. Once this was accomplished, a fresh knife was utilized to make a medial parapatellar arthrotomy. Next, the patella was everted, infrapatellar fat pad was removed and debrided. A medial release was accomplished sharply using the 10 blade knife. The anterior aspect of the femur was cleared of soft tissue for sizing. The patella was everted. The knee was placed in a flexed position. The femoral canal was opened with the canal opening drill. Hohmann retractors were placed. Intramedullary guide was installed. Intramedullary guide was pinned in place by Mr. Whitten, distal femoral cut made by Mr. Whitten using the oscillating saw while I secured the Hohmann retractors. Next, we verified alignment of the cut. Next, we then placed the knee in a hyperflexed position, placed an AP sizing guide and predicted a size 7 femoral component. Next, appropriate pins were drilled. The 4-in-1 cutting block was installed, drilled into place with screw pins and Mr. Whitten secured the Hohmann retractors while I made the anterior-posterior cuts followed by the chamfer cuts, followed by the anterior recut and removed this jig. Next, once this was accomplished, an extramedullary tibial alignment guide was placed, 3 degrees posterior slope, otherwise neutral alignment, varus, valgus, pinned into place. Drop brittany utilized to verify alignment. Also as this was accomplished, we took 4 off the bad side using the slotted guide. Next, once it was pinned into place, we placed Hohmann retractors and a posterior retractor and I made the cuts using the oscillating saw, removing the proximal tibia. Next, once this was accomplished, laminar spreaders were utilized by Mr. Whitten and I then removed the meniscus using a 15 blade bilaterally. The posterior femoral condyles spurs were debrided using the curved osteotome and removed using a curette and Sesay-Sutherland. Next, once this was accomplished, the posterior capsule was anesthetized using Exparel solution. Next, once this was accomplished, the anterior-posterior sizing guide was taken. A 6 mm spacer, polyethylene was selected based on this. Next, once this was accomplished, a size 7 blade was applied to the tibia, drilled into place, drill guide installed with a mallet. The tibial canal drill was utilized to ream the proximal tibial canal followed by the broach which was left in place. Next, once this was accomplished, a notch guide was applied to the distal femur, secured using pins. A notch cut was made using oscillating saw by myself and Mr. Whitten. Rasps were utilized to further contour. Notch cut guide removed. A femoral trial component was installed. The tibial trial component was installed. The knee was placed through a range of motion. We felt that a 6 mm polyethylene was appropriate and stable with full extension and good stability. Next, we inspected the undersurface of the patella which seemed to be free from eburnations and significant arthritic change, no spurring whatsoever. I elected not to resurface the patella for this reason. Next, the distal femoral post holes were drilled using the step drill. All trial components were removed. Mr. Whitten stepped to back table to prepare the bone cement. I applied TXA solution to the bone surfaces. I elevated the leg, inflated the tourniquet to 250 and then positioned Hohmann retractors and posterior retractors and utilized pulse lavage to prepare the bone surfaces, dried using suction and lap pads. Next, once the cement was the appropriate consistency, I applied cement to the proximal tibia, cemented in the tibial component, cleared excess cement, ensured that the tibia was down. Next, the femoral component was then obtained. We had placed bone cement on the posterior condyles. I placed bone cement on the anterior and distal femur and cemented the femoral component into place and verified it was down. I cleared excess cement. Next, the nontrial polyethylene was then placed within the tibia and the knee was reduced, extended, placed in extension. Next, pulse lavage irrigation was accomplished. TXA was placed in the wound, allowed to stand for one minute. Exparel solution was utilized to anesthetize the soft tissues. Next, once the wound was closed, tourniquet was deflated. The arthrotomy was closed with Stratafix. The deep dermis was closed with Vicryl. The skin was closed using Prineo dressing. Once the dressing was applied and dried, the patient was able to be moved to the hospital bed, moved to recovery room in good condition. For further details, please refer to the medical record. Mr. Whitten was present and participated in the entirety of the case.
[2020-05-23] MEDS ORDERED: oxyCODONE 5MG TAB PO PRN (11:00)
[2020-05-23] MEDS ORDERED: LR 1,000 ML IV SCH (11:00)
[2020-05-23] MEDS ORDERED: MEPERIDINE INJ 25 MG/ML VIAL (J2175) IV PRN (11:00)
[2020-05-23] MEDS ORDERED: METOCLOPRAMIDE INJ 10MG/2ML VIAL (J2765 PER 1) IV PRN (11:00)
[2020-05-23] MEDS: PERCOCET 5MG/325MG TAB PO PRN ×2 (14:40→20:45)
[2020-05-23] MEDS: ceFAZolin SOD 2 GM in IV 1 EA IV SCH (16:29)
[2020-05-23] MEDS: ASPIRIN 81 MG ENTERIC TAB PO SCH (20:19)
[2020-05-23] MEDS: PREGABALIN 50 MG CAP (LYRICA) PO SCH (20:19)
[2020-05-24] MEDS: ceFAZolin SOD 2 GM in IV 1 EA IV SCH (00:45)
[2020-05-24] MEDS ORDERED: CALCIUM CARBONATE 500 MG CHEW U/D PO PRN (00:45)
[2020-05-24 02:00] VITALS: BP 120/58
[2020-05-24] MEDS: LR 1,000 ML IV SCH (05:08)
[2020-05-24 06:00] VITALS: BP 119/60
[2020-05-24] MEDS ORDERED: PERC5TAB12 PO (06:05)
[2020-05-24] MEDS: ASPIRIN 81 MG ENTERIC TAB PO SCH (08:03)
[2020-05-24] MEDS: MYCOPHENOLATE MOFETIL 250 MG CAP (J7517) PO SCH (08:03)
[2020-05-24] MEDS: ATORVASTATIN 20 MG TAB PO SCH (08:04)
[2020-05-24] MEDS: PREGABALIN 50 MG CAP (LYRICA) PO SCH (08:04)
[2020-05-24] MEDS: PANTOPRAZOLE 40MG TAB (PROTONIX) PO SCH (08:04)
[2020-05-24] MEDS: PERCOCET 5MG/325MG TAB PO PRN (08:05)
[2020-05-24] MEDS ORDERED: CLOPIDOGREL 75 MG TAB PO SCH (09:00)
[2020-05-24 10:00] VITALS: BP 94/66
--- NOTE | 2020-05-26 10:21 | DSES ---
DISCHARGE SUMMARY DATE OF ADMISSION: 05/23/2020 DATE OF DISCHARGE: 05/24/2020 ADMITTING DIAGNOSIS: Symptomatic right knee osteoarthritis. DISCHARGE DIAGNOSIS: Status post right total knee arthroplasty. OPERATION PERFORMED: Right total knee arthroplasty. HISTORY OF PRESENT ILLNESS: Mr. Roque is a pleasant 80-year-old male with continuing symptomatic right knee osteoarthritis. He consented for right total knee arthroplasty per Dr. Buddy Silva. Medical optimization per primary care. X-rays consistent with advanced osteoarthritis. OPERATION PERFORMED: Right total knee arthroplasty. HOSPITAL COURSE: The patient uneventfully underwent right total knee arthroplasty under spinal anesthesia with block. Our hospital team felt the patient was ready for discharge on 05/24/2020 with the following instructions: 1. Weightbearing as tolerated with walker. 2. Diet regular. 3. Percocet PRN pain. 4. Anticoagulation per protocol with MARIANNE stockings x30 days. 5. Change dressing in 3-4 days' time with follow up at orthopedic group 12-14 days for potential dressing takedown. The patient received a Prineo dressing. The patient is encouraged to contact our office with increased pain, numbness, tingling, redness, drainage, bleeding, fever greater than 101 or any further concerns. MTDD
== END 2020-05-24 12:05 | disposition home or self-care (01) | DRG 470 ==
LOC: M OR 05:59 → M MS5PR 11:05
PROVIDERS: ADMIT Orthopaedic Surgery; ATTEND Orthopaedic Surgery
PROC: 0SRC0J9 Replacement of Right Knee Joint with Synthetic Substitute, Cemented, Open Approach (ICD-10-PCS; principal; 2020-05-23 07:30)
DX: M17.11 Unilateral primary osteoarthritis, right knee (principal); G70.00 Myasthenia gravis without (acute) exacerbation; Z79.899 Other long term (current) drug therapy; Z79.82 Long term (current) use of aspirin; J45.909 Unspecified asthma, uncomplicated; E78.00 Pure hypercholesterolemia, unspecified; Z86.73 Personal history of transient ischemic attack (TIA), and cerebral infarction without residual deficits; H35.30 Unspecified macular degeneration; Z87.891 Personal history of nicotine dependence; K21.9 Gastro-esophageal reflux disease without esophagitis

== ENCOUNTER → 2020-08-18 | Outpatient (REF) | payer MEDICARE, BC ==
[~2020-08-18] MED LIST changes: -AMIT10TA PO; +AMIT10TA7 PO
[2020-08-18 13:17] LABS: BASO % 0.8 % (0.0-1.0); EOS # 0.1 10^3/uL (0.0-0.5); EOS % 2.7 % (0.0-3.0); HEMATOCRIT 47.5 % (42.0-52.0); HEMOGLOBIN 15.1 g/dl (13.5-17.5); LYMPH # 0.9 10^3/uL (1.5-5.0); LYMPH % 17.9 % (24.0-44.0); MEAN CORPUSCULAR HEMOGLOBIN 28.4 pg (27.0-33.0); MEAN CORPUSCULAR HGB CONC 31.8 g/dl (32.0-36.5); MEAN CORPUSCULAR VOLUME 89.5 fl (80.0-96.0); MONO # 0.5 10^3/uL (0.0-0.8); MONO % 9.6 % (2.0-8.0); NEUTROPHILS # 3.3 10^3/uL (1.5-8.5); NEUTROPHILS % 68.2 % (36.0-66.0); PLATELET COUNT, AUTOMATED 222 10^3/uL (150-450); RED BLOOD COUNT 5.31 10^6/uL (4.30-6.10); WHITE BLOOD COUNT 4.8 10^3/uL (4.0-10.0)
[2020-08-18 15:37] LABS: ALT/SGPT 22 U/L (12-78); BILIRUBIN,TOTAL 0.6 MG/DL (0.2-1.0); BLOOD UREA NITROGEN 14 MG/DL (7-18); CALCIUM LEVEL 9.3 MG/DL (8.8-10.2); CARBON DIOXIDE LEVEL 31 MEQ/L (21-32); CHLORIDE LEVEL 104 MEQ/L (98-107); CHOLESTEROL LEVEL 137 MG/DL (<200); CHOLESTEROL RISK RATIO 2.914 (<5); CREATININE FOR GFR 1.01 MG/DL (0.70-1.30); GLOMERULAR FILTRATION RATE > 60.0 (>42); GLUCOSE, FASTING 103 MG/DL (70-100); HDL CHOLESTEROL 47 MG/DL (>40); LDL CHOLESTEROL 69 MG/DL (<100); NON-HDL-C 90 MG/DL; POTASSIUM SERUM 4.1 MEQ/L (3.5-5.1); SODIUM LEVEL 140 MEQ/L (136-145); TOTAL PROTEIN 6.8 GM/DL (6.4-8.2); TRIGLYCERIDES LEVEL 103 MG/DL (<150)
== END ==
LOC: M SFHCADAM 10:12
PROVIDERS: ATTEND Family Medicine
DX: Z00.00 Encounter for general adult medical examination without abnormal findings (principal); G70.00 Myasthenia gravis without (acute) exacerbation

== ENCOUNTER → 2021-04-19 | Outpatient (REF) | payer MEDICARE, BC ==
[~2021-04-19] MED LIST changes: -CLIN150C15 PO; +CLIN150C17 PO; +GABA-283 PO; -GABA-845 PO
[2021-04-19 18:07] LABS: BASO # 0.1 10^3/uL (0.0-0.2); EOS # 0.2 10^3/uL (0.0-0.5); EOS % 3.3 % (0.0-3.0); HEMATOCRIT 47.7 % (42.0-52.0); HEMOGLOBIN 15.4 g/dl (13.5-17.5); LYMPH % 19.6 % (24.0-44.0); MEAN CORPUSCULAR HEMOGLOBIN 28.5 pg (27.0-33.0); MEAN CORPUSCULAR HGB CONC 32.3 g/dl (32.0-36.5); MEAN CORPUSCULAR VOLUME 88.2 fl (80.0-96.0); MONO # 0.5 10^3/uL (0.0-0.8); MONO % 10.4 % (2.0-8.0); NEUTROPHILS # 3.2 10^3/uL (1.5-8.5); NEUTROPHILS % 65.1 % (36.0-66.0); PLATELET COUNT, AUTOMATED 213 10^3/uL (150-450); RED BLOOD COUNT 5.41 10^6/uL (4.30-6.10); WHITE BLOOD COUNT 4.9 10^3/uL (4.0-10.0)
== END ==
LOC: M LABDRWAD 16:34
PROVIDERS: ATTEND Psychiatry & Neurology Neurology
DX: G70.00 Myasthenia gravis without (acute) exacerbation (principal)

== ENCOUNTER → 2021-05-31 | Outpatient (REF) | payer MEDICARE, BC ==
[~2021-05-31] MED LIST changes: -LEVO500T3 PO; +LEVO500T4 PO
[2021-05-31 13:26] LABS: EOS # 0.1 10^3/uL (0.0-0.5); EOS % 3.3 % (0.0-3.0); HEMATOCRIT 45.5 % (42.0-52.0); HEMOGLOBIN 14.8 g/dl (13.5-17.5); LYMPH # 0.9 10^3/uL (1.5-5.0); LYMPH % 20.2 % (24.0-44.0); MEAN CORPUSCULAR HEMOGLOBIN 28.5 pg (27.0-33.0); MEAN CORPUSCULAR HGB CONC 32.5 g/dl (32.0-36.5); MEAN CORPUSCULAR VOLUME 87.5 fl (80.0-96.0); MONO # 0.5 10^3/uL (0.0-0.8); NEUTROPHILS # 2.7 10^3/uL (1.5-8.5); NEUTROPHILS % 63.8 % (36.0-66.0); PLATELET COUNT, AUTOMATED 199 10^3/uL (150-450); WHITE BLOOD COUNT 4.2 10^3/uL (4.0-10.0)
[2021-05-31 14:24] LABS: ALBUMIN 3.7 GM/DL (3.2-5.2); ALT/SGPT 23 U/L (12-78); BILIRUBIN,TOTAL 0.6 MG/DL (0.2-1.0); BLOOD UREA NITROGEN 14 MG/DL (7-18); CALCIUM LEVEL 8.6 MG/DL (8.8-10.2); CARBON DIOXIDE LEVEL 30 MEQ/L (21-32); CHLORIDE LEVEL 104 MEQ/L (98-107); CHOLESTEROL LEVEL 111 MG/DL (<200); CHOLESTEROL RISK RATIO 2.921 (<5); CREATININE FOR GFR 1.06 MG/DL (0.70-1.30); GLOMERULAR FILTRATION RATE > 60.0 (>35); GLUCOSE, FASTING 93 MG/DL (70-100); HDL CHOLESTEROL 38 MG/DL (>40); LDL CHOLESTEROL 54 MG/DL (<100); NON-HDL-C 73 MG/DL; POTASSIUM SERUM 3.7 MEQ/L (3.5-5.1); SODIUM LEVEL 140 MEQ/L (136-145); TOTAL PROTEIN 6.6 GM/DL (6.4-8.2); TRIGLYCERIDES LEVEL 97 MG/DL (<150)
[2021-05-31 14:51] LABS: FOLATE 4.6 NG/ML; FREE T4 1.04 NG/DL (0.76-1.46); VITAMIN B12 LEVEL 591 PG/ML
== END ==
LOC: M SFHCADAM 10:53
PROVIDERS: ATTEND Family Medicine
DX: Z00.00 Encounter for general adult medical examination without abnormal findings (principal); R41.3 Other amnesia

== ENCOUNTER → 2021-08-01 | Outpatient (REF) | payer MEDICARE, BC ==
[2021-08-01 16:36] LABS: BASO # 0.1 10^3/uL (0.0-0.2); BASO % 0.9 % (0.0-1.0); EOS # 0.2 10^3/uL (0.0-0.5); EOS % 2.8 % (0.0-3.0); HEMATOCRIT 46.4 % (42.0-52.0); HEMOGLOBIN 15.4 g/dl (13.5-17.5); LYMPH % 18.8 % (24.0-44.0); MEAN CORPUSCULAR HEMOGLOBIN 28.6 pg (27.0-33.0); MEAN CORPUSCULAR HGB CONC 33.2 g/dl (32.0-36.5); MEAN CORPUSCULAR VOLUME 86.1 fl (80.0-96.0); MONO # 0.6 10^3/uL (0.0-0.8); MONO % 10.9 % (2.0-8.0); NEUTROPHILS # 3.5 10^3/uL (1.5-8.5); NEUTROPHILS % 65.7 % (36.0-66.0); PLATELET COUNT, AUTOMATED 198 10^3/uL (150-450); RED BLOOD COUNT 5.39 10^6/uL (4.30-6.10); WHITE BLOOD COUNT 5.3 10^3/uL (4.0-10.0)
[2021-08-01 17:10] LABS: ALBUMIN 3.7 GM/DL (3.2-5.2); BLOOD UREA NITROGEN 15 MG/DL (7-18); CALCIUM LEVEL 8.8 MG/DL (8.8-10.2); CARBON DIOXIDE LEVEL 33 MEQ/L (21-32); CHLORIDE LEVEL 106 MEQ/L (98-107); CREATININE FOR GFR 1.08 MG/DL (0.70-1.30); GLOMERULAR FILTRATION RATE > 60.0 (>35); GLUCOSE, FASTING 84 MG/DL (70-100); PHOSPHORUS LEVEL 2.6 MG/DL (2.5-4.9); POTASSIUM SERUM 3.9 MEQ/L (3.5-5.1); SODIUM LEVEL 141 MEQ/L (136-145)
== END ==
LOC: M SFHCADAM 14:31
PROVIDERS: ATTEND Physician Assistant Medical
DX: J06.9 Acute upper respiratory infection, unspecified (principal)

== ENCOUNTER → 2021-08-24 | Outpatient (CLI) | payer MEDICARE, BC ==
[2021-08-24 16:45] LABS: BLOOD UREA NITROGEN 13 MG/DL (7-18); CALCIUM LEVEL 9.4 MG/DL (8.8-10.2); CARBON DIOXIDE LEVEL 33 MEQ/L (21-32); CHLORIDE LEVEL 104 MEQ/L (98-107); CREATININE FOR GFR 1.08 MG/DL (0.70-1.30); GLOMERULAR FILTRATION RATE > 60.0 (>35); GLUCOSE, FASTING 87 MG/DL (70-100); POTASSIUM SERUM 4.1 MEQ/L (3.5-5.1); SODIUM LEVEL 140 MEQ/L (136-145)
== END ==
LOC: M ADAMS 15:05
PROVIDERS: ATTEND Physician Assistant Medical
DX: Z01.812 Encounter for preprocedural laboratory examination (principal)

== ENCOUNTER → 2021-08-28 | Outpatient (CLI) | payer MEDICARE, BC | LOC: M ADAMS 10:53 | PROVIDERS: ATTEND Family Medicine | DX: R05.3 Chronic cough (principal) ==

== ENCOUNTER 2021-08-29 09:50 | Emergency (ER) | payer MEDICARE, BC ==
[~2021-08-29] VITALS: Ht 175.3 cm; Wt 86.4 kg
[2021-08-29 11:16] LABS: BASO % 0.8 % (0.0-1.0); EOS # 0.1 10^3/uL (0.0-0.5); EOS % 2.6 % (0.0-3.0); HEMATOCRIT 44.8 % (42.0-52.0); HEMOGLOBIN 14.6 g/dl (13.5-17.5); LYMPH # 0.8 10^3/uL (1.5-5.0); LYMPH % 16.4 % (24.0-44.0); MEAN CORPUSCULAR HEMOGLOBIN 28.6 pg (27.0-33.0); MEAN CORPUSCULAR HGB CONC 32.6 g/dl (32.0-36.5); MEAN CORPUSCULAR VOLUME 87.7 fl (80.0-96.0); MONO # 0.5 10^3/uL (0.0-0.8); MONO % 10.5 % (2.0-8.0); NEUTROPHILS # 3.4 10^3/uL (1.5-8.5); NEUTROPHILS % 69.1 % (36.0-66.0); PLATELET COUNT, AUTOMATED 177 10^3/uL (150-450); RED BLOOD COUNT 5.11 10^6/uL (4.30-6.10); WHITE BLOOD COUNT 4.9 10^3/uL (4.0-10.0)
[2021-08-29 11:34] LABS: ERYTHROCYTE SEDIMENTATION RATE 5 mm/hr (0-20)
[2021-08-29 11:38] LABS: BLOOD UREA NITROGEN 13 MG/DL (7-18); CALCIUM LEVEL 9.5 MG/DL (8.8-10.2); CARBON DIOXIDE LEVEL 30 MEQ/L (21-32); CHLORIDE LEVEL 108 MEQ/L (98-107); CREATININE FOR GFR 0.98 MG/DL (0.70-1.30); GLOMERULAR FILTRATION RATE > 60.0 (>35); GLUCOSE, FASTING 93 MG/DL (70-100); POTASSIUM SERUM 4.5 MEQ/L (3.5-5.1); SODIUM LEVEL 140 MEQ/L (136-145)
[2021-08-29 14:00] VITALS: BP 162/73
== END 2021-08-29 14:02 | disposition home or self-care (01) ==
LOC: EDBD 09:50 → M ED 09:50
DX: I65.23 Occlusion and stenosis of bilateral carotid arteries (principal); E78.5 Hyperlipidemia, unspecified; K21.9 Gastro-esophageal reflux disease without esophagitis; Z86.73 Personal history of transient ischemic attack (TIA), and cerebral infarction without residual deficits; Z87.891 Personal history of nicotine dependence; Z79.02 Long term (current) use of antithrombotics/antiplatelets; Z79.82 Long term (current) use of aspirin; Z79.899 Other long term (current) drug therapy; Z88.8 Allergy status to other drugs, medicaments and biological substances

== ENCOUNTER 2021-09-19 19:47 | Emergency (ER) | payer MEDICARE, BC ==
[2021-09-19 20:46] LABS: BASO % 0.5 % (0.0-1.0); EOS # 0.2 10^3/uL (0.0-0.5); EOS % 2.3 % (0.0-3.0); HEMATOCRIT 47.8 % (42.0-52.0); HEMOGLOBIN 15.6 g/dl (13.5-17.5); LYMPH # 0.8 10^3/uL (1.5-5.0); LYMPH % 10.5 % (24.0-44.0); MEAN CORPUSCULAR HGB CONC 32.6 g/dl (32.0-36.5); MEAN CORPUSCULAR VOLUME 88.8 fl (80.0-96.0); MONO # 0.5 10^3/uL (0.0-0.8); MONO % 6.6 % (2.0-8.0); NEUTROPHILS # 6.3 10^3/uL (1.5-8.5); NEUTROPHILS % 79.5 % (36.0-66.0); PLATELET COUNT, AUTOMATED 218 10^3/uL (150-450); RED BLOOD COUNT 5.38 10^6/uL (4.30-6.10); WHITE BLOOD COUNT 7.9 10^3/uL (4.0-10.0)
[2021-09-19 21:12] LABS: ALBUMIN 3.8 GM/DL (3.2-5.2); BILIRUBIN,DIRECT 0.2 MG/DL (0.0-0.2); BILIRUBIN,TOTAL 0.7 MG/DL (0.2-1.0); BLOOD UREA NITROGEN 14 MG/DL (7-18); CARBON DIOXIDE LEVEL 26 MEQ/L (21-32); CHLORIDE LEVEL 106 MEQ/L (98-107); CREATININE FOR GFR 1.16 MG/DL (0.70-1.30); GLOMERULAR FILTRATION RATE > 60.0 (>35); GLUCOSE, FASTING 107 MG/DL (70-100); LIPASE 211 U/L (73-393); POTASSIUM SERUM 4.4 MEQ/L (3.5-5.1); SODIUM LEVEL 140 MEQ/L (136-145)
[2021-09-19 21:32] LABS: ALT/SGPT 27 U/L (12-78)
[2021-09-19 22:43] VITALS: BP 148/78
== END 2021-09-19 22:59 | disposition home or self-care (01) ==
LOC: M ED 19:47
DX: T18.128A Food in esophagus causing other injury, initial encounter (principal); K21.9 Gastro-esophageal reflux disease without esophagitis; E78.5 Hyperlipidemia, unspecified; Z86.73 Personal history of transient ischemic attack (TIA), and cerebral infarction without residual deficits; F32.9 Major depressive disorder, single episode, unspecified; Z86.19 Personal history of other infectious and parasitic diseases; Z79.82 Long term (current) use of aspirin; Z79.899 Other long term (current) drug therapy; Z88.8 Allergy status to other drugs, medicaments and biological substances

== ENCOUNTER 2021-10-09 05:22 | Inpatient (IN) | payer MEDICARE, BC ==
[~2021-10-09] VITALS: Ht 180.3 cm; Wt 83.4 kg
[2021-10-09] VITALS (9 sets, daily range): BP systolic 131–178; BP diastolic 60–97; O2SAT 95–97
[2021-10-09] MEDS ORDERED: ACETAMINOPHEN TAB 650MG DOSE (2X325MG) PO ONE (08:10)
[2021-10-09 08:44] LABS: BASO % 0.6 % (0.0-1.0); EOS % 0.2 % (0.0-3.0); HEMATOCRIT 47.9 % (42.0-52.0); HEMOGLOBIN 15.6 g/dl (13.5-17.5); LYMPH # 0.4 10^3/uL (1.5-5.0); LYMPH % 7.1 % (24.0-44.0); MEAN CORPUSCULAR HEMOGLOBIN 28.8 pg (27.0-33.0); MEAN CORPUSCULAR HGB CONC 32.6 g/dl (32.0-36.5); MEAN CORPUSCULAR VOLUME 88.5 fl (80.0-96.0); MONO # 0.6 10^3/uL (0.0-0.8); MONO % 10.6 % (2.0-8.0); NEUTROPHILS # 4.4 10^3/uL (1.5-8.5); NEUTROPHILS % 80.8 % (36.0-66.0); PLATELET COUNT, AUTOMATED 172 10^3/uL (150-450); RED BLOOD COUNT 5.41 10^6/uL (4.30-6.10); WHITE BLOOD COUNT 5.4 10^3/uL (4.0-10.0)
[2021-10-09] MEDS ORDERED: ENOXAPARIN 40MG/0.4ML SYRINGE (J1650 PER 10MG) SC SCH (09:00)
[2021-10-09] MEDS ORDERED: MYCOPHENOLATE MOFETIL 250 MG CAP (J7517) PO SCH (09:00)
[2021-10-09 09:16] LABS: ALBUMIN 3.5 GM/DL (3.2-5.2); BILIRUBIN,DIRECT 0.2 MG/DL (0.0-0.2); BILIRUBIN,TOTAL 0.5 MG/DL (0.2-1.0); CALCIUM LEVEL 9.3 MG/DL (8.8-10.2); CREATININE FOR GFR 1.35 MG/DL (0.70-1.30); GLOMERULAR FILTRATION RATE 54.1 (>35); POTASSIUM SERUM 4.2 MEQ/L (3.5-5.1); TOTAL PROTEIN 6.4 GM/DL (6.4-8.2)
[2021-10-09] MEDS ORDERED: NS 1,000 ML IV SCH (09:50)
[2021-10-09] MEDS ORDERED: ATOR40TA75 PO (10:37)
[2021-10-09] MEDS ORDERED: FAMO40TA3 PO (10:37)
[2021-10-09] MEDS ORDERED: VITMTA PO (10:37)
[2021-10-09] MEDS ORDERED: PREDOPD OS (10:37)
[2021-10-09] MEDS ORDERED: ALBU8.5H INH (10:37)
[2021-10-09] MEDS ORDERED: PYRI60TA2 PO (10:37)
[2021-10-09] MEDS ORDERED: HOME MED LIST COMPLETE! XX SCH (10:40)
[2021-10-09] MEDS: NS 1,000 ML IV SCH (11:00)
[2021-10-09 11:54] LABS: ALBUMIN 3.4 GM/DL (3.2-5.2); ALT/SGPT 25 U/L (12-78); BILIRUBIN,DIRECT 0.1 MG/DL (0.0-0.2); BILIRUBIN,TOTAL 0.5 MG/DL (0.2-1.0); C REACTIVE PROTEIN QUANTITATIV < 0.30 MG/DL (0.00-0.30); LDH LACTATE DEHYDROGENASE 141 U/L (87-241); NT-PRO BNP 321 PG/ML (<450); TOTAL PROTEIN 6.2 GM/DL (6.4-8.2)
[2021-10-09] MEDS ORDERED: ALBUTEROL 90 MCG/ACT 8GM HFA INHALER INH PRN (11:55)
[2021-10-09] MEDS ORDERED: REMDESIVIR 200 MG in NS 250 ML IV ONE ×2 (14:00→18:00)
[2021-10-09] MEDS: IMMUNE GLOBULIN 10% 40 GM in IV 1 EA IV SCH (14:11)
[2021-10-09] MEDS: CLOPIDOGREL 75 MG TAB PO SCH (14:21)
[2021-10-09] MEDS: PYRIDOSTIGMINE 60MG TABLET PO SCH ×3 (14:22→20:51)
[2021-10-09] MEDS: ACETAMINOPHEN TAB 650MG DOSE (2X325MG) PO PRN (15:40)
[2021-10-09] MEDS ORDERED: SODIUM CHLORIDE 0.9% INJ 10 ML SYR IV ONE ×2 (16:00→20:00)
[2021-10-09] MEDS: PREGABALIN 50 MG CAP (LYRICA) PO SCH ×2 (16:00→20:51)
[2021-10-09] MEDS: IMMUNE GLOBULIN 10% 20 GM in IV 1 EA IV SCH (17:32)
[2021-10-09] MEDS: ATORVASTATIN 20 MG TAB PO SCH (20:50)
[2021-10-09] MEDS: FAMOTIDINE 20 MG TAB PO SCH (20:51)
[2021-10-09] MEDS ORDERED: PYRIDOSTIGMINE 60MG TABLET PO SCH (21:00)
[2021-10-10] VITALS (16 sets, daily range): BP systolic 133–191; BP diastolic 60–84; O2SAT 94–96
[2021-10-10] MEDS: ACETAMINOPHEN TAB 650MG DOSE (2X325MG) PO PRN (00:35)
[2021-10-10] MEDS: NS 1,000 ML IV SCH ×4 (01:17→22:24)
[2021-10-10 06:08] LABS: HEMATOCRIT 41.9 % (42.0-52.0); MEAN CORPUSCULAR HEMOGLOBIN 28.2 pg (27.0-33.0); MEAN CORPUSCULAR HGB CONC 31.7 g/dl (32.0-36.5); PLATELET COUNT, AUTOMATED 126 10^3/uL (150-450); RED BLOOD COUNT 4.71 10^6/uL (4.30-6.10); WHITE BLOOD COUNT 3.1 10^3/uL (4.0-10.0)
[2021-10-10 06:13] LABS: HEMOGLOBIN 13.3 g/dl (13.5-17.5)
[2021-10-10 06:34] LABS: ALBUMIN 2.7 GM/DL (3.2-5.2); ALT/SGPT 26 U/L (12-78); BILIRUBIN,TOTAL 0.4 MG/DL (0.2-1.0); BLOOD UREA NITROGEN 14 MG/DL (7-18); CALCIUM LEVEL 8.2 MG/DL (8.8-10.2); CARBON DIOXIDE LEVEL 28 MEQ/L (21-32); CHLORIDE LEVEL 108 MEQ/L (98-107); GLOMERULAR FILTRATION RATE > 60.0 (>35); GLUCOSE, FASTING 82 MG/DL (70-100); MAGNESIUM LEVEL 1.8 MG/DL (1.8-2.4); POTASSIUM SERUM 3.8 MEQ/L (3.5-5.1); SODIUM LEVEL 140 MEQ/L (136-145); TOTAL PROTEIN 6.9 GM/DL (6.4-8.2)
[2021-10-10] MEDS: PREGABALIN 50 MG CAP (LYRICA) PO SCH ×3 (09:10→21:13)
[2021-10-10] MEDS: PYRIDOSTIGMINE 60MG TABLET PO SCH ×4 (09:11→21:13)
[2021-10-10] MEDS: ENOXAPARIN 40MG/0.4ML SYRINGE (J1650 PER 10MG) SC SCH (09:11)
[2021-10-10] MEDS: CLOPIDOGREL 75 MG TAB PO SCH (09:11)
[2021-10-10] MEDS: MULTIVITAMINS/MINERALS THERAP 1 TAB PO SCH (09:11)
[2021-10-10] MEDS: prednisoLONE ACET 1% OPHTH SUSP 5ML OS SCH (12:11)
[2021-10-10] MEDS: IMMUNE GLOBULIN 10% 20 GM in IV 1 EA IV SCH (13:17)
[2021-10-10] MEDS: IMMUNE GLOBULIN 10% 40 GM in IV 1 EA IV SCH (13:18)
[2021-10-10] MEDS: SODIUM CHLORIDE 0.9% INJ 10 ML SYR IV SCH (17:46)
[2021-10-10] MEDS: REMDESIVIR 100 MG in NS 250 ML IV SCH (17:46)
[2021-10-10] MEDS: ATORVASTATIN 20 MG TAB PO SCH (21:13)
[2021-10-10] MEDS: FAMOTIDINE 20 MG TAB PO SCH (21:13)
[2021-10-10] MEDS: LOMOTIL 2.5MG/0.025MG TABLET PO SCH (21:13)
[2021-10-11] VITALS (9 sets, daily range): BP systolic 144–159; BP diastolic 67–88; O2SAT 94–98
[2021-10-11 06:15] LABS: HEMATOCRIT 40.3 % (42.0-52.0); HEMOGLOBIN 13.2 g/dl (13.5-17.5); MEAN CORPUSCULAR HEMOGLOBIN 29.3 pg (27.0-33.0); MEAN CORPUSCULAR HGB CONC 32.8 g/dl (32.0-36.5); MEAN CORPUSCULAR VOLUME 89.4 fl (80.0-96.0); PLATELET COUNT, AUTOMATED 119 10^3/uL (150-450); RED BLOOD COUNT 4.51 10^6/uL (4.30-6.10); WHITE BLOOD COUNT 2.5 10^3/uL (4.0-10.0)
[2021-10-11 06:28] LABS: INR 1.05; PROTHROMBIN TIME 14.1 SECONDS (12.7-14.5)
[2021-10-11 06:29] LABS: PARTIAL THROMBOPLASTIN TIME 32.6 SECONDS (25.9-37.0)
[2021-10-11 06:59] LABS: ALBUMIN 2.6 GM/DL (3.2-5.2); ALT/SGPT 25 U/L (12-78); BILIRUBIN,TOTAL 0.5 MG/DL (0.2-1.0); BLOOD UREA NITROGEN 11 MG/DL (7-18); CALCIUM LEVEL 7.6 MG/DL (8.8-10.2); CARBON DIOXIDE LEVEL 27 MEQ/L (21-32); CHLORIDE LEVEL 106 MEQ/L (98-107); CREATININE FOR GFR 1.15 MG/DL (0.70-1.30); FERRITIN 426 NG/ML (26-388); GLOMERULAR FILTRATION RATE > 60.0 (>35); GLUCOSE, FASTING 73 MG/DL (70-100); LDH LACTATE DEHYDROGENASE 156 U/L (87-241); MAGNESIUM LEVEL 1.8 MG/DL (1.8-2.4); NT-PRO BNP 271 PG/ML (<450); POTASSIUM SERUM 3.3 MEQ/L (3.5-5.1); SODIUM LEVEL 136 MEQ/L (136-145); TOTAL PROTEIN 7.8 GM/DL (6.4-8.2)
[2021-10-11] MEDS: PYRIDOSTIGMINE 60MG TABLET PO SCH ×4 (09:45→20:42)
[2021-10-11] MEDS: PREGABALIN 50 MG CAP (LYRICA) PO SCH ×3 (09:45→20:42)
[2021-10-11] MEDS: ENOXAPARIN 40MG/0.4ML SYRINGE (J1650 PER 10MG) SC SCH (09:46)
[2021-10-11] MEDS: prednisoLONE ACET 1% OPHTH SUSP 5ML OS SCH (09:46)
[2021-10-11] MEDS: MULTIVITAMINS/MINERALS THERAP 1 TAB PO SCH (09:46)
[2021-10-11] MEDS: NS 1,000 ML IV SCH ×2 (09:46→21:20)
[2021-10-11] MEDS: CLOPIDOGREL 75 MG TAB PO SCH (09:46)
[2021-10-11] MEDS: LOMOTIL 2.5MG/0.025MG TABLET PO SCH ×2 (09:47→20:42)
[2021-10-11] MEDS ORDERED: POTASSIUM CHLORIDE 10MEQ SR TABLET PO ONE (11:40)
[2021-10-11] MEDS ORDERED: PYRI60TA2 PO (11:48)
[2021-10-11] MEDS: IMMUNE GLOBULIN 10% 20 GM in IV 1 EA IV SCH (15:16)
[2021-10-11] MEDS ORDERED: HALOPERIDOL 5MG/ML VIAL (J1630 PER 1) IV ONE (15:40)
[2021-10-11] MEDS ORDERED: HALOPERIDOL 5MG/ML VIAL (J1630 PER 1) As Ordered ONE (15:41)
[2021-10-11] MEDS ORDERED: ISOVUE-370 76% 100ML VIAL As Ordered ONE ×2 (15:46→15:57)
[2021-10-11 16:49] LABS: HEMATOCRIT 42.3 % (42.0-52.0); HEMOGLOBIN 13.8 g/dl (13.5-17.5); MEAN CORPUSCULAR HEMOGLOBIN 28.7 pg (27.0-33.0); MEAN CORPUSCULAR HGB CONC 32.6 g/dl (32.0-36.5); MEAN CORPUSCULAR VOLUME 87.9 fl (80.0-96.0); PLATELET COUNT, AUTOMATED 118 10^3/uL (150-450); RED BLOOD COUNT 4.81 10^6/uL (4.30-6.10); WHITE BLOOD COUNT 1.8 10^3/uL (4.0-10.0)
[2021-10-11 17:17] LABS: ALBUMIN 2.8 GM/DL (3.2-5.2); ALT/SGPT 29 U/L (12-78); BILIRUBIN,TOTAL 0.4 MG/DL (0.2-1.0); BLOOD UREA NITROGEN 12 MG/DL (7-18); CALCIUM LEVEL 8.2 MG/DL (8.8-10.2); CARBON DIOXIDE LEVEL 27 MEQ/L (21-32); CHLORIDE LEVEL 105 MEQ/L (98-107); CK-MB VALUE MASS 2.2 NG/ML (<3.6); CPK CREATINE PHOSPHOKINASE 161 U/L (39-308); CREATININE FOR GFR 0.99 MG/DL (0.70-1.30); GLOMERULAR FILTRATION RATE > 60.0 (>35); GLUCOSE, FASTING 77 MG/DL (70-100); MB/CK RELATIVE INDEX 1.37 (< OR =4); POTASSIUM SERUM 3.7 MEQ/L (3.5-5.1); SODIUM LEVEL 138 MEQ/L (136-145); TOTAL PROTEIN 7.7 GM/DL (6.4-8.2)
[2021-10-11 18:23] LABS: BASOPHILS 1 % (0-1); EOSINOPHILS 1 % (0-3); LYMPHOCYTES 44 % (16-44); MONOCYTES 7 % (0-5); NEUTROPHILS 47 % (28-66); PLATELET ESTIMATE NORMAL (NORMAL)
[2021-10-11] MEDS: IMMUNE GLOBULIN 10% 40 GM in IV 1 EA IV SCH (19:42)
[2021-10-11] MEDS: ATORVASTATIN 20 MG TAB PO SCH (20:42)
[2021-10-11] MEDS: FAMOTIDINE 20 MG TAB PO SCH (20:42)
[2021-10-11] MEDS: REMDESIVIR 100 MG in NS 250 ML IV SCH (21:21)
[2021-10-11] MEDS: SODIUM CHLORIDE 0.9% INJ 10 ML SYR IV SCH (21:22)
[2021-10-12] VITALS: BP 141/63; O2SAT 94
[2021-10-12 04:00] VITALS: BP 127/59; O2SAT 94
[2021-10-12 07:56] LABS: CHOLESTEROL LEVEL < 50 MG/DL (<200); CHOLESTEROL RISK RATIO 1.666 (<5); HDL CHOLESTEROL 30 MG/DL (>40); LDL CHOLESTEROL 11 MG/DL (<100); NON-HDL-C 20 MG/DL; TRIGLYCERIDES LEVEL 45 MG/DL (<150)
[2021-10-12 08:00] VITALS: BP 123/60
[2021-10-12] MEDS: NS 1,000 ML IV SCH (08:20)
[2021-10-12] MEDS: MULTIVITAMINS/MINERALS THERAP 1 TAB PO SCH (09:00)
[2021-10-12] MEDS: LOMOTIL 2.5MG/0.025MG TABLET PO SCH (09:00)
[2021-10-12] MEDS: CLOPIDOGREL 75 MG TAB PO SCH (10:16)
[2021-10-12] MEDS: PYRIDOSTIGMINE 60MG TABLET PO SCH (10:16)
[2021-10-12] MEDS: PREGABALIN 50 MG CAP (LYRICA) PO SCH (10:16)
[2021-10-12] MEDS: prednisoLONE ACET 1% OPHTH SUSP 5ML OS SCH (10:17)
[2021-10-12] MEDS: ENOXAPARIN 40MG/0.4ML SYRINGE (J1650 PER 10MG) SC SCH (10:17)
== END 2021-10-12 12:35 | disposition home health service (06) | DRG 56 ==
LOC: M ED 05:22 → M ED INP 10:11 → ENRESERV 13:44 → M 4MAIN 15:10
PROVIDERS: ADMIT Internal Medicine; ATTEND General Practice
PROC: XW033E5 Introduction of Remdesivir Anti-infective into Peripheral Vein, Percutaneous Approach, New Technology Group 5 (ICD-10-PCS; principal; 2021-10-10)
PROC: B246ZZZ Ultrasonography of Right and Left Heart (ICD-10-PCS; 2021-10-11)
DX: G70.01 Myasthenia gravis with (acute) exacerbation (principal); U07.1 COVID-19; N17.9 Acute kidney failure, unspecified; I69.351 Hemiplegia and hemiparesis following cerebral infarction affecting right dominant side; I25.10 Atherosclerotic heart disease of native coronary artery without angina pectoris; Z95.5 Presence of coronary angioplasty implant and graft; J44.9 Chronic obstructive pulmonary disease, unspecified; Z87.891 Personal history of nicotine dependence; E78.5 Hyperlipidemia, unspecified; K21.9 Gastro-esophageal reflux disease without esophagitis; Z96.651 Presence of right artificial knee joint; G89.29 Other chronic pain; Z79.82 Long term (current) use of aspirin; Z79.899 Other long term (current) drug therapy; Z88.8 Allergy status to other drugs, medicaments and biological substances; D72.829 Elevated white blood cell count, unspecified; D69.6 Thrombocytopenia, unspecified

== ENCOUNTER → 2021-11-02 | Outpatient (CLI) | payer MEDICARE, BC ==
[~2021-11-02] MED LIST changes: +ALBU8.5H INH; +FAMO40TA3 PO; +PREDOPD OS; +VITMTA PO
[2021-11-02 13:34] LABS: BLOOD UREA NITROGEN 21 MG/DL (7-18); CALCIUM LEVEL 9.2 MG/DL (8.8-10.2); CARBON DIOXIDE LEVEL 29 MEQ/L (21-32); CHLORIDE LEVEL 108 MEQ/L (98-107); CREATININE FOR GFR 0.91 MG/DL (0.70-1.30); GLOMERULAR FILTRATION RATE > 60.0 (>35); GLUCOSE, FASTING 88 MG/DL (70-100); POTASSIUM SERUM 3.9 MEQ/L (3.5-5.1); SODIUM LEVEL 142 MEQ/L (136-145)
[2021-11-02 13:36] LABS: HEMATOCRIT 42.3 % (42.0-52.0); HEMOGLOBIN 13.8 g/dl (13.5-17.5); MEAN CORPUSCULAR HEMOGLOBIN 29.2 pg (27.0-33.0); MEAN CORPUSCULAR HGB CONC 32.6 g/dl (32.0-36.5); MEAN CORPUSCULAR VOLUME 89.4 fl (80.0-96.0); PLATELET COUNT, AUTOMATED 190 10^3/uL (150-450); RED BLOOD COUNT 4.73 10^6/uL (4.30-6.10); WHITE BLOOD COUNT 6.1 10^3/uL (4.0-10.0)
[2021-11-02 13:43] LABS: INR 0.85
== END ==
LOC: M ADAMS 10:19
PROVIDERS: ATTEND Physician Assistant Medical
DX: Z01.812 Encounter for preprocedural laboratory examination (principal); I65.21 Occlusion and stenosis of right carotid artery

== ENCOUNTER → 2021-11-16 | Outpatient (CLI) | payer MEDICARE, BC | LOC: M RAD 09:05 | PROVIDERS: ATTEND Physician Assistant | DX: R91.8 Other nonspecific abnormal finding of lung field (principal); R05.9 Cough, unspecified; R06.00 Dyspnea, unspecified ==

== ENCOUNTER → 2021-12-22 | Outpatient (CLI) | payer MEDICARE, BC ==
[~2021-12-22] MED LIST changes: +LEVO1TAB39 PO; -LEVO500T4 PO
[2021-12-22 13:11] LABS: BASO # 0.1 10^3/uL (0.0-0.2); BASO % 0.7 % (0.0-1.0); EOS # 0.1 10^3/uL (0.0-0.5); EOS % 1.2 % (0.0-3.0); HEMATOCRIT 48.9 % (42.0-52.0); HEMOGLOBIN 15.6 g/dl (13.5-17.5); LYMPH # 0.9 10^3/uL (1.5-5.0); LYMPH % 7.7 % (24.0-44.0); MEAN CORPUSCULAR HEMOGLOBIN 29.3 pg (27.0-33.0); MEAN CORPUSCULAR HGB CONC 31.9 g/dl (32.0-36.5); MEAN CORPUSCULAR VOLUME 91.7 fl (80.0-96.0); MONO # 0.5 10^3/uL (0.0-0.8); MONO % 4.3 % (2.0-8.0); NEUTROPHILS # 9.3 10^3/uL (1.5-8.5); NEUTROPHILS % 84.3 % (36.0-66.0); PLATELET COUNT, AUTOMATED 196 10^3/uL (150-450); RED BLOOD COUNT 5.33 10^6/uL (4.30-6.10)
== END ==
LOC: M ADAMS 10:48
PROVIDERS: ATTEND Psychiatry & Neurology Neurology
DX: G70.00 Myasthenia gravis without (acute) exacerbation (principal)

== ENCOUNTER → 2022-01-19 | Outpatient (CLI) | payer MEDICARE, BC | LOC: M RAD 11:30 | PROVIDERS: ATTEND Internal Medicine | DX: N28.1 Cyst of kidney, acquired (principal) ==

== ENCOUNTER 2022-03-09 13:51 | Emergency (ER) | payer MEDICARE, BC ==
[~2022-03-09 13:51] MED LIST changes: +CLOP75TA99 PO; -PLAV1TAB2 PO
[2022-03-09 14:16] VITALS: BP 108/72
== END 2022-03-09 19:34 | disposition left against medical advice (07) ==
LOC: M ED 13:51 → EDBD 13:51 → M ED 19:34
DX: Z53.21 Procedure and treatment not carried out due to patient leaving prior to being seen by health care provider (principal)

== ENCOUNTER 2022-03-20 12:59 | Emergency (ER) | payer MEDICARE, BC ==
[~2022-03-20] VITALS: Ht 175.3 cm; Wt 83.2 kg
[2022-03-20] MEDS ORDERED: ALBU2.5V10 (13:21)
[2022-03-20] MEDS ORDERED: PYRI60TA2 PO (13:21)
[2022-03-20] MEDS ORDERED: FLUTISP (13:21)
[2022-03-20] MEDS ORDERED: VALA500T5 PO (13:21)
[2022-03-20] MEDS ORDERED: IPRATROPIUM 0.5MG/ALBUTEROL 2.5MG INH SOL UD 3ML (DUONEB) NEB ONE (17:45)
[2022-03-20 18:06] LABS: VENOUS HCO3 28.5 MEQ/L (23.0-27.0); VENOUS O2 SATURATION 36.8 % (60.0-80.0); VENOUS PARTIAL PRESSURE O2 21.3 mmHg (30.0-50.0); VENOUS PH 7.317 UNITS (7.330-7.430); VENOUS STANDARD HCO3 23.7 MEQ/L; VENOUS TOTAL CO2 30.3 MEQ/L (24.0-28.0)
[2022-03-20] MEDS ORDERED: ISOVUE-370 76% 100ML VIAL As Ordered ONE (18:14)
[2022-03-20 18:15] LABS: BASO % 0.7 % (0.0-1.0); EOS # 0.2 10^3/uL (0.0-0.5); HEMATOCRIT 46.5 % (42.0-52.0); HEMOGLOBIN 14.8 g/dl (13.5-17.5); LYMPH # 0.9 10^3/uL (1.5-5.0); LYMPH % 16.8 % (24.0-44.0); MEAN CORPUSCULAR HEMOGLOBIN 30.5 pg (27.0-33.0); MEAN CORPUSCULAR HGB CONC 31.8 g/dl (32.0-36.5); MEAN CORPUSCULAR VOLUME 95.7 fl (80.0-96.0); MONO # 0.6 10^3/uL (0.0-0.8); MONO % 9.9 % (2.0-8.0); NEUTROPHILS # 3.7 10^3/uL (1.5-8.5); NEUTROPHILS % 67.5 % (36.0-66.0); PLATELET COUNT, AUTOMATED 235 10^3/uL (150-450); RED BLOOD COUNT 4.86 10^6/uL (4.30-6.10); WHITE BLOOD COUNT 5.5 10^3/uL (4.0-10.0)
[2022-03-20 18:41] LABS: CK-MB VALUE MASS < 1.0 NG/ML (<3.6); CPK CREATINE PHOSPHOKINASE 43 U/L (46-171); MB/CK RELATIVE INDEX 2.32 (< OR =4)
[2022-03-20] MEDS ORDERED: predniSONE 20 MG TAB PO ONE (20:05)
[2022-03-20] MEDS ORDERED: PRED20TA PO (20:07)
[2022-03-20 20:33] VITALS: BP 138/78
== END 2022-03-20 20:35 | disposition home or self-care (01) ==
LOC: M ED 12:59
DX: R06.02 Shortness of breath (principal); R06.2 Wheezing; K21.9 Gastro-esophageal reflux disease without esophagitis; E55.9 Vitamin D deficiency, unspecified; G70.00 Myasthenia gravis without (acute) exacerbation; I65.29 Occlusion and stenosis of unspecified carotid artery; Z86.19 Personal history of other infectious and parasitic diseases; Z86.16 Personal history of COVID-19; F17.220 Nicotine dependence, chewing tobacco, uncomplicated; Z79.82 Long term (current) use of aspirin; Z79.02 Long term (current) use of antithrombotics/antiplatelets; Z79.899 Other long term (current) drug therapy; Z88.8 Allergy status to other drugs, medicaments and biological substances
CPT/HCPCS: 71046; 71275; 80047; 82550; 82553; 82803; 83880; 84484; 85025; 87486; 87581; 87633; 87798; 93005; 94640; 99284; J7512; Q9967

== ENCOUNTER → 2022-06-05 | Outpatient (CLI) | payer MEDICARE, BC ==
[~2022-06-05] MED LIST changes: +ALBU2.5V10; +FLUTISP
== END ==
LOC: M PLAIMG 12:42
PROVIDERS: ATTEND Physician Assistant
DX: J43.9 Emphysema, unspecified (principal); I70.0 Atherosclerosis of aorta; I25.10 Atherosclerotic heart disease of native coronary artery without angina pectoris; M48.14 Ankylosing hyperostosis [Forestier], thoracic region

== ENCOUNTER 2022-07-10 17:05 | Emergency (ER) | payer MEDICARE, BC ==
[~2022-07-10] VITALS: Ht 172.7 cm; Wt 81.2 kg
[2022-07-10 17:23] VITALS: BP 118/73
[2022-07-10 17:55] LABS: BASO % 0.7 % (0.0-1.0); EOS # 0.2 10^3/uL (0.0-0.5); EOS % 4.3 % (0.0-3.0); HEMOGLOBIN 13.5 g/dl (13.5-17.5); LYMPH # 0.6 10^3/uL (1.5-5.0); LYMPH % 13.5 % (24.0-44.0); MEAN CORPUSCULAR HEMOGLOBIN 31.3 pg (27.0-33.0); MEAN CORPUSCULAR HGB CONC 32.9 g/dl (32.0-36.5); MEAN CORPUSCULAR VOLUME 95.1 fl (80.0-96.0); MONO # 0.5 10^3/uL (0.0-0.8); NEUTROPHILS # 3.3 10^3/uL (1.5-8.5); NEUTROPHILS % 70.8 % (36.0-66.0); PLATELET COUNT, AUTOMATED 198 10^3/uL (150-450); RED BLOOD COUNT 4.31 10^6/uL (4.30-6.10); WHITE BLOOD COUNT 4.6 10^3/uL (4.0-10.0)
[2022-07-10] MEDS ORDERED: GI COCKTAIL 50ML BTL(HYOSCYAMINE/MAALOX/LIDOCAINE VISCOUS)(1:3:1) PO ONE (18:05)
[2022-07-10 18:13] LABS: BLOOD UREA NITROGEN 16 MG/DL (9-23); CALCIUM LEVEL 8.8 MG/DL (8.3-10.6); CARBON DIOXIDE LEVEL 29 MMOL/L (20-31); CHLORIDE LEVEL 104 MMOL/L (98-107); CK-MB VALUE MASS < 1.0 NG/ML (<3.6); CPK CREATINE PHOSPHOKINASE 35 U/L (46-171); CREATININE FOR GFR 0.94 MG/DL (0.70-1.30); GLOMERULAR FILTRATION RATE > 60.0 (>35); GLUCOSE, FASTING 87 MG/DL (74-106); MB/CK RELATIVE INDEX 2.85 (< OR =4); POTASSIUM SERUM 3.8 MMOL/L (3.5-5.1); SODIUM LEVEL 139 MMOL/L (136-145)
[2022-07-10 19:02] LABS: CK-MB VALUE MASS < 1.0 NG/ML (<3.6)
[2022-07-10 19:04] LABS: CPK CREATINE PHOSPHOKINASE 30 U/L (46-171); MB/CK RELATIVE INDEX 3.33 (< OR =4)
== END 2022-07-10 19:51 | disposition home or self-care (01) ==
LOC: EDBD 17:05 → M ED 17:05
DX: K21.9 Gastro-esophageal reflux disease without esophagitis (principal); M50.30 Other cervical disc degeneration, unspecified cervical region; M54.12 Radiculopathy, cervical region; E78.5 Hyperlipidemia, unspecified; Z86.73 Personal history of transient ischemic attack (TIA), and cerebral infarction without residual deficits; Z86.19 Personal history of other infectious and parasitic diseases; H54.42A3 Blindness left eye category 3, normal vision right eye; Z79.82 Long term (current) use of aspirin; Z79.899 Other long term (current) drug therapy; Z88.8 Allergy status to other drugs, medicaments and biological substances

== ENCOUNTER 2022-09-16 10:39 | Inpatient (IN) | payer MEDICARE, BC ==
[~2022-09-16] VITALS: Ht 175.3 cm; Wt 78.5 kg
[~2022-09-16 10:39] MED LIST changes: -ALBU2.5V10; +ALBU2.5V10 PO; +FLUT50SP17 NARES; -FLUTISP
[2022-09-16] MEDS ORDERED: ALBUTEROL SULFATE 2.5MG/0.5ML INH NEB SOLN INH ONE (10:55)
[2022-09-16] MEDS ORDERED: IPRATROPIUM 0.5MG/ALBUTEROL 2.5MG INH SOL UD 3ML (DUONEB) NEB ONE (10:55)
[2022-09-16] MEDS ORDERED: ONDANSETRON 4MG 2ML VIAL IV ONE (11:00)
[2022-09-16 11:23] LABS: BASO % 0.2 % (0.0-1.0); EOS % 0.8 % (0.0-3.0); HEMATOCRIT 36.9 % (42.0-52.0); HEMOGLOBIN 12.1 g/dl (13.5-17.5); LYMPH # 0.2 10^3/uL (1.5-5.0); LYMPH % 3.8 % (24.0-44.0); MEAN CORPUSCULAR HGB CONC 32.8 g/dl (32.0-36.5); MEAN CORPUSCULAR VOLUME 91.6 fl (80.0-96.0); MONO # 0.3 10^3/uL (0.0-0.8); MONO % 5.4 % (2.0-8.0); NEUTROPHILS # 4.4 10^3/uL (1.5-8.5); NEUTROPHILS % 89.4 % (36.0-66.0); PLATELET COUNT, AUTOMATED 171 10^3/uL (150-450); RED BLOOD COUNT 4.03 10^6/uL (4.30-6.10)
[2022-09-16 11:24] LABS: ABG BASE EXCESS -2.8 (-2.0-2.0); ABG HCO3 20.5 MMOL/L (22.0-26.0); ABG O2 SATURATION 95.2 % (95.0-99.0); ABG PARTIAL PRESSURE CO2 31.4 mmHg (35.0-45.0); ABG PARTIAL PRESSURE O2 74.9 mmHg (75.0-100.0); ABG STANDARD HCO3 22.1 MMOL/L. (22.0-26.0); ABG TOTAL CO2 21.5 MMOL/L (23.0-31.0); ABG pH (ARTERIAL) 7.433 UNITS (7.350-7.450)
[2022-09-16] MEDS ORDERED: ISOVUE-370 76% 100ML VIAL As Ordered ONE (11:29)
[2022-09-16 11:34] LABS: INR 0.92; PROTHROMBIN TIME 12.6 SECONDS (12.5-14.5)
[2022-09-16] MEDS ORDERED: PYRIDOSTIGMINE 60MG TABLET PO STA (11:35)
[2022-09-16] MEDS ORDERED: NS 1,000 ML IV ONE (11:35)
[2022-09-16 11:47] LABS: CK-MB VALUE MASS < 1.0 NG/ML (<3.6); LIPASE 37 U/L (12-53)
[2022-09-16 11:48] LABS: AMYLASE 83 U/L (30-118)
[2022-09-16 11:49] LABS: ALBUMIN 3.3 G/DL (3.2-5.2); ALKALINE PHOSPHATASE 78 U/L (46-116); ALT/SGPT 42 U/L (7.0-40); AST/SGOT 35 U/L (<34); BILIRUBIN,DIRECT 0.3 MG/DL (<0.4); BILIRUBIN,TOTAL 0.6 MG/DL (0.3-1.2); BLOOD UREA NITROGEN 23 MG/DL (9-23); CALCIUM LEVEL 8.4 MG/DL (8.3-10.6); CARBON DIOXIDE LEVEL 25 MMOL/L (20-31); CHLORIDE LEVEL 103 MMOL/L (98-107); CPK CREATINE PHOSPHOKINASE 22 U/L (46-171); GLOMERULAR FILTRATION RATE > 60.0 (>35); GLUCOSE, FASTING 103 MG/DL (74-106); MB/CK RELATIVE INDEX 4.54 (< OR =4); POTASSIUM SERUM 3.7 MMOL/L (3.5-5.1); SODIUM LEVEL 137 MMOL/L (136-145); TOTAL PROTEIN 5.8 G/DL (5.7-8.2)
[2022-09-16 11:51] LABS: THYROID STIMULATING HORMONE 1.991 uIU/ML (0.55-4.78)
[2022-09-16 12:09] LABS: ETHYL ALCOHOL (ETHANOL) < 0.003 % (0.000-0.010)
[2022-09-16 12:11] LABS: ACETAMINOPHEN LEVEL < 2.0 UG/ML (10.0-20.0); SALICYLATE LEVEL < 3.0 MG/DL (<30)
[2022-09-16 12:27] LABS: CK-MB VALUE MASS < 1.0 NG/ML (<3.6)
[2022-09-16 12:28] LABS: CPK CREATINE PHOSPHOKINASE 22 U/L (46-171); MB/CK RELATIVE INDEX 4.54 (< OR =4)
[2022-09-16] MEDS ORDERED: ACETAMINOPHEN TAB 650MG DOSE (2X325MG) PO ONE (12:50)
[2022-09-16] MEDS ORDERED: ERYT5OIN25 OD (13:32)
[2022-09-16] MEDS ORDERED: OMEP40CA5 PO (13:33)
[2022-09-16] MEDS ORDERED: HOME MED LIST COMPLETE! XX SCH (13:35)
[2022-09-16] MEDS ORDERED: ACETAMINOPHEN TAB 650MG DOSE (2X325MG) PO PRN (13:45)
[2022-09-16] MEDS ORDERED: MOM 30ML SUSPENSION UDC PO PRN (13:45)
[2022-09-16] MEDS ORDERED: ALBUTEROL 90 MCG/ACT 8GM HFA INHALER INH PRN (13:45)
[2022-09-16] MEDS: IPRATROPIUM 0.5MG/ALBUTEROL 2.5MG INH SOL UD 3ML (DUONEB) INH SCH ×2 (14:00→19:17)
[2022-09-16 14:53] LABS: INR 0.84; PROTHROMBIN TIME 11.7 SECONDS (12.5-14.5)
[2022-09-16 15:19] LABS: IRON (FE) 58 UG/DL (65-175); PERCENT SATURATION 23.5 % (19.7-50.0); TOTAL IRON BINDING CAPACITY 247 UG/DL (250-425)
[2022-09-16 15:22] LABS: FERRITIN 753.7 NG/ML (10.5-307.3); FOLATE 7.42 NG/ML (>5.4)
[2022-09-16] MEDS: ALBUTEROL SULFATE 2.5MG/0.5ML INH NEB SOLN INH SCH ×2 (16:00→20:00)
[2022-09-16 16:25] VITALS: BP 115/63
[2022-09-16 16:28] VITALS: BP_SYST 117; BP_SYST 92; BP_DIAS 56; BP_DIAS 59
[2022-09-16] MEDS: cefTRIAXone SOD 1 GM in D5W MINI-BAG PLUS 50 ML IV SCH (17:25)
[2022-09-16] MEDS ORDERED: DOXYCYCLINE HYCLATE 100MG TABLET PO SCH (18:00)
[2022-09-16] MEDS: predniSONE 50 MG TAB PO SCH (18:50)
[2022-09-16 20:41] VITALS: BP 132/59
[2022-09-16] MEDS: PYRIDOSTIGMINE 60MG TABLET PO SCH (22:15)
[2022-09-16] MEDS: MYCOPHENOLATE MOFETIL 250 MG CAP (J7517) PO SCH (22:15)
[2022-09-16] MEDS: ONDANSETRON 4MG ORAL DISINTEGRATING TAB PO PRN (22:16)
[2022-09-16] MEDS: RIVAROXABAN 10MG TAB (XARELTO) PO SCH (22:16)
[2022-09-16] MEDS: ATORVASTATIN 20 MG TAB PO SCH (22:16)
[2022-09-17 00:15] VITALS: BP 120/62
[2022-09-17] MEDS: IPRATROPIUM 0.5MG/ALBUTEROL 2.5MG INH SOL UD 3ML (DUONEB) INH SCH ×4 (01:03→19:14)
[2022-09-17] MEDS ORDERED: VANCOMYCIN HCL 750 MG, VIAL MATE ADAPTER 1 EACH in D5W 250 ML IV ONE ×2 (03:00→04:00)
[2022-09-17 05:26] VITALS: BP 125/59
[2022-09-17 06:52] LABS: HEMATOCRIT 33.4 % (42.0-52.0); HEMOGLOBIN 10.9 g/dl (13.5-17.5); MEAN CORPUSCULAR HEMOGLOBIN 29.9 pg (27.0-33.0); MEAN CORPUSCULAR HGB CONC 32.6 g/dl (32.0-36.5); MEAN CORPUSCULAR VOLUME 91.5 fl (80.0-96.0); PLATELET COUNT, AUTOMATED 175 10^3/uL (150-450); RED BLOOD COUNT 3.65 10^6/uL (4.30-6.10); WHITE BLOOD COUNT 3.9 10^3/uL (4.0-10.0)
[2022-09-17 07:19] LABS: HEMOGLOBIN A1c 5.4 % (4.0-6.0)
[2022-09-17 07:22] LABS: BLOOD UREA NITROGEN 18 MG/DL (9-23); CARBON DIOXIDE LEVEL 25 MMOL/L (20-31); CHLORIDE LEVEL 102 MMOL/L (98-107); CHOLESTEROL LEVEL 82 MG/DL (<200); CHOLESTEROL RISK RATIO 5.77 (<5); CREATININE FOR GFR 0.81 MG/DL (0.70-1.30); GLOMERULAR FILTRATION RATE > 60.0 (>35); GLUCOSE, FASTING 195 MG/DL (74-106); HDL CHOLESTEROL 14.2 MG/DL (>40); LDL CHOLESTEROL 43.2 MG/DL (<100); NON-HDL-C 67.8 MG/DL; POTASSIUM SERUM 3.4 MMOL/L (3.5-5.1); SODIUM LEVEL 135 MMOL/L (136-145); TRIGLYCERIDES LEVEL 123 MG/DL (<150)
[2022-09-17] MEDS ORDERED: POTASSIUM CHLORIDE 10MEQ SR TABLET PO ONE (08:00)
[2022-09-17] MEDS: ALBUTEROL SULFATE 2.5MG/0.5ML INH NEB SOLN INH SCH ×2 (08:01)
[2022-09-17 08:08] VITALS: BP 118/59
[2022-09-17] MEDS: ERYTHROMYCIN OPHTH OINT OD SCH ×4 (09:00→21:43)
[2022-09-17] MEDS: OMEPRAZOLE 20MG CAP PO SCH (09:25)
[2022-09-17] MEDS: predniSONE 50 MG TAB PO SCH (09:25)
[2022-09-17] MEDS: ASPIRIN 81MG ENTERIC TABLET PO SCH (09:25)
[2022-09-17] MEDS: MYCOPHENOLATE MOFETIL 250 MG CAP (J7517) PO SCH ×2 (09:25→21:43)
[2022-09-17] MEDS: PYRIDOSTIGMINE 60MG TABLET PO SCH ×3 (09:26→21:43)
[2022-09-17] MEDS: CLOPIDOGREL 75 MG TAB PO SCH (09:26)
[2022-09-17] MEDS: MULTIVITAMINS/MINERALS THERAP 1 TAB PO SCH (09:26)
[2022-09-17] MEDS: FLUTICASONE PROP 0.05% NASAL SPRAY 16 GM (FLONASE) NARES SCH (09:26)
[2022-09-17] MEDS: valACYclovir HCL 500 MG TAB PO SCH (11:28)
[2022-09-17 12:00] VITALS: BP 126/63
[2022-09-17] MEDS ORDERED: PYRIDOSTIGMINE 60MG TABLET PO SCH (13:00)
[2022-09-17] MEDS ORDERED: DOXYCYCLINE HYCLATE 100MG TABLET PO ONE (15:15)
[2022-09-17] MEDS: cefTRIAXone SOD 1 GM in D5W MINI-BAG PLUS 50 ML IV SCH (15:24)
[2022-09-17 16:00] VITALS: BP 115/55
[2022-09-17] MEDS ORDERED: VANCOMYCIN HCL 1,000 MG, VIAL MATE ADAPTER 1 EACH in D5W 250 ML IV SCH (16:00)
[2022-09-17 20:02] VITALS: BP 110/56
[2022-09-17] MEDS ORDERED: RAMELTEON 8 MG TAB (ROZEREM) PO SCH (21:00)
[2022-09-17] MEDS: ATORVASTATIN 20 MG TAB PO SCH (21:43)
[2022-09-17] MEDS: DOXYCYCLINE HYCLATE 100MG TABLET PO SCH (21:43)
[2022-09-17] MEDS: RIVAROXABAN 10MG TAB (XARELTO) PO SCH (21:43)
[2022-09-18 00:22] VITALS: BP 101/55
[2022-09-18] MEDS: IPRATROPIUM 0.5MG/ALBUTEROL 2.5MG INH SOL UD 3ML (DUONEB) INH SCH ×2 (01:13→07:16)
[2022-09-18 04:52] VITALS: BP 114/57
[2022-09-18 05:44] LABS: MEAN CORPUSCULAR HEMOGLOBIN 30.3 pg (27.0-33.0); MEAN CORPUSCULAR HGB CONC 33.3 g/dl (32.0-36.5); MEAN CORPUSCULAR VOLUME 90.9 fl (80.0-96.0); PLATELET COUNT, AUTOMATED 196 10^3/uL (150-450); RED BLOOD COUNT 3.63 10^6/uL (4.30-6.10); WHITE BLOOD COUNT 7.6 10^3/uL (4.0-10.0)
[2022-09-18 06:07] LABS: BLOOD UREA NITROGEN 18 MG/DL (9-23); CALCIUM LEVEL 8.4 MG/DL (8.3-10.6); CARBON DIOXIDE LEVEL 24 MMOL/L (20-31); CHLORIDE LEVEL 106 MMOL/L (98-107); GLOMERULAR FILTRATION RATE > 60.0 (>35); GLUCOSE, FASTING 108 MG/DL (74-106); MAGNESIUM LEVEL 1.4 MG/DL (1.8-2.4); POTASSIUM SERUM 3.2 MMOL/L (3.5-5.1); SODIUM LEVEL 139 MMOL/L (136-145)
[2022-09-18] MEDS: MAG SULF 1GM/100ML (MAG RUN) 1 GM in IV 1 EA IV SCH ×2 (07:53→10:09)
[2022-09-18] MEDS ORDERED: POTASSIUM CHLORIDE 10MEQ SR TABLET PO ONE ×2 (08:00→10:00)
[2022-09-18 08:26] VITALS: BP 110/50
[2022-09-18] MEDS: FLUTICASONE PROP 0.05% NASAL SPRAY 16 GM (FLONASE) NARES SCH (10:10)
[2022-09-18] MEDS: ERYTHROMYCIN OPHTH OINT OD SCH ×2 (10:10→13:08)
[2022-09-18] MEDS: DOXYCYCLINE HYCLATE 100MG TABLET PO SCH (10:12)
[2022-09-18] MEDS: CLOPIDOGREL 75 MG TAB PO SCH (10:12)
[2022-09-18] MEDS: ASPIRIN 81MG ENTERIC TABLET PO SCH (10:12)
[2022-09-18] MEDS: MYCOPHENOLATE MOFETIL 250 MG CAP (J7517) PO SCH (10:13)
[2022-09-18] MEDS: PYRIDOSTIGMINE 60MG TABLET PO SCH (10:13)
[2022-09-18] MEDS: valACYclovir HCL 500 MG TAB PO SCH (10:13)
[2022-09-18] MEDS: MULTIVITAMINS/MINERALS THERAP 1 TAB PO SCH (10:14)
[2022-09-18] MEDS: predniSONE 50 MG TAB PO SCH (10:14)
[2022-09-18] MEDS: OMEPRAZOLE 20MG CAP PO SCH (10:14)
[2022-09-18] MEDS ORDERED: PYRI60TA2 PO ×2 (11:02→12:22)
[2022-09-18] MEDS ORDERED: PRED50TA PO ×2 (11:02→12:22)
[2022-09-18] MEDS: ONDANSETRON 4MG ORAL DISINTEGRATING TAB PO PRN (11:52)
[2022-09-18 12:33] VITALS: BP 130/66
[2022-09-18] MEDS ORDERED: CEFD300C41 PO (13:25)
[2022-09-18] MEDS ORDERED: DOXY-444 PO (13:25)
[2022-09-20 15:12] LABS: BODY FLUID CULTURE Not indicated. (.); LEGIONELLA ANTIGEN URINE Negative (Negative); ORGANISM ID Not indicated. (.); SPECIMEN SOURCE Urine (.); URINE STREP PNEUMONIAE ANTIGEN Negative (Negative)
== END 2022-09-18 14:37 | disposition home health service (06) | DRG 56 ==
LOC: M ED 10:39 → EDBD 10:39 → M ED INP 13:44 → ENRESERV 14:46 → M PCU 16:05
PROVIDERS: ADMIT Student in an Organized Health Care Education/Training Program; ATTEND Internal Medicine
DX: G70.01 Myasthenia gravis with (acute) exacerbation (principal); J18.9 Pneumonia, unspecified organism; J45.901 Unspecified asthma with (acute) exacerbation; D64.9 Anemia, unspecified; E78.5 Hyperlipidemia, unspecified; K21.9 Gastro-esophageal reflux disease without esophagitis; Z86.73 Personal history of transient ischemic attack (TIA), and cerebral infarction without residual deficits; H35.30 Unspecified macular degeneration; K52.9 Noninfective gastroenteritis and colitis, unspecified; Z88.8 Allergy status to other drugs, medicaments and biological substances; Z79.899 Other long term (current) drug therapy; Z79.82 Long term (current) use of aspirin; Z96.651 Presence of right artificial knee joint; I65.21 Occlusion and stenosis of right carotid artery; K44.9 Diaphragmatic hernia without obstruction or gangrene

== ENCOUNTER → 2022-09-24 | Outpatient (REF) | payer MEDICARE, BC ==
[~2022-09-24] MED LIST changes: +CEFD300C41 PO; +DOXY-444 PO; +ERYT5OIN25 OD; +OMEP40CA5 PO; +PRED50TA PO
== END ==
LOC: M LAB REF 11:03
PROVIDERS: ATTEND Internal Medicine
DX: R78.81 Bacteremia (principal)

== ENCOUNTER 2022-09-25 11:02 | Emergency (ER) | payer MEDICARE, BC ==
[~2022-09-25] VITALS: Ht 177.8 cm; Wt 80.9 kg
[2022-09-25] MEDS ORDERED: LIDOCAINE 2% 5ML JELLY UROJET TOP ONE (11:40)
[2022-09-25 12:29] LABS: BASO % 0.6 % (0.0-1.0); EOS # 0.1 10^3/uL (0.0-0.5); EOS % 2.8 % (0.0-3.0); HEMATOCRIT 36.6 % (42.0-52.0); LYMPH # 0.4 10^3/uL (1.5-5.0); LYMPH % 12.1 % (24.0-44.0); MEAN CORPUSCULAR HEMOGLOBIN 30.1 pg (27.0-33.0); MEAN CORPUSCULAR HGB CONC 32.8 g/dl (32.0-36.5); MEAN CORPUSCULAR VOLUME 91.7 fl (80.0-96.0); MONO # 0.2 10^3/uL (0.0-0.8); MONO % 4.5 % (2.0-8.0); NEUTROPHILS # 2.8 10^3/uL (1.5-8.5); NEUTROPHILS % 77.8 % (36.0-66.0); PLATELET COUNT, AUTOMATED 148 10^3/uL (150-450); RED BLOOD COUNT 3.99 10^6/uL (4.30-6.10); WHITE BLOOD COUNT 3.6 10^3/uL (4.0-10.0)
[2022-09-25] MEDS ORDERED: NS 500 ML IV ONE (12:40)
[2022-09-25 12:51] LABS: ALKALINE PHOSPHATASE 65 U/L (46-116); ALT/SGPT 44 U/L (7.0-40); AST/SGOT 58 U/L (<34); BILIRUBIN,DIRECT 0.2 MG/DL (<0.4); BILIRUBIN,TOTAL 0.7 MG/DL (0.3-1.2); BLOOD UREA NITROGEN 22 MG/DL (9-23); CALCIUM LEVEL 8.1 MG/DL (8.3-10.6); CARBON DIOXIDE LEVEL 26 MMOL/L (20-31); CHLORIDE LEVEL 105 MMOL/L (98-107); CREATININE FOR GFR 1.06 MG/DL (0.70-1.30); FREE T4 1.09 NG/DL (0.89-1.76); GLOMERULAR FILTRATION RATE > 60.0 (>35); GLUCOSE, FASTING 96 MG/DL (74-106); POTASSIUM SERUM 5.4 MMOL/L (3.5-5.1); SODIUM LEVEL 132 MMOL/L (136-145); THYROID STIMULATING HORMONE 2.727 uIU/ML (0.55-4.78); TOTAL PROTEIN 5.5 G/DL (5.7-8.2)
[2022-09-25 14:43] VITALS: O2SAT 94
[2022-09-25] MEDS ORDERED: methylPREDNISolone 40MG 1ML VIAL IV ONE (15:10)
[2022-09-25 16:00] VITALS: BP 119/66
[2022-09-30] MEDS ORDERED: LEVO1TAB39 PO (08:45)
== END 2022-09-25 16:27 | disposition home or self-care (01) ==
LOC: M ED 11:02 → EDBD 11:02 → M ED 16:27
DX: R53.1 Weakness (principal); B34.8 Other viral infections of unspecified site; E78.5 Hyperlipidemia, unspecified; J45.909 Unspecified asthma, uncomplicated; G70.00 Myasthenia gravis without (acute) exacerbation; Z86.73 Personal history of transient ischemic attack (TIA), and cerebral infarction without residual deficits; Z79.01 Long term (current) use of anticoagulants; Z79.82 Long term (current) use of aspirin; Z79.899 Other long term (current) drug therapy; Z88.8 Allergy status to other drugs, medicaments and biological substances

== ENCOUNTER 2022-09-27 13:54 | Inpatient (IN) | payer MEDICARE, BC ==
[~2022-09-27] VITALS: Ht 175.3 cm; Wt 77.5 kg
[2022-09-27 15:09] LABS: BASO % 0.3 % (0.0-1.0); EOS % 0.3 % (0.0-3.0); HEMATOCRIT 38.4 % (42.0-52.0); HEMOGLOBIN 12.5 g/dl (13.5-17.5); LYMPH # 0.3 10^3/uL (1.5-5.0); LYMPH % 6.6 % (24.0-44.0); MEAN CORPUSCULAR HGB CONC 32.6 g/dl (32.0-36.5); MEAN CORPUSCULAR VOLUME 92.1 fl (80.0-96.0); MONO # 0.2 10^3/uL (0.0-0.8); MONO % 3.8 % (2.0-8.0); NEUTROPHILS # 3.5 10^3/uL (1.5-8.5); NEUTROPHILS % 88.2 % (36.0-66.0); PLATELET COUNT, AUTOMATED 143 10^3/uL (150-450); RED BLOOD COUNT 4.17 10^6/uL (4.30-6.10); WHITE BLOOD COUNT 3.9 10^3/uL (4.0-10.0)
[2022-09-27 15:32] LABS: CK-MB VALUE MASS < 1.0 NG/ML (<3.6)
[2022-09-27 15:36] LABS: THYROID STIMULATING HORMONE 1.194 uIU/ML (0.55-4.78)
[2022-09-27 15:38] LABS: ALBUMIN 3.3 G/DL (3.2-5.2); ALKALINE PHOSPHATASE 68 U/L (46-116); ALT/SGPT 39 U/L (7.0-40); AST/SGOT 38 U/L (<34); BILIRUBIN,DIRECT 0.2 MG/DL (<0.4); BILIRUBIN,TOTAL 0.6 MG/DL (0.3-1.2); BLOOD UREA NITROGEN 21 MG/DL (9-23); CALCIUM LEVEL 8.8 MG/DL (8.3-10.6); CARBON DIOXIDE LEVEL 27 MMOL/L (20-31); CHLORIDE LEVEL 103 MMOL/L (98-107); CPK CREATINE PHOSPHOKINASE 26 U/L (46-171); CREATININE FOR GFR 1.01 MG/DL (0.70-1.30); GLOMERULAR FILTRATION RATE > 60.0 (>35); GLUCOSE, FASTING 117 MG/DL (74-106); MB/CK RELATIVE INDEX 3.84 (< OR =4); POTASSIUM SERUM 4.2 MMOL/L (3.5-5.1); SODIUM LEVEL 138 MMOL/L (136-145); TOTAL PROTEIN 5.7 G/DL (5.7-8.2)
[2022-09-27 15:43] LABS: RSV AMPLIFICATION NEGATIVE (NEGATIVE)
[2022-09-27] MEDS ORDERED: PYRI60TA2 PO (16:09)
[2022-09-27] MEDS ORDERED: PRED20TA PO (16:09)
[2022-09-27] MEDS ORDERED: HOME MED LIST COMPLETE! XX SCH (16:15)
[2022-09-27 18:05] VITALS: BP 130/71
[2022-09-27 20:00] VITALS: BP 143/74
[2022-09-27] MEDS ORDERED: ALBUTEROL 90 MCG/ACT 8GM HFA INHALER INH PRN (20:05)
[2022-09-27] MEDS ORDERED: ACETAMINOPHEN TAB 650MG DOSE (2X325MG) PO PRN (20:05)
[2022-09-27] MEDS: MYCOPHENOLATE MOFETIL 250 MG CAP (J7517) PO SCH (20:55)
[2022-09-27] MEDS: ATORVASTATIN 20 MG TAB PO SCH (20:55)
[2022-09-27] MEDS: RAMELTEON 8 MG TAB (ROZEREM) PO PRN (20:55)
[2022-09-27] MEDS: PYRIDOSTIGMINE 60MG TABLET PO SCH (20:55)
[2022-09-27] MEDS: OMEPRAZOLE 20MG CAP PO SCH (20:56)
[2022-09-27] MEDS: ERYTHROMYCIN OPHTH OINT OD SCH (20:56)
[2022-09-28 05:18] VITALS: BP 118/60
[2022-09-28 06:00] LABS: BASO % 0.5 % (0.0-1.0); EOS # 0.1 10^3/uL (0.0-0.5); EOS % 1.4 % (0.0-3.0); HEMATOCRIT 32.3 % (42.0-52.0); HEMOGLOBIN 10.8 g/dl (13.5-17.5); LYMPH # 0.4 10^3/uL (1.5-5.0); LYMPH % 9.3 % (24.0-44.0); MEAN CORPUSCULAR HEMOGLOBIN 30.5 pg (27.0-33.0); MEAN CORPUSCULAR HGB CONC 33.4 g/dl (32.0-36.5); MEAN CORPUSCULAR VOLUME 91.2 fl (80.0-96.0); MONO # 0.3 10^3/uL (0.0-0.8); MONO % 6.1 % (2.0-8.0); NEUTROPHILS # 3.5 10^3/uL (1.5-8.5); NEUTROPHILS % 81.8 % (36.0-66.0); PLATELET COUNT, AUTOMATED 128 10^3/uL (150-450); RED BLOOD COUNT 3.54 10^6/uL (4.30-6.10); WHITE BLOOD COUNT 4.3 10^3/uL (4.0-10.0)
[2022-09-28 06:25] LABS: BLOOD UREA NITROGEN 23 MG/DL (9-23); CALCIUM LEVEL 8.1 MG/DL (8.3-10.6); CARBON DIOXIDE LEVEL 26 MMOL/L (20-31); CHLORIDE LEVEL 104 MMOL/L (98-107); CREATININE FOR GFR 0.92 MG/DL (0.70-1.30); GLOMERULAR FILTRATION RATE > 60.0 (>35); GLUCOSE, FASTING 98 MG/DL (74-106); POTASSIUM SERUM 3.6 MMOL/L (3.5-5.1); SODIUM LEVEL 136 MMOL/L (136-145)
[2022-09-28 08:20] LABS: ERYTHROCYTE SEDIMENTATION RATE 8 mm/hr (0-20)
[2022-09-28] MEDS: ERYTHROMYCIN OPHTH OINT OD SCH ×4 (08:42→20:07)
[2022-09-28] MEDS: GASTROGRAFIN SOLUTION 30ML PO SCH ×2 (08:42→09:16)
[2022-09-28] MEDS: FLUTICASONE PROP 0.05% NASAL SPRAY 16 GM (FLONASE) NARES SCH (08:42)
[2022-09-28] MEDS: PYRIDOSTIGMINE 60MG TABLET PO SCH ×3 (08:43→20:06)
[2022-09-28] MEDS: ASPIRIN 81MG ENTERIC TABLET PO SCH (08:43)
[2022-09-28] MEDS: CLOPIDOGREL 75 MG TAB PO SCH (08:43)
[2022-09-28] MEDS: MULTIVITAMINS/MINERALS THERAP 1 TAB PO SCH (08:43)
[2022-09-28] MEDS: MYCOPHENOLATE MOFETIL 250 MG CAP (J7517) PO SCH ×2 (08:43→20:06)
[2022-09-28] MEDS ORDERED: predniSONE 20 MG TAB PO SCH (09:00)
[2022-09-28] MEDS ORDERED: valACYclovir HCL 500 MG TAB PO SCH (09:00)
[2022-09-28 10:04] LABS: MONO REFLEX EBV COMP NEGATIVE (NEGATIVE)
[2022-09-28] MEDS: MEGESTROL ES SUSP 625MG 5ML ORAL SYRINGE PO SCH (11:25)
[2022-09-28 14:00] VITALS: BP 106/58
[2022-09-28] MEDS: OMEPRAZOLE 20MG CAP PO SCH (20:06)
[2022-09-28] MEDS: RAMELTEON 8 MG TAB (ROZEREM) PO PRN (20:06)
[2022-09-28] MEDS: ATORVASTATIN 20 MG TAB PO SCH (20:06)
[2022-09-28 21:15] VITALS: BP 108/58
[2022-09-29 06:00] VITALS: BP 133/81
[2022-09-29 06:06] LABS: BASO % 0.2 % (0.0-1.0); EOS # 0.1 10^3/uL (0.0-0.5); EOS % 1.5 % (0.0-3.0); HEMATOCRIT 31.4 % (42.0-52.0); HEMOGLOBIN 10.6 g/dl (13.5-17.5); LYMPH # 0.6 10^3/uL (1.5-5.0); LYMPH % 12.1 % (24.0-44.0); MEAN CORPUSCULAR HEMOGLOBIN 30.5 pg (27.0-33.0); MEAN CORPUSCULAR HGB CONC 33.8 g/dl (32.0-36.5); MEAN CORPUSCULAR VOLUME 90.2 fl (80.0-96.0); MONO # 0.2 10^3/uL (0.0-0.8); MONO % 4.5 % (2.0-8.0); NEUTROPHILS # 3.8 10^3/uL (1.5-8.5); NEUTROPHILS % 80.6 % (36.0-66.0); PLATELET COUNT, AUTOMATED 122 10^3/uL (150-450); RED BLOOD COUNT 3.48 10^6/uL (4.30-6.10); WHITE BLOOD COUNT 4.7 10^3/uL (4.0-10.0)
[2022-09-29 06:30] LABS: BLOOD UREA NITROGEN 22 MG/DL (9-23); CALCIUM LEVEL 7.6 MG/DL (8.3-10.6); CARBON DIOXIDE LEVEL 26 MMOL/L (20-31); CHLORIDE LEVEL 103 MMOL/L (98-107); CREATININE FOR GFR 0.84 MG/DL (0.70-1.30); GLOMERULAR FILTRATION RATE > 60.0 (>35); GLUCOSE, FASTING 100 MG/DL (74-106); POTASSIUM SERUM 3.2 MMOL/L (3.5-5.1); SODIUM LEVEL 136 MMOL/L (136-145)
[2022-09-29] MEDS: MYCOPHENOLATE MOFETIL 250 MG CAP (J7517) PO SCH (09:43)
[2022-09-29] MEDS: ASPIRIN 81MG ENTERIC TABLET PO SCH (09:43)
[2022-09-29] MEDS: PYRIDOSTIGMINE 60MG TABLET PO SCH ×2 (09:43→16:27)
[2022-09-29] MEDS: MULTIVITAMINS/MINERALS THERAP 1 TAB PO SCH (09:43)
[2022-09-29] MEDS: CLOPIDOGREL 75 MG TAB PO SCH (09:43)
[2022-09-29] MEDS: MEGESTROL ES SUSP 625MG 5ML ORAL SYRINGE PO SCH (09:44)
[2022-09-29] MEDS: ERYTHROMYCIN OPHTH OINT OD SCH ×3 (09:44→16:27)
[2022-09-29] MEDS: FLUTICASONE PROP 0.05% NASAL SPRAY 16 GM (FLONASE) NARES SCH (09:44)
[2022-09-29] MEDS ORDERED: predniSONE 20 MG TAB PO ONE (10:00)
[2022-09-29] MEDS ORDERED: POTASSIUM CHLORIDE 10MEQ SR TABLET PO ONE (12:00)
[2022-09-29 14:32] VITALS: BP 133/84
[2022-09-29] MEDS ORDERED: MEGE1SUS8 PO (17:58)
[2022-09-29 18:07] LABS: EBV AB TO NUCLEAR ANTIGEN <18.0 U/mL (0.0-17.9); EBV VIRAL CAPSID AG IgG 81.6 U/mL (0.0-17.9); EBV VIRAL CAPSID AG IgM <36.0 U/mL (0.0-35.9)
[2022-09-30] MEDS ORDERED: LEVO1TAB39 PO (08:45)
[2022-09-30] MEDS ORDERED: predniSONE 20 MG TAB PO SCH (09:00)
== END 2022-09-29 18:08 | disposition home health service (06) | DRG 87 ==
LOC: M ED 13:54 → M ED INP 15:47 → M MSPAV 18:05
PROVIDERS: ADMIT General Practice; ATTEND General Practice
PROC: B246ZZZ Ultrasonography of Right and Left Heart (ICD-10-PCS; principal; 2022-09-29)
DX: S06.9X0A Unspecified intracranial injury without loss of consciousness, initial encounter (principal); E78.5 Hyperlipidemia, unspecified; G70.00 Myasthenia gravis without (acute) exacerbation; Z88.8 Allergy status to other drugs, medicaments and biological substances; R29.6 Repeated falls; R50.9 Fever, unspecified; J45.909 Unspecified asthma, uncomplicated; R26.89 Other abnormalities of gait and mobility; H35.30 Unspecified macular degeneration; B34.8 Other viral infections of unspecified site; K21.9 Gastro-esophageal reflux disease without esophagitis; Z79.899 Other long term (current) drug therapy; Z79.82 Long term (current) use of aspirin; Z87.891 Personal history of nicotine dependence; Z79.52 Long term (current) use of systemic steroids; Z86.73 Personal history of transient ischemic attack (TIA), and cerebral infarction without residual deficits; Z79.01 Long term (current) use of anticoagulants; W01.0XXA Fall on same level from slipping, tripping and stumbling without subsequent striking against object, initial encounter; Y92.009 Unspecified place in unspecified non-institutional (private) residence as the place of occurrence of the external cause; Z66 Do not resuscitate

== ENCOUNTER 2022-10-09 12:29 | Observation (INO) | payer MEDICARE, BC ==
[~2022-10-09] VITALS: Ht 177.8 cm; Wt 69.5 kg
[~2022-10-09 12:29] MED LIST changes: +ALBU2.5V10 INH; -ALBU2.5V10 PO; -HYDR200T3 PO; +HYDR200T46 PO; +MEGE1SUS8 PO
[2022-10-09 14:19] LABS: BASO % 0.5 % (0.0-1.0); EOS % 0.2 % (0.0-3.0); HEMATOCRIT 36.8 % (42.0-52.0); LYMPH # 0.3 10^3/uL (1.5-5.0); MEAN CORPUSCULAR HEMOGLOBIN 29.9 pg (27.0-33.0); MEAN CORPUSCULAR HGB CONC 32.6 g/dl (32.0-36.5); MEAN CORPUSCULAR VOLUME 91.5 fl (80.0-96.0); MONO # 0.2 10^3/uL (0.0-0.8); MONO % 3.7 % (2.0-8.0); NEUTROPHILS # 3.7 10^3/uL (1.5-8.5); NEUTROPHILS % 85.1 % (36.0-66.0); PLATELET COUNT, AUTOMATED 183 10^3/uL (150-450); RED BLOOD COUNT 4.02 10^6/uL (4.30-6.10); WHITE BLOOD COUNT 4.3 10^3/uL (4.0-10.0)
[2022-10-09 14:42] LABS: ALBUMIN 3.2 G/DL (3.2-5.2); ALKALINE PHOSPHATASE 54 U/L (46-116); ALT/SGPT 54 U/L (7.0-40); AST/SGOT 42 U/L (<34); BILIRUBIN,DIRECT 0.2 MG/DL (<0.4); BILIRUBIN,TOTAL 0.6 MG/DL (0.3-1.2); BLOOD UREA NITROGEN 39 MG/DL (9-23); CALCIUM LEVEL 8.5 MG/DL (8.3-10.6); CARBON DIOXIDE LEVEL 21 MMOL/L (20-31); CHLORIDE LEVEL 106 MMOL/L (98-107); CREATININE FOR GFR 1.05 MG/DL (0.70-1.30); GLOMERULAR FILTRATION RATE > 60.0 (>35); GLUCOSE, FASTING 114 MG/DL (74-106); POTASSIUM SERUM 4.6 MMOL/L (3.5-5.1); SODIUM LEVEL 135 MMOL/L (136-145); TOTAL PROTEIN 5.6 G/DL (5.7-8.2)
[2022-10-09 14:44] LABS: THYROID STIMULATING HORMONE 1.503 uIU/ML (0.55-4.78)
[2022-10-09 15:18] LABS: RSV AMPLIFICATION NEGATIVE (NEGATIVE)
[2022-10-09] MEDS ORDERED: ALBUTEROL 90 MCG/ACT 8GM HFA INHALER INH PRN (18:20)
[2022-10-09] MEDS ORDERED: ALBUTEROL SULFATE 2.5MG/0.5ML INH NEB SOLN INH PRN (18:20)
[2022-10-09] MEDS ORDERED: MEGE1SUS8 PO (18:21)
[2022-10-09] MEDS ORDERED: PREDOPD OS (18:21)
[2022-10-09] MEDS ORDERED: HOME MED LIST COMPLETE! XX SCH (18:25)
[2022-10-09 20:39] VITALS: BP 125/73; TEMP 98.8; O2SAT 96
[2022-10-09] MEDS ORDERED: CEFDINIR 300 MG CAP (OMNICEF) PO SCH (21:00)
[2022-10-09] MEDS: ATORVASTATIN 20 MG TAB PO SCH (21:23)
[2022-10-09] MEDS: ENOXAPARIN 40MG/0.4ML SYRINGE (J1650 PER 10MG) SC SCH (21:23)
[2022-10-09] MEDS: ERYTHROMYCIN OPHTH OINT OD SCH (22:19)
[2022-10-09] MEDS: prednisoLONE ACET 1% OPHTH SUSP 5ML OS SCH (22:19)
[2022-10-09] MEDS: MYCOPHENOLATE MOFETIL 250 MG CAP (J7517) PO SCH (22:20)
[2022-10-09] MEDS: PYRIDOSTIGMINE 60MG TABLET PO SCH (22:20)
[2022-10-10 05:08] VITALS: BP 123/69; TEMP 99.3; O2SAT 98
[2022-10-10 05:54] LABS: HEMATOCRIT 36.2 % (42.0-52.0); MEAN CORPUSCULAR HEMOGLOBIN 29.7 pg (27.0-33.0); MEAN CORPUSCULAR HGB CONC 33.1 g/dl (32.0-36.5); MEAN CORPUSCULAR VOLUME 89.6 fl (80.0-96.0); PLATELET COUNT, AUTOMATED 180 10^3/uL (150-450); RED BLOOD COUNT 4.04 10^6/uL (4.30-6.10); WHITE BLOOD COUNT 5.6 10^3/uL (4.0-10.0)
[2022-10-10 06:17] LABS: BLOOD UREA NITROGEN 38 MG/DL (9-23); CALCIUM LEVEL 8.9 MG/DL (8.3-10.6); CARBON DIOXIDE LEVEL 22 MMOL/L (20-31); CHLORIDE LEVEL 105 MMOL/L (98-107); CREATININE FOR GFR 1.02 MG/DL (0.70-1.30); GLOMERULAR FILTRATION RATE > 60.0 (>35); GLUCOSE, FASTING 83 MG/DL (74-106); POTASSIUM SERUM 4.3 MMOL/L (3.5-5.1); SODIUM LEVEL 134 MMOL/L (136-145)
[2022-10-10 07:58] LABS: ABG BASE EXCESS -2.8 (-2.0-2.0); ABG O2 SATURATION 97.8 % (95.0-99.0); ABG PARTIAL PRESSURE CO2 25.5 mmHg (35.0-45.0); ABG STANDARD HCO3 22.1 MMOL/L. (22.0-26.0); ABG TOTAL CO2 19.8 MMOL/L (23.0-31.0); ABG pH (ARTERIAL) 7.491 UNITS (7.350-7.450)
[2022-10-10] MEDS: predniSONE 20 MG TAB PO SCH (10:22)
[2022-10-10] MEDS: PANTOPRAZOLE 40MG TAB (PROTONIX) PO SCH (10:22)
[2022-10-10] MEDS: PYRIDOSTIGMINE 60MG TABLET PO SCH ×3 (10:22→22:06)
[2022-10-10] MEDS: MULTIVITAMINS/MINERALS THERAP 1 TAB PO SCH (10:22)
[2022-10-10] MEDS: CLOPIDOGREL 75 MG TAB PO SCH (10:22)
[2022-10-10] MEDS: ASPIRIN 81MG ENTERIC TABLET PO SCH (10:22)
[2022-10-10] MEDS: FLUTICASONE PROP 0.05% NASAL SPRAY 16 GM (FLONASE) NARES SCH (10:23)
[2022-10-10] MEDS: MYCOPHENOLATE MOFETIL 250 MG CAP (J7517) PO SCH ×2 (10:23→22:06)
[2022-10-10] MEDS: ERYTHROMYCIN OPHTH OINT OD SCH ×4 (10:23→22:04)
[2022-10-10] MEDS: prednisoLONE ACET 1% OPHTH SUSP 5ML OS SCH ×2 (10:24→22:05)
[2022-10-10] MEDS: MEGESTROL ES SUSP 625MG 5ML ORAL SYRINGE PO SCH (10:24)
[2022-10-10 14:00] VITALS: BP 121/68; TEMP 99; O2SAT 95
[2022-10-10 20:53] VITALS: BP 119/65; TEMP 98.6; O2SAT 97
[2022-10-10] MEDS: ATORVASTATIN 20 MG TAB PO SCH (22:05)
[2022-10-10] MEDS: ENOXAPARIN 40MG/0.4ML SYRINGE (J1650 PER 10MG) SC SCH (22:05)
[2022-10-11 06:00] VITALS: BP 112/70; TEMP 99; O2SAT 96
[2022-10-11] MEDS: D5W 1,000 ML IV SCH (08:46)
[2022-10-11] MEDS ORDERED: ACETAMINOPHEN TAB 650MG DOSE (2X325MG) PO PRN (08:50)
[2022-10-11] MEDS ORDERED: LORazepam 0.5 MG TAB PO ONE (09:00)
[2022-10-11] MEDS: prednisoLONE ACET 1% OPHTH SUSP 5ML OS SCH (09:00)
[2022-10-11] MEDS: ASPIRIN 81MG ENTERIC TABLET PO SCH (10:28)
[2022-10-11] MEDS: PANTOPRAZOLE 40MG TAB (PROTONIX) PO SCH (10:28)
[2022-10-11] MEDS: MULTIVITAMINS/MINERALS THERAP 1 TAB PO SCH (10:28)
[2022-10-11] MEDS: CLOPIDOGREL 75 MG TAB PO SCH (10:28)
[2022-10-11] MEDS: ERYTHROMYCIN OPHTH OINT OD SCH ×2 (10:29→13:00)
[2022-10-11] MEDS: MYCOPHENOLATE MOFETIL 250 MG CAP (J7517) PO SCH (10:29)
[2022-10-11] MEDS: FLUTICASONE PROP 0.05% NASAL SPRAY 16 GM (FLONASE) NARES SCH (10:29)
[2022-10-11] MEDS: MEGESTROL ES SUSP 625MG 5ML ORAL SYRINGE PO SCH (10:29)
[2022-10-11] MEDS: predniSONE 20 MG TAB PO SCH (10:29)
[2022-10-11] MEDS: PYRIDOSTIGMINE 60MG TABLET PO SCH (10:29)
[2022-10-11 14:00] VITALS: BP 118/62; TEMP 97.5; O2SAT 98
[2022-10-11] MEDS ORDERED: ONDANSETRON 4MG 2ML VIAL XX PRN (16:55)
[2022-10-11] MEDS ORDERED: LORazepam 1 MG TAB PO PRN (16:55)
[2022-10-11] MEDS ORDERED: MORPHINE 2 MG/ML 1ML VIAL IV PRN (16:55)
[2022-10-12] MEDS: D5W 1,000 ML IV SCH (05:49)
[2022-10-12] MEDS ORDERED: HYOS125TA PO (08:21)
[2022-10-12] MEDS ORDERED: ATIV1TAB10 PO (08:21)
[2022-10-12] MEDS ORDERED: LACT20EL PO (11:33)
[2022-10-12] MEDS ORDERED: MORP1SOL5 PO (11:33)
[2022-10-24 08:12] LABS: ACETYLCHOLINE RCPTOR BINDING A 0.98 nmol/L (0.00-0.24); ACETYLCHOLINE RCPTOR BLOCK AB 43 % (0-25)
== END 2022-10-12 16:23 | disposition home or self-care (01) ==
LOC: M ED 12:29 → INTOOBSV 18:00 → M ED INP 18:00 → M MSPAV 20:39
PROVIDERS: ADMIT Internal Medicine; ATTEND Internal Medicine
DX: G93.41 Metabolic encephalopathy (principal); R26.9 Unspecified abnormalities of gait and mobility; I63.9 Cerebral infarction, unspecified; G70.00 Myasthenia gravis without (acute) exacerbation; R54 Age-related physical debility; R29.6 Repeated falls; E78.5 Hyperlipidemia, unspecified; K21.9 Gastro-esophageal reflux disease without esophagitis; I65.21 Occlusion and stenosis of right carotid artery; Z79.82 Long term (current) use of aspirin; Z79.02 Long term (current) use of antithrombotics/antiplatelets; Z79.52 Long term (current) use of systemic steroids; Z79.899 Other long term (current) drug therapy
CPT/HCPCS: 36415; 70551; 71045; 74018; 80048; 80076; 81001; 82803; 83516; 83519; 83605; 84443; 85025; 85027; 86255; 87040; 87631; 93005; 93041; 94760; 96360; 96361; 96372; 99285; G0378; J1650; J7512; J7517